=== PATIENT | male | born 1960 | race American Indian/Alaskan Native ===

== ENCOUNTER 2017-12-29 10:38 | Emergency (ER) | payer BC ==
[2017-12-29 11:19] VITALS: BP 131/89
--- NOTE | 2017-12-29 12:47 | Emergency Department Report ---
ED General Adult HPI - General Chief complaint: Pain General Stated complaint: FULL BODY SPASM Time Seen by Provider: 12/29/17 12:47 Source: patient Mode of arrival: Ambulatory Limitations: No Limitations - History of Present Illness Initial comments: This is a 57-year-old male here complaining of generalized spasm for 2 days. He reports that he has had this in the past and he has been followed by Dr. Mendoza who gave him vitamin D. He said that this is something that he gets periodically. Patient states that he drinks more than 2 L of water daily. He reports that when he has as before he had blood work done at Dr. Mendoza's office and reports that everything was normal. Patient states that he does a lot of heavy lifting at work and he thinks this was causing this. Spasms intermittent that feels tight and 7 out of 10. No medication taken prior to coming to the emergency room. MD Complaint: Generalized muscle spasm Onset/Timin -: days(s) Location: neck, back, upper extremity, lower extremity Radiation: non-radiation Severity scale (0 -10): 7 Quality: other (tight) Improves with: rest Worsens with: movement Associated Symptoms: denies: confusion, chest pain, cough, diaphoresis, fever/ chills, headaches, loss of appetite, malaise, nausea/vomiting, rash, seizure, shortness of breath, syncope, weakness Treatments Prior to Arrival: none - Related Data Home Medications Medication Instructions Recorded Confirmed Last Taken Lisinopril [Zestril TAB] 10 mg PO QDAY 07/17/15 07/17/15 07/17/15 Previous Rx's Medication Instructions Recorded Last Taken Type Azithromycin [Zithromax Z-MARIXA] 1 dose PO DAILY 5 Days tab 07/17/15 Unknown Rx Benzonatate [Tessalon Perles] 100 mg PO Q8HR #30 capsule 07/17/15 Unknown Rx Oxycodone HCl/Acetaminophen 1 each PO Q6HR PRN #20 tablet 07/17/15 Unknown Rx [Percocet 10/325 mg] Cyclobenzaprine [Flexeril] 10 mg PO TID PRN #12 tablet 12/29/17 Unknown Rx Allergies Allergy/AdvReac Type Severity Reaction Status Date / Time ibuprofen [From Motrin] Allergy Nausea Verified 07/17/15 08:49 ED Review of Systems ROS: Stated complaint: FULL BODY SPASM Other details as noted in HPI Constitutional: denies: chills, fever Eyes: denies: eye pain, eye discharge, vision change ENT: denies: ear pain, throat pain Respiratory: denies: cough, shortness of breath, SOB with exertion, SOB at rest , stridor, wheezing Cardiovascular: denies: chest pain, palpitations, edema, syncope Endocrine: denies: excessive sweating, increased hunger, increased thirst, unexplained weight gain Gastrointestinal: denies: abdominal pain, nausea, vomiting, diarrhea, constipation, hematemesis, melena, hematochezia Genitourinary: denies: urgency, dysuria, frequency, hematuria, discharge Musculoskeletal: denies: back pain, joint swelling, arthralgia Skin: denies: rash, lesions Neurological: denies: headache, weakness, numbness, paresthesias, confusion, abnormal gait, vertigo Psychiatric: denies: anxiety, depression ED Past Medical Hx - Past Medical History Previous Medical History?: Yes Hx Hypertension: Yes Hx Arthritis: Yes - Surgical History Past Surgical History?: No - Family History Family history: hypertension - Social History Smoking Status: Former Smoker Substance Use Type: Prescribed - Medications Home Medications: Home Medications Medication Instructions Recorded Confirmed Last Taken Type Azithromycin [Zithromax Z-MARIXA] 1 dose PO DAILY 5 Days tab 07/17/15 Unknown Rx Benzonatate [Tessalon Perles] 100 mg PO Q8HR #30 capsule 07/17/15 Unknown Rx Lisinopril [Zestril TAB] 10 mg PO QDAY 07/17/15 07/17/15 07/17/15 History Oxycodone HCl/Acetaminophen 1 each PO Q6HR PRN #20 tablet 07/17/15 Unknown Rx [Percocet 10/325 mg] Cyclobenzaprine [Flexeril] 10 mg PO TID PRN #12 tablet 12/29/17 Unknown Rx ED Physical Exam - General Limitations: No Limitations General appearance: alert, in no apparent distress - Head Head exam: Present: atraumatic, normocephalic, normal inspection - Eye Eye exam: Present: normal appearance, PERRL, EOMI Pupils: Present: normal accommodation - ENT ENT exam: Present: normal exam, normal orophraynx, mucous membranes moist, TM's normal bilaterally, normal external ear exam - Neck Neck exam: Present: normal inspection, full ROM, other (no C-spine tenderness). Absent: tenderness, lymphadenopathy - Respiratory Respiratory exam: Present: normal lung sounds bilaterally. Absent: respiratory distress, chest wall tenderness - Cardiovascular Cardiovascular Exam: Present: regular rate, normal rhythm, normal heart sounds. Absent: systolic murmur, diastolic murmur - GI/Abdominal GI/Abdominal exam: Present: soft, normal bowel sounds. Absent: distended, tenderness, guarding, rebound, rigid, organomegaly, mass, bruit, pulsatile mass , hernia - Extremities Exam Extremities exam: Present: normal inspection, full ROM, normal capillary refill , other (no clubbing, cyanosis or edema. +2 pulses. Extremities and no neurovascular compromise). Absent: tenderness, pedal edema, joint swelling, calf tenderness - Back Exam Back exam: Present: normal inspection, full ROM, other (ambulates without any difficulties). Absent: tenderness, CVA tenderness (R), CVA tenderness (L), muscle spasm, paraspinal tenderness, vertebral tenderness, rash noted - Neurological Exam Neurological exam: Present: alert, oriented X3, normal gait, reflexes normal, other (No focal neurological deficit). Absent: motor sensory deficit - Psychiatric Psychiatric exam: Present: normal affect, normal mood - Skin Skin exam: Present: warm, dry, intact, normal color. Absent: rash ED Course Vital Signs 12/29/17 11:14 Temperature 98 F Pulse Rate 87 Respiratory 20 Rate Blood Pressure 131/89 O2 Sat by Pulse 99 Oximetry - Reevaluation(s) Reevaluation #1: 12/29/17 14:23 Patient received normal saline 1 L emergency room and he is feeling better. ED Medical Decision Making - Lab Data Result diagrams: 12/29/17 12:55 Lab Results 12/29/17 Range/Units 12:55 Sodium 135 L (137-145) mmol/L Potassium 4.7 (3.6-5.0) mmol/L Chloride 93.8 L (98-107) mmol/L Carbon Dioxide 25 (22-30) mmol/L Anion Gap 21 mmol/L BUN 18 (9-20) mg/dL Creatinine 1.1 (0.8-1.5) mg/dL Estimated GFR > 60 ml/min BUN/Creatinine Ratio 16 % Glucose 111 H (75-100) mg/dL Calcium 10.2 (8.4-10.2) mg/dL Magnesium 1.80 (1.7-2.3) mg/dL - Medical Decision Making ED course: He reports that he is having generalized spasm 2 days. He reports that he lives heavy objects at work and thinks that this why he is having spasm. He's had similar incident in the past . Follow-up by Dr. Mendoza who is his primary care physician. Here to be evaluated Patient was seen and examined by myself . BMP stable except sodium is 135 which is mildly decrease, magnesium is normal. I discussed the patient's diagnosis and treatment plan he was understanding and he is feeling better after IV fluid. A/P 1: Spasm, Generalized-hydrated with normal saline 1 L and studies: Better. will discharge home on Flexeril Patient headache and the lab work, diagnosis, treatment plan and medication. He was understanding Patient discharged home in stable condition to follow up with his PCP in 2 days. VS stable and is afebrile. Patient studies: Better. I discussed with him to his condition worsens to return to the emergency room and he was understanding. Patient discharged home in stable condition with prescription for Flexeril and to increase his fluid intake. - Differential Diagnosis electrolyte imbalance, generalized muscle spasm Critical care attestation.: If time is entered above; I have spent that time in minutes in the direct care of this critically ill patient, excluding procedure time. ED Disposition Clinical Impression: Spasm of muscle Disposition: DC-01 TO HOME OR SELFCARE Is pt being admited?: No Does the pt Need Aspirin: No Condition: Stable Instructions: Muscle Spasm (ED) Additional Instructions: Please follow-up with your primary care physician in 2 days Take Flexeril as instructed as to not drive or operate heavy machinery while taking this medication as causes drowsiness return to emergency room if his symptoms worsen or returns. Prescriptions: Cyclobenzaprine [Flexeril] 10 mg PO TID PRN #12 tablet PRN Reason: Muscle Spasm Referrals: PRIMARY CARE, [Primary Care Provider] - 12/31/17 Forms: Work/School Release Form(ED)
[2017-12-29 13:29] LABS: BUN/Creatinine Ratio 16; Blood Urea Nitrogen 18 mg/dL (9-20); Calcium 10.2 mg/dL (8.4-10.2); Hemolysis Index 19
[2017-12-29] MEDS ORDERED: NACL 0.9% 1000 ML 1,000 ML IV ONE (14:16)
== END 2017-12-29 14:46 | disposition home or self-care (01) ==
LOC: ED 10:38
DX: M62.838 Other muscle spasm (principal); I10 Essential (primary) hypertension; Z87.891 Personal history of nicotine dependence
CPT/HCPCS: 36415; 80048; 83735; 99283

== ENCOUNTER 2020-05-07 16:08 | Emergency (ER) | payer SELFPAY ==
[2020-05-07] MEDS ORDERED: IPRATROPIUM 0.02% NEBU 2.5 ML IH ONE ×2 (16:15→16:41)
[2020-05-07] MEDS ORDERED: ALBUTEROL 2.5 MG/3 ML NEBU IH ONE ×4 (16:15→17:16)
[2020-05-07 16:55] VITALS: BP 169/109
[2020-05-07] MEDS ORDERED: ACETAMINOPEN W/CODEINE 120-12MG ORAL LIQD 5 ML PO STA (16:55)
[2020-05-07] MEDS ORDERED: predniSONE 50 MG TAB PO STA (16:55)
[2020-05-07] MEDS ORDERED: ONDANSETRON 4 MG ODT TAB PO STA (16:56)
--- NOTE | 2020-05-07 17:02 | Emergency Department Report ---
ED Shortness of Breath HPI - General Chief Complaint: Dyspnea/Respdistress Stated Complaint: LT ARM PAIN/BREATHING PROBLEM Time Seen by Provider: 05/07/20 16:44 Source: patient Mode of arrival: Ambulatory Limitations: No Limitations - History of Present Illness Initial Comments: 59-year-old [place] male presents emergency department complaining of 1 week history of progressive worsening shortness of breath and running out of his asthma medication at home reporting having a productive cough with wheezing. MD Complaint: shortness of breath -: week(s) (1) Severity: mild Improves With: nothing Worsens With: nothing Associated Symptoms: cough - Related Data Home Medications Medication Instructions Recorded Confirmed Last Taken lisinopriL [Zestril TAB] 10 mg PO QDAY 07/17/15 07/17/15 07/17/15 Previous Rx's Medication Instructions Recorded Last Taken Type Azithromycin [Zithromax Z-MARIXA] 1 dose PO DAILY 5 Days tab 07/17/15 Unknown Rx Benzonatate [Tessalon Perles] 100 mg PO Q8HR #30 capsule 07/17/15 Unknown Rx Oxycodone HCl/Acetaminophen 1 each PO Q6HR PRN #20 tablet 07/17/15 Unknown Rx [Percocet 10/325 mg] Cyclobenzaprine [Flexeril] 10 mg PO TID PRN #12 tablet 12/29/17 Unknown Rx Albuterol Mdi (or & Nicu Only) 1 puff IH Q4-6H PRN #1 inha 05/07/20 Unknown Rx [ProAir HFA Inhaler] Azithromycin [Zithromax] 500 mg PO QDAY #5 tablet 05/07/20 Unknown Rx Benzonatate [Tessalon Perles] 100 mg PO Q8HR #20 capsule 05/07/20 Unknown Rx predniSONE [Deltasone] 50 mg PO QDAY #5 tab 05/07/20 Unknown Rx Allergies Allergy/AdvReac Type Severity Reaction Status Date / Time ibuprofen [From Motrin] Allergy Nausea Verified 07/17/15 08:49 ED Review of Systems ROS: Stated complaint: LT ARM PAIN/BREATHING PROBLEM Other details as noted in HPI Comment: All other systems reviewed and negative ED Past Medical Hx - Past Medical History Hx Hypertension: Yes Hx Arthritis: Yes - Social History Smoking Status: Unknown if ever smoked Substance Use Type: None - Medications Home Medications: Home Medications Medication Instructions Recorded Confirmed Last Taken Type Azithromycin [Zithromax Z-MARIXA] 1 dose PO DAILY 5 Days tab 07/17/15 Unknown Rx Benzonatate [Tessalon Perles] 100 mg PO Q8HR #30 capsule 07/17/15 Unknown Rx Oxycodone HCl/Acetaminophen 1 each PO Q6HR PRN #20 tablet 07/17/15 Unknown Rx [Percocet 10/325 mg] lisinopriL [Zestril TAB] 10 mg PO QDAY 07/17/15 07/17/15 07/17/15 History Cyclobenzaprine [Flexeril] 10 mg PO TID PRN #12 tablet 12/29/17 Unknown Rx Albuterol Mdi (or & Nicu Only) 1 puff IH Q4-6H PRN #1 inha 05/07/20 Unknown Rx [ProAir HFA Inhaler] Azithromycin [Zithromax] 500 mg PO QDAY #5 tablet 05/07/20 Unknown Rx Benzonatate [Tessalon Perles] 100 mg PO Q8HR #20 capsule 05/07/20 Unknown Rx predniSONE [Deltasone] 50 mg PO QDAY #5 tab 05/07/20 Unknown Rx ED Physical Exam - General Limitations: No Limitations General appearance: alert, in no apparent distress - Head Head exam: Present: atraumatic, normocephalic - Eye Eye exam: Present: normal appearance - ENT ENT exam: Present: mucous membranes moist - Neck Neck exam: Present: normal inspection - Respiratory Respiratory exam: Present: normal lung sounds bilaterally, wheezes, rhonchi. Absent: respiratory distress, chest wall tenderness, decreased breath sounds - Cardiovascular Cardiovascular Exam: Present: regular rate, normal rhythm. Absent: systolic murmur, diastolic murmur, rubs, gallop - GI/Abdominal GI/Abdominal exam: Present: soft, normal bowel sounds - Rectal Rectal exam: Present: deferred - Extremities Exam Extremities exam: Present: normal inspection - Back Exam Back exam: Present: normal inspection - Neurological Exam Neurological exam: Present: alert, oriented X3, CN II-XII intact, normal gait - Psychiatric Psychiatric exam: Present: normal affect, normal mood. Absent: anxious, flat affect - Skin Skin exam: Present: warm, dry, intact, normal color. Absent: rash, cyanosis, diaphoretic, erythema, petechiae, pallor, abrasion ED Course Vital Signs 11/17/20 16:54 Temperature 98.0 F Pulse Rate 79 Respiratory 20 Rate Blood Pressure 169/109 [Left] O2 Sat by Pulse 97 Oximetry ED Medical Decision Making - Medical Decision Making This patient presents with acute cough, most consistent with anxiety/asthma. Differential diagnosis includes bronchitis, asthma, pneumonia, hyperreactive airways. Presentation not consistent with acute bacterial pneumonia, influenza, asthma, transient airway hyperresponsiveness. Presentation not consistent with chronic causes of cough (including GERD, asthma, postnasal discharge, medication side effect, CHF, lung cancer or mass). Plan: , supportive care, reassess Critical care attestation.: If time is entered above; I have spent that time in minutes in the direct care of this critically ill patient, excluding procedure time. ED Disposition Clinical Impression: Asthmatic bronchitis Is pt being admited?: No Does the pt Need Aspirin: No Condition: Stable Instructions: Chronic Bronchitis (ED), Asthma, Adult, Bronchospasm, Adult, Cough, Adult, [id number], How to Use a Metered Dose Inhaler, How to Use a Nebulizer, Adult Referrals: PRIMARY CAREMD [Primary Care Provider] - 3-5 Days FRANSISCO CUMMINGS MD [Staff Physician] - 3-5 Days
== END 2020-05-07 19:37 | disposition left against medical advice (07) ==
LOC: ED 16:08
DX: J45.909 Unspecified asthma, uncomplicated (principal); I10 Essential (primary) hypertension; M19.90 Unspecified osteoarthritis, unspecified site; Z79.899 Other long term (current) drug therapy; Z88.8 Allergy status to other drugs, medicaments and biological substances
CPT/HCPCS: 94640; 99282; J7512; Q0162

== ENCOUNTER 2020-05-28 17:04 | Inpatient (IN) | payer OTHER ==
[2020-05-28] MEDS ORDERED: predniSONE 50 MG TAB PO STA (18:46)
[2020-05-28] MEDS ORDERED: ALBUTEROL 2.5 MG/3 ML NEBU IH ONE (18:46)
--- NOTE | 2020-05-28 18:53 | Emergency Department Report ---
Blank Doc - Documentation Documentation: 59-year-old F [place] male past medical history of hypertension and asthma pr esents emerged department complaining of a few day history of waxing and waning but progressively worsening shortness of breath associated with chest pain and dyspnea. States has been experiencing some some wheezing which she thinks may be residual from her recent bronchitis that was diagnosed a couple of weeks ago but he was unable to complete his medication overall requirements due to a lack of insurance so thinks that those symptoms had worsened he also has began to develop some lower extremity swelling to his legs pop bilaterally but did have an episode of chest pain and numbness to the left arm as well. This initial assessment/diagnostic orders/clinical plan/treatment(s) is/are subject to change based on patients health status, clinical progression and re- assessment by fellow clinical providers in the ED. Further treatment and workup at subsequent clinical providers discretion. Patient/guardian urged not to elope from the ED as their condition may be serious if not clinically assessed and managed. Initial orders include: EKG, chest x-ray, labs
[2020-05-28 19:21] LABS: Basophils % (Auto) 0.8 % (0.0-1.8); Eosinophils # (Auto) 0.1 K/mm3 (0.0-0.4); Eosinophils % (Auto) 1.9 % (0.0-4.3); Lymphocytes % (Auto) 18.3 % (13.4-35.0); Mean Corpuscular HGB Conc 33 % (32-34); Mean Corpuscular Volume 88 fl (84-94); Monocytes # (Auto) 0.5 K/mm3 (0.0-0.8); Monocytes % (Auto) 8.9 % (0.0-7.3); Platelet Count 166 K/mm3 (140-440); Red Blood Count 4.86 M/mm3 (3.65-5.03); Red Cell Distribution Width 15.9 % (13.2-15.2)
[2020-05-28] MEDS ORDERED: KETOROLAC 30 MG/1 ML INJ IV ONE (19:34)
[2020-05-28] MEDS ORDERED: methylPREDNISolone Sod Succinate 125 MG/2 ML INJ IV ONE (19:34)
[2020-05-28] MEDS ORDERED: ONDANSETRON 4 MG/2 ML INJ IV ONE (19:34)
[2020-05-28] MEDS ORDERED: FUROSEMIDE 40 MG/4 ML INJ IV ONE (19:38)
--- NOTE | 2020-05-28 19:43 | XRay Report ---
XR chest routine 2V INDICATION / CLINICAL INFORMATION: DYSPNEA. COMPARISON: None available. FINDINGS: SUPPORT DEVICES: None. HEART /PULMONARY VASCULATURE: The cardiac silhouette is enlarged with mild prominence of the pulmonar y vasculature appear LUNGS / PLEURA: Trace bibasilar pleural effusions. No airspace consolidation is identified. No pneumo thorax. ADDITIONAL FINDINGS: No significant additional findings. IMPRESSION: Cardiomegaly with mild prominence of the pulmonary vasculature, may reflect early CHF. Trace bibasila r pleural effusions are nonspecific. No evidence of pneumonia. Signer Name: Jg Sargent MD Signed: 05/28/2020 7:39 PM Workstation Name: [id number]
[2020-05-28 19:44] LABS: Alanine Aminotransferase 49 units/L (7-56); Albumin 3.5 g/dL (3.9-5); BUN/Creatinine Ratio 10; Blood Urea Nitrogen 10 mg/dL (9-20); Calcium 9.5 mg/dL (8.4-10.2); Hemolysis Index 8
--- NOTE | 2020-05-28 21:09 | Emergency Department Report ---
ED Shortness of Breath HPI - General Chief Complaint: Adult Asthma Stated Complaint: SOB Source: patient Mode of arrival: Ambulatory Limitations: No Limitations - History of Present Illness Initial Comments: Patient is a 59-year-old -[place] male with a history of hypertension, chronic osteoarthritis, tobacco abuse and chronic bronchitis who presents to the ED with complaint of acute onset persistent shortness of breath, persistent dry cough with wheezing, bilateral lower extremity swelling and pain for the last 2 weeks, worse in the last 5 days. Patient states that any movement or exertion makes the shortness of breath worse as well as laying flat on the bed. Patient states that laying down flat in the bed makes breathing difficult so he has to be upright or prop himself with many pillows in the house in order to sleep. Patient denies dizziness, syncope, chest pain, fever, chills, nausea, vomiting, change in vision, palpitations, seizures, abdominal pain, diarrhea, sore throat, headache or hematuria or dysuria. MD Complaint: shortness of breath, cough -: Sudden, week(s) (2) Radiation: other Severity: severe Pain Scale: 7 (Bilateral lower extremity swelling and pain) Quality: other (Chest pressure) Consistency: constant Improves With: nothing Worsens With: lying flat, exertion, movement Known History Of: COPD, congestive heart failure Context: smoke/fume exposure Associated Symptoms: cough, lower extremity pain (And swelling), other (Orthopnea) Treatments Prior to Arrival: none - Related Data Home Oxygen Therapy: No Home Medications Medication Instructions Recorded Confirmed Last Taken lisinopriL [Zestril TAB] 10 mg PO QDAY 07/17/15 07/17/15 07/17/15 Previous Rx's Medication Instructions Recorded Last Taken Type Azithromycin [Zithromax Z-MARIXA] 1 dose PO DAILY 5 Days tab 07/17/15 Unknown Rx Benzonatate [Tessalon Perles] 100 mg PO Q8HR #30 capsule 07/17/15 Unknown Rx Oxycodone HCl/Acetaminophen 1 each PO Q6HR PRN #20 tablet 07/17/15 Unknown Rx [Percocet 10/325 mg] Cyclobenzaprine [Flexeril] 10 mg PO TID PRN #12 tablet 12/29/17 Unknown Rx Albuterol Mdi (or & Nicu Only) 1 puff IH Q4-6H PRN #1 inha 05/07/20 Unknown Rx [ProAir HFA Inhaler] Azithromycin [Zithromax] 500 mg PO QDAY #5 tablet 05/07/20 Unknown Rx Benzonatate [Tessalon Perles] 100 mg PO Q8HR #20 capsule 05/07/20 Unknown Rx predniSONE [Deltasone] 50 mg PO QDAY #5 tab 05/07/20 Unknown Rx Allergies Allergy/AdvReac Type Severity Reaction Status Date / Time ibuprofen [From Motrin] Allergy Nausea Verified 07/17/15 08:49 ED Review of Systems ROS: Stated complaint: SOB Other details as noted in HPI Constitutional: malaise. denies: chills, fever Eyes: denies: eye pain, eye discharge, vision change ENT: denies: ear pain, throat pain Respiratory: cough, orthopnea, shortness of breath, SOB with exertion, wheezing Cardiovascular: dyspnea on exertion, orthopnea, paroxysmal nocturnal dyspnea. denies: chest pain, palpitations Endocrine: no symptoms reported Gastrointestinal: denies: abdominal pain, nausea, vomiting, diarrhea Genitourinary: denies: urgency, dysuria Musculoskeletal: other (Bilateral lower extremity pain and swelling). denies: back pain, joint swelling, arthralgia Skin: denies: rash, lesions Neurological: denies: headache, weakness, paresthesias Psychiatric: denies: anxiety, depression Hematological/Lymphatic: denies: easy bleeding, easy bruising ED Past Medical Hx - Past Medical History Previous Medical History?: Yes Hx Hypertension: Yes Hx Arthritis: Yes - Social History Smoking Status: Never Smoker Substance Use Type: None - Medications Home Medications: Home Medications Medication Instructions Recorded Confirmed Last Taken Type Azithromycin [Zithromax Z-MARIXA] 1 dose PO DAILY 5 Days tab 07/17/15 Unknown Rx Benzonatate [Tessalon Perles] 100 mg PO Q8HR #30 capsule 07/17/15 Unknown Rx Oxycodone HCl/Acetaminophen 1 each PO Q6HR PRN #20 tablet 07/17/15 Unknown Rx [Percocet 10/325 mg] lisinopriL [Zestril TAB] 10 mg PO QDAY 07/17/15 07/17/15 07/17/15 History Cyclobenzaprine [Flexeril] 10 mg PO TID PRN #12 tablet 12/29/17 Unknown Rx Albuterol Mdi (or & Nicu Only) 1 puff IH Q4-6H PRN #1 inha 05/07/20 Unknown Rx [ProAir HFA Inhaler] Azithromycin [Zithromax] 500 mg PO QDAY #5 tablet 05/07/20 Unknown Rx Benzonatate [Tessalon Perles] 100 mg PO Q8HR #20 capsule 05/07/20 Unknown Rx predniSONE [Deltasone] 50 mg PO QDAY #5 tab 05/07/20 Unknown Rx ED Physical Exam - General Limitations: No Limitations General appearance: alert, in no apparent distress - Head Head exam: Present: atraumatic, normocephalic, normal inspection - Eye Eye exam: Present: normal appearance, PERRL, EOMI - ENT ENT exam: Present: normal exam, normal orophraynx, mucous membranes moist, TM's normal bilaterally, normal external ear exam - Neck Neck exam: Present: normal inspection, full ROM - Respiratory Respiratory exam: Present: wheezes (Moderately diffuse coarse wheezes throughout). Absent: respiratory distress, rales, rhonchi, stridor, chest wall tenderness, accessory muscle use, decreased breath sounds, prolonged expiratory - Cardiovascular Cardiovascular Exam: Present: normal rhythm, tachycardia, normal heart sounds. Absent: systolic murmur, diastolic murmur, rubs, gallop - GI/Abdominal GI/Abdominal exam: Present: soft, normal bowel sounds. Absent: tenderness, guarding, rebound, hyperactive bowel sounds, hypoactive bowel sounds, organomegaly - Extremities Exam Extremities exam: Present: full ROM, tenderness (Palpable moderate bilateral calf tenderness), normal capillary refill, pedal edema (2+ bilateral lower extremity edema), joint swelling, calf tenderness (Bilateral calf tenderness moderately) - Back Exam Back exam: Present: normal inspection, full ROM. Absent: tenderness, CVA tenderness (R), CVA tenderness (L), muscle spasm, paraspinal tenderness, vertebral tenderness - Neurological Exam Neurological exam: Present: alert, oriented X3, CN II-XII intact, normal gait, reflexes normal - Psychiatric Psychiatric exam: Present: normal affect, normal mood - Skin Skin exam: Present: warm, dry, intact, normal color. 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 COMPARISON: None available. FINDINGS: SUPPORT DEVICES: None. HEART /PULMONARY VASCULATURE: The cardiac silhouette is enlarged with mild prominence of the pulmonary vasculature appear LUNGS / PLEURA: Trace bibasilar pleural effusions. No airspace consolidation is identified. No pneumothorax. ADDITIONAL FINDINGS: No significant additional findings. IMPRESSION: Cardiomegaly with mild prominence of the pulmonary vasculature, may reflect early CHF. Trace bibasilar pleural effusions are nonspecific. No evidence of pneumonia. Signer Name: Netea Sargent MD Signed: 05/28/2020 7:39 PM Workstation Name: [id number] Transcribed By: EDWIN Dictated By: NEETA SARGENT MD Electronically Authenticated By: NEETA SARGENT MD Signed Date/Time: 05/28/201938 DD/ 36 TD/TT: --------- Findings [facility] [address] [place] [address] Vascular Lab Report Signed Patient: JULIEN DEL RIO MR#: [id number] : 1960 Acct:[id number] Age/Sex: 59 / M ADM Date: 05/28/20 Loc: ED Attending Dr: Ordering Physician: ANGELICA QUINN Date of Service: 05/28/20 Procedure(s): VL venous duplex LE BILAT Accession Number(s): [id number] cc: ANGELICA QUINN DUPLEX DOPPLER LOWER EXTREMITY VEINS, BILATERAL INDICATION / CLINICAL INFORMATION: Bilateral LE swelling and pain. TECHNIQUE: Duplex doppler imaging was performed through the veins of both lower extremities using venous compression and other maneuvers. COMPARISON: None available. FINDINGS: RIGHT COMMON FEMORAL VEIN: Negative. RIGHT FEMORAL VEIN: Negative. RIGHT POPLITEAL VEIN: Negative. RIGHT CALF VEINS: Negative. LEFT COMMON FEMORAL VEIN: Negative. LEFT FEMORAL VEIN: Negative. LEFT POPLITEAL VEIN: Negative. LEFT CALF VEINS: Negative. ADDITIONAL FINDINGS: Bilateral lower extremity edema. IMPRESSION: 1. No sonographic evidence for DVT in either lower extremity. Signer Name: Rossy Mcfadden MD Signed: 05/28/2020 9:09 PM Workstation Name: [id number] Transcribed By: RH Dictated By: ROSSY MCFADDEN III Electronically Authenticated By: ROSSY MCFADDEN III Signed Date/Time: 05/28/202108 DD/ 07 TD/TT: - Medical Decision Making This is a 59-year-old -Guyanese male with a history of hypertension, chronic osteoarthritis, tobacco abuse and chronic bronchitis who presents to the ED with complaint of acute onset persistent shortness of breath, persistent dry cough with wheezing, bilateral lower extremity swelling and pain for the last 2 weeks, worse in the last 5 days. Patient states that any movement or exertion makes the shortness of breath worse as well as laying flat on the bed. Patient states that laying down flat in the bed makes breathing difficult so he has to be upright or prop himself with many pillows in the house in order to sleep. In the ED, patient is alert and oriented x3 and is not in distress. Patient is however afebrile and tachycardic in triage. Chest x-ray showed cardiomegaly with mild prominence of the pulmonary vasculature, may reflect early CHF. Trace bibasilar pleural effusions are nonspecific. No evidence of pneumonia. Lab test results were reviewed and showed BNP of 2831, initial troponin of 0.021, mild hyerkalemia of 5.2 which may be due to hemolysis, and AST of 41. Patient was initially treated in the ED with aspirin, Solu-Medrol, DuoNeb and Lasix. The bilateral lower extremity Doppler ultrasound showed no sonographic evidence for DVT in either lower extremity. 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 Patient care was discussed with the hospitalist physician Dr. Rodriguez who evaluated the patient and admitted the patient to the hospital. - Differential Diagnosis CHF; pneumonia; bronchitis; ACS; asthma; DVT; PE Critical Care Time: Yes Critical care time in (mins) excluding proc time.: 40 Critical care attestation.: If time is entered above; I have spent that time in minutes in the direct care of this critically ill patient, excluding procedure time. ED Disposition Clinical Impression: SOB (shortness of breath) on exertion, Pedal edema Acute CHF (congestive heart failure) Qualifiers: Heart failure type: unspecified Qualified Code(s): I50.9 - Heart failure, unspecified Disposition: OP ADMIT IP TO THIS HOSP Is pt being admited?: Yes Does the pt Need Aspirin: No Condition: Stable Instructions: Shortness of Breath, Adult, [id number] Referrals: PRIMARY CARE, [Primary Care Provider] - 3-5 Days Time of Disposition: 21:16 Print Language: UZBEK
--- NOTE | 2020-05-28 21:13 | Vascular Lab Report ---
DUPLEX DOPPLER LOWER EXTREMITY VEINS, BILATERAL INDICATION / CLINICAL INFORMATION: Bilateral LE swelling and pain. TECHNIQUE: Duplex doppler imaging was performed through the veins of both lower extremities using venous tseven jenna and other maneuvers. COMPARISON: None available. FINDINGS: RIGHT COMMON FEMORAL VEIN: Negative. RIGHT FEMORAL VEIN: Negative. RIGHT POPLITEAL VEIN: Negative. RIGHT CALF VEINS: Negative. LEFT COMMON FEMORAL VEIN: Negative. LEFT FEMORAL VEIN: Negative. LEFT POPLITEAL VEIN: Negative. LEFT CALF VEINS: Negative. ADDITIONAL FINDINGS: Bilateral lower extremity edema. IMPRESSION: 1. No sonographic evidence for DVT in either lower extremity. Signer Name: Gabriel Mcfadden MD Signed: 05/28/2020 9:09 PM Workstation Name: [id number]
[2020-05-28] MEDS ORDERED: ASPIRIN 81 MG TAB CHEW PO ONE (21:19)
[2020-05-28] MEDS ORDERED: LORazepam 2 MG/ML VIAL IV ONE (21:37)
[2020-05-28] MEDS ORDERED: ACETAMINOPHEN 325 MG TAB PO PRN (22:39)
[2020-05-28] MEDS ORDERED: MAGNESIUM HYDROXIDE (MOM) ORAL LIQD UDC PO PRN (22:39)
--- NOTE | 2020-05-28 22:47 | History and Physical Report ---
History of Present Illness Date of examination: 05/28/20 Date of admission: 05/28/20 21:40 Chief complaint: Shortness of Breath Cough History of present illness: 59-year-old -[place] male with known history of hypertension presenting to the emergency room today complaining of shortness of breath, cough and lower extremity swelling which has been ongoing for about 2 weeks. Symptoms were said to have gotten worse over the past few days and decided to report to the emergency room. Cough has been nonproductive. He denies any chest pain, no fever or chills, no headache or dizziness, no nausea vomiting, no abdominal pain, no hematuria or dysuria. He denies any sick contacts and no recent travel, denies any contact with anyone with COVID-19. Patient has been having orthopnea and has had to prop himself up on pillows at home in order to feel comfortable. He has been wheezing occasionally. Work-up in the emergency room today reveals elevated BNP, chest x-ray showed cardiomegaly with pulmonary vascular congestion, EKG shows sinus tachycardia. Patient has been admitted for CHF which appears to be new onset. Past History Past Medical History: arthritis, hypertension Past Surgical History: No surgical history Social history: smoking (1 Pack per day) Family history: no significant family history Medications and Allergies Allergies Allergy/AdvReac Type Severity Reaction Status Date / Time ibuprofen [From Motrin] Allergy Nausea Verified 07/17/15 08:49 Home Medications Medication Instructions Recorded Confirmed Last Taken Type Azithromycin [Zithromax Z-MARIXA] 1 dose PO DAILY 5 Days tab 07/17/15 Unknown Rx Benzonatate [Tessalon Perles] 100 mg PO Q8HR #30 capsule 07/17/15 Unknown Rx Oxycodone HCl/Acetaminophen 1 each PO Q6HR PRN #20 tablet 07/17/15 Unknown Rx [Percocet 10/325 mg] lisinopriL [Zestril TAB] 10 mg PO QDAY 07/17/15 07/17/15 07/17/15 History Cyclobenzaprine [Flexeril] 10 mg PO TID PRN #12 tablet 12/29/17 Unknown Rx Albuterol Mdi (or & Nicu Only) 1 puff IH Q4-6H PRN #1 inha 05/07/20 Unknown Rx [ProAir HFA Inhaler] Azithromycin [Zithromax] 500 mg PO QDAY #5 tablet 05/07/20 Unknown Rx Benzonatate [Tessalon Perles] 100 mg PO Q8HR #20 capsule 05/07/20 Unknown Rx predniSONE [Deltasone] 50 mg PO QDAY #5 tab 05/07/20 Unknown Rx Review of Systems Constitutional: no fever, no chills Ears, nose, mouth and throat: no nasal congestion, no sore throat Cardiovascular: orthopnea, no chest pain, no palpitations Respiratory: cough, shortness of breath Genitourinary Male: no dysuria, no hematuria, no nocturia Musculoskeletal: no neck pain, no low back pain Integumentary: no rash, no pruritis Neurological: no headaches, no convulsions, no confusion Psychiatric: no anxiety, no depression Exam - Constitutional Vitals: Temp Pulse Resp BP Pulse Ox 98.1 F 110 H 20 132/97 100 05/28/20 17:49 05/28/20 17:49 05/28/20 17:49 05/28/20 17:49 05/28/20 17:49 General appearance: Present: no acute distress, well-nourished - EENT Eyes: Present: PERRL, EOM intact. Absent: scleral icterus ENT: hearing intact, clear oral mucosa, dentition normal - Neck Neck: Present: supple, normal ROM - Respiratory Respiratory effort: normal Respiratory: bilateral: rales - Cardiovascular Rhythm: regular Heart Sounds: Present: S1 & S2. Absent: gallop, systolic murmur, diastolic murmur, rub - Extremities Extremities: no ischemia, pulses intact, pulses symmetrical, Full ROM Extremity abnormal: edema (2+ bilateral lower extremity edema) Peripheral Pulses: within normal limits - Abdominal General gastrointestinal: Present: soft, non-tender, non-distended, normal bowel sounds. Absent: mass - Integumentary Integumentary: Present: clear, warm, dry - Musculoskeletal Musculoskeletal: strength equal bilaterally - Psychiatric Psychiatric: appropriate mood/affect, intact judgment & insight, memory intact, cooperative - Neurologic Neurologic: CNII-XII intact, no focal deficits, moves all extremities HEART Score - HEART Score Troponin: Troponin T 0.027 ng/mL (0.00-0.029) 05/28/20 21:03 Results - Labs CBC & Chem 7: 05/28/20 19:03 05/28/20 19:03 Labs: Abnormal lab results 05/28/20 05/28/20 Range/Units 19:03 19:03 RDW 15.9 H (13.2-15.2) % [place] % (Auto) 8.9 H (0.0-7.3) % Lymph # (Auto) 1.0 L (1.2-5.4) K/mm3 Seg Neutrophils % 70.1 H (40.0-70.0) % Potassium 5.2 H (3.6-5.0) mmol/L AST 41 H (5-40) units/L NT-Pro-B Natriuret Pep 2831 H (0-900) pg/mL Total Protein 5.9 L (6.3-8.2) g/dL Albumin 3.5 L (3.9-5) g/dL Assessment and Plan - Patient Problems (1) Acute CHF (congestive heart failure) Current Visit: Yes Status: Acute Qualifiers: Heart failure type: unspecified Qualified Code(s): I50.9 - Heart failure, unspecified Plan to address problem: Patient placed on diuretics will monitor input and output and also monitor daily weights. We will schedule patient for echocardiogram. We will request cardiology evaluation and recommendation. (2) Hypertension Current Visit: Yes Status: Acute Plan to address problem: Monitor vital signs closely. We will continue routine home medications once reconciled. (3) DVT prophylaxis Current Visit: Yes Status: Acute Plan to address problem: Patient placed on subcutaneous heparin. (4) Full code status Current Visit: Yes Status: Acute
[2020-05-29] MEDS: diphenhydrAMINE 25 MG CAP PO PRN (01:55)
[2020-05-29] MEDS: HEPARIN 5,000 UNIT/1 ML VIAL SUB-Q SCH ×3 (05:55→21:39)
[2020-05-29] MEDS: FUROSEMIDE 40 MG/4 ML INJ IV SCH ×2 (05:55→17:21)
[2020-05-29] MEDS ORDERED: HEPARIN 5,000 UNIT/1 ML VIAL SUB-Q SCH (06:00)
[2020-05-29 08:05] LABS: INR 0.99 (0.87-1.13)
[2020-05-29 08:06] LABS: Hematocrit 39.7 % (35.5-45.6); Hemoglobin 13.1 gm/dl (11.8-15.2); Mean Corpuscular HGB Conc 33 % (32-34); Mean Corpuscular Volume 87 fl (84-94); Platelet Count 169 K/mm3 (140-440); Red Blood Count 4.54 M/mm3 (3.65-5.03); Red Cell Distribution Width 15.4 % (13.2-15.2)
[2020-05-29 08:17] LABS: BUN/Creatinine Ratio 14; Blood Urea Nitrogen 13 mg/dL (9-20); Calcium 9.1 mg/dL (8.4-10.2); Hemolysis Index 10
[2020-05-29 09:26] LABS: Basophils % (Manual) 0 % (0.0-1.8); Eosinophils % (Manual) 0 % (0.0-4.3); Monocytes % (Manual) 0 % (0.0-7.3); RBC Morphology Normal; Total Cells Counted 100
[2020-05-29 09:27] LABS: Platelet Estimate Consistent w Auto
--- NOTE | 2020-05-29 10:13 | Consultation ---
History of Present Illness Consult date: 05/29/20 Requesting physician: PARDEEP TREVINO Consult reason: congestive heart failure History of present illness: The pt is a 59 YO male with a past medical history of HTN and arthritis. He is previously unknown to our practice. His PCP is Dr. Mendoza. He presented with c/o progressively worsening SOB, GOMEZ, PND and BLE edema for 1 month. He states that he has been somewhat noncompliant with his home BP medication, only takes it intermittently. He recently lost 40lbs via diet and exercise and states that approx 1 month ago, he began experiencing SOB and GOMEZ while trying to walk and run. He denies any chest pain, palpitations, n/v, diaphoresis, dizziness or syncope. He denies any known prior cardiac issues or cardiac w/u. Labwork is significant for pro-BNP 2831, CXR with cardiomegaly and very mild pulmonary vascular congestion. Past History Past Medical History: arthritis, hypertension Past Surgical History: No surgical history Social history: smoking (1 Pack per day) Family history: no significant family history Medications and Allergies Allergies Allergy/AdvReac Type Severity Reaction Status Date / Time ibuprofen [From Motrin] Allergy Nausea Verified 07/17/15 08:49 Home Medications Medication Instructions Recorded Confirmed Last Taken Type Azithromycin [Zithromax Z-MARIXA] 1 dose PO DAILY 5 Days tab 07/17/15 Unknown Rx Benzonatate [Tessalon Perles] 100 mg PO Q8HR #30 capsule 07/17/15 Unknown Rx Oxycodone HCl/Acetaminophen 1 each PO Q6HR PRN #20 tablet 07/17/15 Unknown Rx [Percocet 10/325 mg] lisinopriL [Zestril TAB] 10 mg PO QDAY 07/17/15 07/17/15 07/17/15 History Cyclobenzaprine [Flexeril] 10 mg PO TID PRN #12 tablet 12/29/17 Unknown Rx Albuterol Mdi (or & Nicu Only) 1 puff IH Q4-6H PRN #1 inha 05/07/20 Unknown Rx [ProAir HFA Inhaler] Azithromycin [Zithromax] 500 mg PO QDAY #5 tablet 05/07/20 Unknown Rx Benzonatate [Tessalon Perles] 100 mg PO Q8HR #20 capsule 05/07/20 Unknown Rx predniSONE [Deltasone] 50 mg PO QDAY #5 tab 05/07/20 Unknown Rx Active Meds: Active Medications Acetaminophen (Tylenol) 650 mg PO Q4H PRN PRN Reason: Pain MILD(1-3)/Fever >100.5/ZHANG Diphenhydramine HCl (Benadryl) 25 mg PO QHS PRN PRN Reason: Sleep Last Admin: 05/29/20 01:55 Dose: 25 mg Documented by: Furosemide (Lasix) 40 mg IV BID@0600,1800 [facility] Last Admin: 05/29/20 05:55 Dose: 40 mg Documented by: Heparin Sodium (Porcine) (Heparin) 5,000 unit SUB-Q Q8HR [facility] Last Admin: 05/29/20 05:55 Dose: 5,000 unit Documented by: Magnesium Hydroxide (Milk Of Magnesia) 30 ml PO Q4H PRN PRN Reason: Constipation Ondansetron HCl (Zofran) 4 mg IV Q8H PRN PRN Reason: Nausea And Vomiting Sodium Chloride (Sodium Chloride Flush Syringe 10 Ml) 10 ml IV BID [facility] Sodium Chloride (Sodium Chloride Flush Syringe 10 Ml) 10 ml IV PRN PRN PRN Reason: LINE FLUSH Review of Systems Constitutional: no fever, no chills, no sweats Ears, nose, mouth and throat: no ear pain, no nose pain, no sinus pressure, no sinus pain Cardiovascular: orthopnea, edema, shortness of breath, dyspnea on exertion, paroxysmal nocturnal dyspnea, high blood pressure, leg edema, decreased exercise tolerance, no chest pain, no palpitations, no rapid/irregular heart beat, no syncope, no lightheadedness Respiratory: shortness of breath, dyspnea on exertion, no cough, no congestion, no wheezing, no pain on inspiration Gastrointestinal: no abdominal pain, no nausea, no vomiting, no diarrhea, no constipation, no change in bowel habits Genitourinary Male: no dysuria, no hematuria, no flank pain, no discharge, no urinary frequency, no urinary hesitancy Musculoskeletal: no neck stiffness, no neck pain, no shooting arm pain, no arm numbness/tingling, no low back pain, no shooting leg pain Integumentary: no rash, no pruritis, no redness, no sores, no wounds Neurological: no head injury, no paralysis, no weakness, no parathesias, no numbness, no tingling, no seizures, no syncope Psychiatric: no anxiety Endocrine: no cold intolerance, no heat intolerance Hematologic/Lymphatic: no easy bruising Allergic/Immunologic: no urticaria Physical Examination Vital Signs Temp Pulse Resp BP Pulse Ox 98.1 F 110 H 20 132/97 100 05/28/20 17:49 05/28/20 17:49 05/28/20 17:49 05/28/20 17:49 05/28/20 17:49 General appearance: no acute distress HEENT: Positive: PERRL, Normocephaly, Mucus Membranes Moist Neck: Positive: neck supple, trachea midline Cardiac: Positive: Reg Rate and Rhythm, S1/S2 Lungs: Positive: Decreased Breath Sounds Neuro: Positive: Grossly Intact Abdomen: Negative: Tender Skin: Negative: Rash Musculoskeletal: No Pain Extremities: Present: +2 Edema (BLE) Results 05/29/20 07:17 05/29/20 07:17 Cardiac Enzymes 05/28/20 Range/Units 19:03 AST 41 H (5-40) units/L Coagulation 05/29/20 Range/Units 07:17 PT 13.0 (12.2-14.9) Sec. INR 0.99 (0.87-1.13) CBC 05/28/20 05/29/20 Range/Units 19:03 07:17 WBC 5.7 5.0 (4.5-11.0) K/mm3 RBC 4.86 4.54 (3.65-5.03) M/mm3 Hgb 14.0 13.1 (11.8-15.2) gm/dl Hct 43.0 39.7 (35.5-45.6) % Plt Count 166 169 (140-440) K/mm3 Lymph # (Auto) 1.0 L (1.2-5.4) K/mm3 [place] # (Auto) 0.5 (0.0-0.8) K/mm3 Eos # (Auto) 0.1 (0.0-0.4) K/mm3 Baso # (Auto) 0.0 (0.0-0.1) K/mm3 Comprehensive Metabolic Panel 05/28/20 05/29/20 Range/Units 19:03 07:17 Sodium 142 139 (137-145) mmol/L Potassium 5.2 H 4.9 (3.6-5.0) mmol/L Chloride 105.8 102.6 (98-107) mmol/L Carbon Dioxide 28 25 (22-30) mmol/L BUN 10 13 (9-20) mg/dL Creatinine 1.0 0.9 (0.8-1.3) mg/dL Glucose 100 243 H (75-100) mg/dL Calcium 9.5 9.1 (8.4-10.2) mg/dL AST 41 H (5-40) units/L ALT 49 (7-56) units/L Alkaline Phosphatase 93 (35-129) units/L Total Protein 5.9 L (6.3-8.2) g/dL Albumin 3.5 L (3.9-5) g/dL - Imaging and Cardiology Echo: pending EKG: report reviewed, image reviewed EKG interpretations - Telemetry EKG Rhythm: Sinus Rhythm - EKG Sinus rhythms and dysrhythmias: sinus rhythm Assessment and Plan Initiate GDMT and cont IV lasix BID. F/u BMP in AM. Obtain echo. Further recs to follow per hospital course. The patient has been seen in conjunction with Dr. Larsen who agrees with the assessment and plan of care. - Patient Problems (1) Acute heart failure Current Visit: Yes Status: Acute (2) Uncontrolled hypertension Current Visit: Yes Status: Acute
[2020-05-29] MEDS ORDERED: CYCLOBENZAPRINE 10 MG TAB PO PRN (11:42)
[2020-05-29] MEDS ORDERED: NON-FORMULARY EACH (Oxycodone Hcl/Acetaminophen [Percocet 10/325 Mg] 1 EACH) PO PRN (11:42)
[2020-05-29] MEDS: METOPROLOL SUCCINATE XL 50 MG TAB PO SCH (11:43)
--- NOTE | 2020-05-29 11:46 | Progress Note ---
Assessment and Plan Assessment and plan: 59-year-old -[place] male with known history of hypertension presenting to the emergency room today complaining of shortness of breath, cough and lower extremity swelling which has been ongoing for about 2 weeks. Symptoms were said to have gotten worse over the past few days and decided to report to the emergency room. Cough has been nonproductive. He denies any chest pain, no fever or chills, no headache or dizziness, no nausea vomiting, no abdominal pain, no hematuria or dysuria. He denies any sick contacts and no recent travel, denies any contact with anyone with COVID-19. Patient has been having orthopnea and has had to prop himself up on pillows at home in order to feel comfortable. He has been wheezing occasionally. Per patient he recently lost 40 pounds. Diet and exercise but states that he feels this more due to his medical condition. On admission his chest x-ray showed cardiomegaly with mild pulmonary vascular congestion and a proBNP of 2831 Work-up in the emergency room today reveals elevated BNP, chest x-ray showed cardiomegaly with pulmonary vascular congestion, EKG shows sinus tachycardia. Acute congestive heart failure presumed systolic Hypertension Elevated blood sugar Nausea and vomiting Medical noncompliance Chronic pain syndrome Weight loss of 40 pounds Plan Continue goal-directed medical therapy Continue Lasix Await echo Cardiology input noted Outpatient GI evaluation for age-appropriate colonoscopy Continue home medication Check A1c to ensure no underlying diabetes mellitus DVT and GI prophylaxis History Interval history: Patient seen and examined reports some improvement but not yet at his baseline still with some shortness of breath and leg swelling also complains of chronic pain. Reports some nausea and some tongue discoloration. Informs me that he was recommended to have colonoscopy but unfortunately did not get to do due to his own negligence. Hospitalist Physical - Physical exam Narrative exam: VITAL SIGNS: Reviewed. Exam limited due to the global pandemic and effort to preserve PPE GENERAL: The patient appears normally developed, Vital signs as documented. HEAD: No signs of head trauma. EYES: Pupils are equal. Extraocular motions intact. EARS: Hearing grossly intact. MOUTH: Oropharynx is normal except for missing dentition. NECK: No adenopathy, no JVD. CHEST: Chest with diminished breath sounds bilaterally. No wheezes, rales, or rhonchi. CARDIAC: Regular rate and rhythm. S1 and S2, without murmurs, gallops, or rubs. VASCULAR: +2 edema. Peripheral pulses normal and equal in all extremities. ABDOMEN: Soft, non tender and non distended. No rebound or guarding, and no masses palpated. Bowel Sounds normal. MUSCULOSKELETAL: Good range of motion of all major joints. Extremities without clubbing, cyanosis. +2 pitting edema bilateral lower extremity. NEUROLOGIC EXAM: Alert and oriented x 3 No focal sensory or strength deficits. Speech normal. Follows commands. PSYCHIATRIC: Mood normal. SKIN: detail exam as documented in skin assessment - Constitutional Vitals: Temp Pulse Resp BP Pulse Ox 98.0 F 100 H 20 145/93 98 05/29/20 05:47 05/29/20 05:47 05/29/20 05:47 05/29/20 05:47 05/29/20 05:47 General appearance: Present: no acute distress HEART Score - HEART Score Troponin: Troponin T 0.027 ng/mL (0.00-0.029) 05/28/20 21:03 Results - Labs CBC & Chem 7: 05/29/20 07:17 05/29/20 07:17 Labs: Laboratory Last Values WBC 5.0 K/mm3 (4.5-11.0) 05/29/20 07:17 RBC 4.54 M/mm3 (3.65-5.03) 05/29/20 07:17 Hgb 13.1 gm/dl (11.8-15.2) 05/29/20 07:17 Hct 39.7 % (35.5-45.6) 05/29/20 07:17 MCV 87 fl (84-94) 05/29/20 07:17 MCH 29 pg (28-32) 05/29/20 07:17 MCHC 33 % (32-34) 05/29/20 07:17 RDW 15.4 % (13.2-15.2) H 05/29/20 07:17 Plt Count 169 K/mm3 (140-440) 05/29/20 07:17 Lymph % (Auto) 18.3 % (13.4-35.0) 05/28/20 19:03 [place] % (Auto) 8.9 % (0.0-7.3) H 05/28/20 19:03 Eos % (Auto) 1.9 % (0.0-4.3) 05/28/20 19:03 Baso % (Auto) 0.8 % (0.0-1.8) 05/28/20 19:03 Lymph # (Auto) 1.0 K/mm3 (1.2-5.4) L 05/28/20 19:03 [place] # (Auto) 0.5 K/mm3 (0.0-0.8) 05/28/20 19:03 Eos # (Auto) 0.1 K/mm3 (0.0-0.4) 05/28/20 19:03 Baso # (Auto) 0.0 K/mm3 (0.0-0.1) 05/28/20 19:03 Add Manual Diff Complete 05/29/20 07:17 Total Counted 100 05/29/20 07:17 Seg Neutrophils % Informatics Manager 05/29/20 07:17 Seg Neuts % (Manual) 91.0 % (40.0-70.0) H 05/29/20 07:17 Band Neutrophils % 0 % 05/29/20 07:17 Lymphocytes % (Manual) 9.0 % (13.4-35.0) L 05/29/20 07:17 Reactive Lymphs % (Man) 0 % 05/29/20 07:17 Monocytes % (Manual) 0 % (0.0-7.3) 05/29/20 07:17 Eosinophils % (Manual) 0 % (0.0-4.3) 05/29/20 07:17 Basophils % (Manual) 0 % (0.0-1.8) 05/29/20 07:17 Metamyelocytes % 0 % 05/29/20 07:17 Myelocytes % 0 % 05/29/20 07:17 Promyelocytes % 0 % 05/29/20 07:17 Blast Cells % 0 % 05/29/20 07:17 Nucleated RBC % Not Reportable 05/29/20 07:17 Seg Neutrophils # 4.0 K/mm3 (1.8-7.7) 05/28/20 19:03 Seg Neutrophils # Man 4.6 K/mm3 (1.8-7.7) 05/29/20 07:17 Band Neutrophils # 0.0 K/mm3 05/29/20 07:17 Lymphocytes # (Manual) 0.5 K/mm3 (1.2-5.4) L 05/29/20 07:17 Abs React Lymphs (Man) 0.0 K/mm3 05/29/20 07:17 Monocytes # (Manual) 0.0 K/mm3 (0.0-0.8) 05/29/20 07:17 Eosinophils # (Manual) 0.0 K/mm3 (0.0-0.4) 05/29/20 07:17 Basophils # (Manual) 0.0 K/mm3 (0.0-0.1) 05/29/20 07:17 Metamyelocytes # 0.0 K/mm3 05/29/20 07:17 Myelocytes # 0.0 K/mm3 05/29/20 07:17 Promyelocytes # 0.0 K/mm3 05/29/20 07:17 Blast Cells # 0.0 K/mm3 05/29/20 07:17 WBC Morphology Not Reportable 05/29/20 07:17 Hypersegmented Neuts Not Reportable 05/29/20 07:17 Hyposegmented Neuts Not Reportable 05/29/20 07:17 Hypogranular Neuts Not Reportable 05/29/20 07:17 Smudge Cells Not Reportable 05/29/20 07:17 Toxic Granulation Not Reportable 05/29/20 07:17 Toxic Vacuolation Not Reportable 05/29/20 07:17 Dohle Bodies Not Reportable 05/29/20 07:17 Pelger-Huet Anomaly Not Reportable 05/29/20 07:17 Conner Rods Not Reportable 05/29/20 07:17 Platelet Estimate Consistent w auto 05/29/20 07:17 Clumped Platelets Not Reportable 05/29/20 07:17 Plt Clumps, EDTA Not Reportable 05/29/20 07:17 Large Platelets Not Reportable 05/29/20 07:17 Giant Platelets Not Reportable 05/29/20 07:17 Platelet Satelliting Not Reportable 05/29/20 07:17 Plt Morphology Comment Not Reportable 05/29/20 07:17 RBC Morphology Normal 05/29/20 07:17 Dimorphic RBCs Not Reportable 05/29/20 07:17 Polychromasia Not Reportable 05/29/20 07:17 Hypochromasia Not Reportable 05/29/20 07:17 Poikilocytosis Not Reportable 05/29/20 07:17 Anisocytosis Not Reportable 05/29/20 07:17 Microcytosis Not Reportable 05/29/20 07:17 Macrocytosis Not Reportable 05/29/20 07:17 Spherocytes Not Reportable 05/29/20 07:17 Pappenheimer Bodies Not Reportable 05/29/20 07:17 Sickle Cells Not Reportable 05/29/20 07:17 Target Cells Not Reportable 05/29/20 07:17 Tear Drop Cells Not Reportable 05/29/20 07:17 Ovalocytes Not Reportable 05/29/20 07:17 Helmet Cells Not Reportable 05/29/20 07:17 [place]-Rew Bodies Not Reportable 05/29/20 07:17 [place] Rings Not Reportable 05/29/20 07:17 Reyes Cells Not Reportable 05/29/20 07:17 Bite Cells Not Reportable 05/29/20 07:17 Crenated Cell Not Reportable 05/29/20 07:17 Elliptocytes Not Reportable 05/29/20 07:17 Acanthocytes (Spur) Not Reportable 05/29/20 07:17 Rouleaux Not Reportable 05/29/20 07:17 Hemoglobin C Crystals Not Reportable 05/29/20 07:17 Schistocytes Not Reportable 05/29/20 07:17 Malaria parasites Not Reportable 05/29/20 07:17 Darell Bodies Not Reportable 05/29/20 07:17 Hem Pathologist Commnt No 05/29/20 07:17 PT 13.0 Sec. (12.2-14.9) 05/29/20 07:17 INR 0.99 (0.87-1.13) 05/29/20 07:17 Sodium 139 mmol/L (137-145) 05/29/20 07:17 Potassium 4.9 mmol/L (3.6-5.0) 05/29/20 07:17 Chloride 102.6 mmol/L (98-107) 05/29/20 07:17 Carbon Dioxide 25 mmol/L (22-30) 05/29/20 07:17 Anion Gap 16 mmol/L 05/29/20 07:17 BUN 13 mg/dL (9-20) 05/29/20 07:17 Creatinine 0.9 mg/dL (0.8-1.3) 05/29/20 07:17 Estimated GFR > 60 ml/min 05/29/20 07:17 BUN/Creatinine Ratio 14 % 05/29/20 07:17 Glucose 243 mg/dL (75-100) H 05/29/20 07:17 Calcium 9.1 mg/dL (8.4-10.2) 05/29/20 07:17 Total Bilirubin 0.30 mg/dL (0.1-1.2) 05/28/20 19:03 AST 41 units/L (5-40) H 05/28/20 19:03 ALT 49 units/L (7-56) 05/28/20 19:03 Alkaline Phosphatase 93 units/L (35-129) 05/28/20 19:03 Troponin T 0.027 ng/mL (0.00-0.029) 05/28/20 21:03 NT-Pro-B Natriuret Pep 2831 pg/mL (0-900) H 05/28/20 19:03 Total Protein 5.9 g/dL (6.3-8.2) L 05/28/20 19:03 Albumin 3.5 g/dL (3.9-5) L 05/28/20 19:03 Albumin/Globulin Ratio 1.5 % 05/28/20 19:03 [place]/IV: Voiding Method Urinal IV Catheter Type [Left INT / Saline Lock Antecubital] Active Medications - Current Medications Current Medications: Generic Name Dose Route Start Last Admin Trade Name Freq PRN Reason Stop Dose Admin Acetaminophen 650 mg 05/28/20 22:39 Tylenol PO Q4H PRN Pain MILD(1-3)/Fever >100.5/ZHANG Aspirin 81 mg 05/30/20 10:00 Baby Aspirin PO QDAY DIANA Benzonatate 100 mg 05/29/20 14:00 Tessalon Perles PO Q8HR DIANA Cyclobenzaprine HCl 10 mg 05/29/20 11:42 Flexeril PO TID PRN Muscle Spasm Diphenhydramine HCl 25 mg 05/29/20 01:27 05/29/20 01:55 Benadryl PO 25 mg QHS PRN Administration Sleep Furosemide 40 mg 05/29/20 06:00 05/29/20 05:55 Lasix IV 40 mg BID@0600,1800 DIANA Administration Heparin Sodium (Porcine) 5,000 unit 05/29/20 06:00 05/29/20 05:55 Heparin SUB-Q 5,000 unit Q8HR DIANA Administration Losartan Potassium 25 mg 05/30/20 10:00 Cozaar PO QDAY [facility] Magnesium Hydroxide 30 ml 05/28/20 22:39 Milk Of Magnesia PO Q4H PRN Constipation Metoprolol Succinate 50 mg 05/29/20 11:00 Metoprolol Xl PO QDAY [facility] Miscellaneous Medication 1 each 05/29/20 11:42 Oxycodone Hcl/Acetaminophen [Percocet 10/325 Mg] PO Q6HR PRN PAIN Ondansetron HCl 4 mg 05/28/20 22:39 Zofran IV Q8H PRN Nausea And Vomiting Sodium Chloride 10 ml 05/29/20 10:00 Sodium Chloride Flush Syringe 10 Ml IV BID [facility] Sodium Chloride 10 ml 05/28/20 22:39 Sodium Chloride Flush Syringe 10 Ml IV PRN PRN LINE FLUSH
[2020-05-29] MEDS ORDERED: oxyCODONE 5 MG TAB PO PRN (11:49)
[2020-05-29] MEDS ORDERED: FLU VACC QUAD 2020-2021 (6 months +)/PF 60 0.5 ML SYRINGE IM ONE (12:00)
[2020-05-29] MEDS: BENZONATATE 100 MG CAP PO SCH ×2 (13:06→21:39)
[2020-05-29] MEDS: oxyCODONE /ACETAMINOPHEN 5-325MG TAB PO PRN ×2 (17:28→23:57)
[2020-05-29] MEDS: oxyCODONE 5 MG TAB PO PRN ×2 (17:28→23:57)
[2020-05-30 07:05] LABS: BUN/Creatinine Ratio 20; Blood Urea Nitrogen 22 mg/dL (9-20); Chol/HDL Ratio 3.12 %; HDL Cholesterol 57 mg/dL (40-59); Hemolysis Index 3; LDL Cholesterol,Direct 121 mg/dL (50-130)
--- NOTE | 2020-05-30 08:04 | Progress Note ---
Assessment and Plan Assessment and plan: 59-year-old -[place] male with known history of hypertension presenting to the emergency room today complaining of shortness of breath, cough and lower extremity swelling which has been ongoing for about 2 weeks. Symptoms were said to have gotten worse over the past few days and decided to report to the emergency room. Cough has been nonproductive. He denies any chest pain, no fever or chills, no headache or dizziness, no nausea vomiting, no abdominal pain, no hematuria or dysuria. He denies any sick contacts and no recent travel, denies any contact with anyone with COVID-19. Patient has been having orthopnea and has had to prop himself up on pillows at home in order to feel comfortable. He has been wheezing occasionally. Per patient he recently lost 40 pounds. Diet and exercise but states that he feels this more due to his medical condition. On admission his chest x-ray showed cardiomegaly with mild pulmonary vascular congestion and a proBNP of 2831 Work-up in the emergency room today reveals elevated BNP, chest x-ray showed cardiomegaly with pulmonary vascular congestion, EKG shows sinus tachycardia. 05/30: Patient seen and examined, no acute event overnight. TTE reviewed - EF 25-30%, mod LVH, LA mod dilated, RV systolic function mildly reduced, RV mod dilated, RA mod dilated, mod MR, RVSP 48mmHg, trivial pericardial effusion, mod pleural effusion. Cardilology input noted with adjustments made to meds. Acute congestive heart failure presumed systolic Hypertension Elevated blood sugar Nausea and vomiting Medical noncompliance Chronic pain syndrome Weight loss of 40 pounds Plan Continue goal-directed medical therapy Cardiology input noted Outpatient GI evaluation for age-appropriate colonoscopy Continue home medication Check A1c to ensure no underlying diabetes mellitus DVT and GI prophylaxis History Interval history: Patient seen and examined, Still with some shortness of breath and leg swelling and chest congestion feeling Hospitalist Physical - Physical exam Narrative exam: VITAL SIGNS: Reviewed. Exam limited due to the global pandemic and effort to preserve PPE GENERAL: The patient appears normally developed, Vital signs as documented. HEAD: No signs of head trauma. EYES: Pupils are equal. Extraocular motions intact. EARS: Hearing grossly intact. MOUTH: Oropharynx is normal except for missing dentition. NECK: No adenopathy, no JVD. CHEST: Chest with diminished breath sounds bilaterally. No wheezes, rales, or rhonchi. CARDIAC: Regular rate and rhythm. S1 and S2, without murmurs, gallops, or rubs. VASCULAR: +2 edema. Peripheral pulses normal and equal in all extremities. ABDOMEN: Soft, non tender and non distended. No rebound or guarding, and no masses palpated. Bowel Sounds normal. MUSCULOSKELETAL: Good range of motion of all major joints. Extremities without clubbing, cyanosis. +2 pitting edema bilateral lower extremity. NEUROLOGIC EXAM: Alert and oriented x 3 No focal sensory or strength deficits. Speech normal. Follows commands. PSYCHIATRIC: Mood normal. SKIN: detail exam as documented in skin assessment - Constitutional Vitals: Temp Pulse Resp BP Pulse Ox 97.3 F L 90 18 121/86 100 05/30/20 05:10 05/30/20 05:10 05/30/20 05:10 05/30/20 05:10 05/30/20 05:10 General appearance: Present: no acute distress HEART Score - HEART Score Troponin: Troponin T 0.027 ng/mL (0.00-0.029) 05/28/20 21:03 Results - Labs CBC & Chem 7: 05/29/20 07:17 05/30/20 05:16 Labs: Laboratory Last Values WBC 5.0 K/mm3 (4.5-11.0) 05/29/20 07:17 RBC 4.54 M/mm3 (3.65-5.03) 05/29/20 07:17 Hgb 13.1 gm/dl (11.8-15.2) 05/29/20 07:17 Hct 39.7 % (35.5-45.6) 05/29/20 07:17 MCV 87 fl (84-94) 05/29/20 07:17 MCH 29 pg (28-32) 05/29/20 07:17 MCHC 33 % (32-34) 05/29/20 07:17 RDW 15.4 % (13.2-15.2) H 05/29/20 07:17 Plt Count 169 K/mm3 (140-440) 05/29/20 07:17 Lymph % (Auto) 18.3 % (13.4-35.0) 05/28/20 19:03 Swisher % (Auto) 8.9 % (0.0-7.3) H 05/28/20 19:03 Eos % (Auto) 1.9 % (0.0-4.3) 05/28/20 19:03 Baso % (Auto) 0.8 % (0.0-1.8) 05/28/20 19:03 Lymph # (Auto) 1.0 K/mm3 (1.2-5.4) L 05/28/20 19:03 Swisher # (Auto) 0.5 K/mm3 (0.0-0.8) 05/28/20 19:03 Eos # (Auto) 0.1 K/mm3 (0.0-0.4) 05/28/20 19:03 Baso # (Auto) 0.0 K/mm3 (0.0-0.1) 05/28/20 19:03 Add Manual Diff Complete 05/29/20 07:17 Total Counted 100 05/29/20 07:17 Seg Neutrophils % Licensed Reactor Operator 05/29/20 07:17 Seg Neuts % (Manual) 91.0 % (40.0-70.0) H 05/29/20 07:17 Band Neutrophils % 0 % 05/29/20 07:17 Lymphocytes % (Manual) 9.0 % (13.4-35.0) L 05/29/20 07:17 Reactive Lymphs % (Man) 0 % 05/29/20 07:17 Monocytes % (Manual) 0 % (0.0-7.3) 05/29/20 07:17 Eosinophils % (Manual) 0 % (0.0-4.3) 05/29/20 07:17 Basophils % (Manual) 0 % (0.0-1.8) 05/29/20 07:17 Metamyelocytes % 0 % 05/29/20 07:17 Myelocytes % 0 % 05/29/20 07:17 Promyelocytes % 0 % 05/29/20 07:17 Blast Cells % 0 % 05/29/20 07:17 Nucleated RBC % Not Reportable 05/29/20 07:17 Seg Neutrophils # 4.0 K/mm3 (1.8-7.7) 05/28/20 19:03 Seg Neutrophils # Man 4.6 K/mm3 (1.8-7.7) 05/29/20 07:17 Band Neutrophils # 0.0 K/mm3 05/29/20 07:17 Lymphocytes # (Manual) 0.5 K/mm3 (1.2-5.4) L 05/29/20 07:17 Abs React Lymphs (Man) 0.0 K/mm3 05/29/20 07:17 Monocytes # (Manual) 0.0 K/mm3 (0.0-0.8) 05/29/20 07:17 Eosinophils # (Manual) 0.0 K/mm3 (0.0-0.4) 05/29/20 07:17 Basophils # (Manual) 0.0 K/mm3 (0.0-0.1) 05/29/20 07:17 Metamyelocytes # 0.0 K/mm3 05/29/20 07:17 Myelocytes # 0.0 K/mm3 05/29/20 07:17 Promyelocytes # 0.0 K/mm3 05/29/20 07:17 Blast Cells # 0.0 K/mm3 05/29/20 07:17 WBC Morphology Not Reportable 05/29/20 07:17 Hypersegmented Neuts Not Reportable 05/29/20 07:17 Hyposegmented Neuts Not Reportable 05/29/20 07:17 Hypogranular Neuts Not Reportable 05/29/20 07:17 Smudge Cells Not Reportable 05/29/20 07:17 Toxic Granulation Not Reportable 05/29/20 07:17 Toxic Vacuolation Not Reportable 05/29/20 07:17 Dohle Bodies Not Reportable 05/29/20 07:17 Pelger-Huet Anomaly Not Reportable 05/29/20 07:17 Conner Rods Not Reportable 05/29/20 07:17 Platelet Estimate Consistent w auto 05/29/20 07:17 Clumped Platelets Not Reportable 05/29/20 07:17 Plt Clumps, EDTA Not Reportable 05/29/20 07:17 Large Platelets Not Reportable 05/29/20 07:17 Giant Platelets Not Reportable 05/29/20 07:17 Platelet Satelliting Not Reportable 05/29/20 07:17 Plt Morphology Comment Not Reportable 05/29/20 07:17 RBC Morphology Normal 05/29/20 07:17 Dimorphic RBCs Not Reportable 05/29/20 07:17 Polychromasia Not Reportable 05/29/20 07:17 Hypochromasia Not Reportable 05/29/20 07:17 Poikilocytosis Not Reportable 05/29/20 07:17 Anisocytosis Not Reportable 05/29/20 07:17 Microcytosis Not Reportable 05/29/20 07:17 Macrocytosis Not Reportable 05/29/20 07:17 Spherocytes Not Reportable 05/29/20 07:17 Pappenheimer Bodies Not Reportable 05/29/20 07:17 Sickle Cells Not Reportable 05/29/20 07:17 Target Cells Not Reportable 05/29/20 07:17 Tear Drop Cells Not Reportable 05/29/20 07:17 Ovalocytes Not Reportable 05/29/20 07:17 Helmet Cells Not Reportable 05/29/20 07:17 Anderson-Foot Of Ten Bodies Not Reportable 05/29/20 07:17 Spring Arbor Rings Not Reportable 05/29/20 07:17 Henderson Cells Not Reportable 05/29/20 07:17 Bite Cells Not Reportable 05/29/20 07:17 Crenated Cell Not Reportable 05/29/20 07:17 Elliptocytes Not Reportable 05/29/20 07:17 Acanthocytes (Spur) Not Reportable 05/29/20 07:17 Rouleaux Not Reportable 05/29/20 07:17 Hemoglobin C Crystals Not Reportable 05/29/20 07:17 Schistocytes Not Reportable 05/29/20 07:17 Malaria parasites Not Reportable 05/29/20 07:17 Darell Bodies Not Reportable 05/29/20 07:17 Hem Pathologist Commnt No 05/29/20 07:17 PT 13.0 Sec. (12.2-14.9) 05/29/20 07:17 INR 0.99 (0.87-1.13) 05/29/20 07:17 Sodium 139 mmol/L (137-145) 05/30/20 05:16 Potassium 4.6 mmol/L (3.6-5.0) 05/30/20 05:16 Chloride 102.1 mmol/L (98-107) 05/30/20 05:16 Carbon Dioxide 31 mmol/L (22-30) H 05/30/20 05:16 Anion Gap 11 mmol/L 05/30/20 05:16 BUN 22 mg/dL (9-20) H 05/30/20 05:16 Creatinine 1.1 mg/dL (0.8-1.3) 05/30/20 05:16 Estimated GFR > 60 ml/min 05/30/20 05:16 BUN/Creatinine Ratio 20 % 05/30/20 05:16 Glucose 114 mg/dL (75-100) H 05/30/20 05:16 Hemoglobin A1c 6.2 % (4-6) H 05/29/20 17:11 Calcium 9.0 mg/dL (8.4-10.2) 05/30/20 05:16 Total Bilirubin 0.30 mg/dL (0.1-1.2) 05/28/20 19:03 AST 41 units/L (5-40) H 05/28/20 19:03 ALT 49 units/L (7-56) 05/28/20 19:03 Alkaline Phosphatase 93 units/L (35-129) 05/28/20 19:03 Troponin T 0.027 ng/mL (0.00-0.029) 05/28/20 21:03 NT-Pro-B Natriuret Pep 2831 pg/mL (0-900) H 05/28/20 19:03 Total Protein 5.9 g/dL (6.3-8.2) L 05/28/20 19:03 Albumin 3.5 g/dL (3.9-5) L 05/28/20 19:03 Albumin/Globulin Ratio 1.5 % 05/28/20 19:03 Triglycerides 135 mg/dL (2-149) 05/30/20 05:16 Cholesterol 178 mg/dL (50-199) 05/30/20 05:16 LDL Cholesterol Direct 121 mg/dL (50-130) 05/30/20 05:16 HDL Cholesterol 57 mg/dL (40-59) 05/30/20 05:16 Cholesterol/HDL Ratio 3.12 % 05/30/20 05:16 - Diagnostic Impressions Diagnostic Impressions: Echocardiogram 05/28/20 22:40 Transthoracic Echocardiogram Indication: SOB BP: 145/93 HR: 107 Conclusions *The left ventricular chamber size is normal. *Moderate concentric left ventricular hypertrophy is observed. *Severe global hypokinesis of the left ventricle is observed. *The estimated ejection fraction is 25-30%. *The left ventricular diastolic filling pattern is consistent with elevated left ventricular end-diastolic pressure. *The left atrium is moderately dilated. *The right ventricular global systolic function is mildly reduced. *The right ventricle is moderately dilated. *The right atrium is moderately dilated. *There is moderate mitral regurgitation. *The right ventricular systolic pressure is calculated at 48 mmHg. *A trivial pericardial effusion is visualized. *There is a moderate pleural effusion. *There is less than 50% respiratory change in the inferior vena cava dimension. Findings Left Ventricle: The left ventricular chamber size is normal. Moderate concentric left ventricular hypertrophy is observed. Severe global hypokinesis of the left ventricle is observed. Global left ventricular systolic function is severely decreased. The estimated ejection fraction is 25-30%. The left ventricular diastolic filling pattern is consistent with elevated left ventricular end-diastolic pressure. Left Atrium: The left atrium is moderately dilated. Right Ventricle: The right ventricle is moderately dilated. The right ventricular global systolic function is mildly reduced. Right Atrium: The right atrium is moderately dilated. Aortic Valve: The aortic valve leaflets are mildly thickened. There is no evidence of aortic regurgitation. Mitral Valve: The mitral valve leaflets are mildly thickened. There is moderate mitral regurgitation. Tricuspid Valve: The tricuspid valve leaflets are normal. There is moderate to severe tricuspid regurgitation. The right ventricular systolic pressure is calculated at 48 mmHg. Pulmonic Valve: The pulmonic valve appears normal. There is trace pulmonic regurgitation. Pericardium: A trivial pericardial effusion is visualized. There is a moderate pleural effusion. Venous: The inferior vena cava is dilated. There is less than 50% respiratory change in the inferior vena cava dimension. Measurements Chambers 2D Name Value Normal Range IVSd (2D) 1.41 cm (0.6 - 1.1) LVPWd (2D) 1.4 cm (0.6 - 1.1) LVIDd (2D) 5.35 cm (3.7 - 5.6) LVIDs (2D) 4.85 cm (2 - 3.8) LV FS (2D) 9.19 % - EF Teichholz (2D) 20.05 % - Ao root diameter (2D) 3.01 cm (2 - 3.7) Volumes/Mass Name Value Normal Range LA ESV SP 4CH (A/L) 95.41 ml - LA ESV SP 2CH (A/L) 98.82 ml - LA ESV BP (A/L) 102.49 ml - LA ESV BP (A/L) index 48.81 ml/m2 - LA ESV SP 4CH (MOD) 86.52 ml - LA ESV SP 2CH (MOD) 92.96 ml - LA ESV BP (MOD) 94.59 ml - LA ESV BP (MOD) index 45.04 ml/m2 - Diastolic/Systolic Function Name Value Normal Range MV E-wave Vmax 0.82 m/sec - MV deceleration time 177.9 msec - Aortic Valve Name Value Normal Range AV Vmax 1.02 m/sec - AV VTI 15.89 cm - AV peak gradient 4.18 mmHg - AV mean gradient 2.45 mmHg - LVOT diameter 2.09 cm - LVOT Vmax 0.78 m/sec - LVOT VTI 13.02 cm - LVOT peak gradient 2.41 mmHg - LVOT mean gradient 1.44 mmHg - SV LVOT 44.71 ml - MERLIN (continuity Vmax) 2.61 cm2 - MERLIN (continuity VTI) 2.81 cm2 - Mitral Valve Name Value Normal Range MR volume (PISA) 22.29 ml - MR flow (PISA) 83.41 ml/sec - MR ERO 0.15 cm2 - MR PISA radius 0.74 cm - MR alias Vmax 24.57 cm/sec - Tricuspid Valve Name Value Normal Range TR Vmax 2.91 m/sec - TR peak gradient 33 mmHg - RAP 15 mmHg - RVSP 48 mmHg - IVC diameter 2.45 cm (1.2 - 2.3) Pulmonic Valve/Qp:Qs Name Value Normal Range PV Vmax 0.53 m/sec - PV peak gradient 1.14 mmHg - NH end-diastolic Vmax 1.17 m/sec - PV acceleration time 68.51 msec - Hancock/IV: Voiding Method Toilet IV Catheter Type [Left INT / Saline Lock Antecubital] Active Medications - Current Medications Current Medications: Generic Name Dose Route Start Last Admin Trade Name Freq PRN Reason Stop Dose Admin Acetaminophen 650 mg 05/28/20 22:39 Tylenol PO Q4H PRN Pain MILD(1-3)/Fever >100.5/ZHANG Aspirin 81 mg 05/30/20 10:00 Baby Aspirin PO QDAY DIANA Benzonatate 100 mg 05/29/20 14:00 05/29/20 21:39 Tessalon Perles PO 100 mg Q8HR DIANA Administration Cyclobenzaprine HCl 10 mg 05/29/20 11:42 Flexeril PO TID PRN Muscle Spasm Diphenhydramine HCl 25 mg 05/29/20 01:27 05/29/20 01:55 Benadryl PO 25 mg QHS PRN Administration Sleep Furosemide 40 mg 05/29/20 06:00 05/29/20 17:21 Lasix IV 40 mg BID@0600,1800 DIANA Administration Heparin Sodium (Porcine) 5,000 unit 05/29/20 06:00 05/29/20 21:39 Heparin SUB-Q 5,000 unit Q8HR DIANA Administration Losartan Potassium 25 mg 05/30/20 10:00 Cozaar PO QDAY DIANA Magnesium Hydroxide 30 ml 05/28/20 22:39 Milk Of Magnesia PO Q4H PRN Constipation Metoprolol Succinate 50 mg 05/29/20 11:00 05/29/20 11:43 Metoprolol Xl PO 50 mg QDAY DIANA Administration Ondansetron HCl 4 mg 05/28/20 22:39 Zofran IV Q8H PRN Nausea And Vomiting Oxycodone HCl 10 mg 05/29/20 12:37 05/29/20 23:57 Roxicodone PO 10 mg Q6H PRN Administration Pain, Moderate (4-6) Oxycodone/Acetaminophen 1 tab 05/29/20 11:49 05/29/20 23:57 Percocet 5/325 PO 1 tab Q6H PRN Administration Pain, Moderate (4-6) Sodium Chloride 10 ml 05/29/20 10:00 05/29/20 21:39 Sodium Chloride Flush Syringe 10 Ml IV 10 ml BID DIANA Administration Sodium Chloride 10 ml 05/28/20 22:39 Sodium Chloride Flush Syringe 10 Ml IV PRN PRN LINE FLUSH Nutrition/Malnutrition Assess - Dietary Evaluation Nutrition/Malnutrition Findings: Nutrition Notes Start: 05/29/20 12:58 Freq: Status: Active Protocol: Document 05/29/20 12:59 AT (Rec: 05/29/20 13:13 AT [id number]) Co-Sign 05/29/20 12:59 MK Nutrition Notes 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 Spoke with pt over the phone. He is eating 100% of meals. Pt reports intentional weight loss of 9 kg 4 months ago and unintentional weight loss of 3 % in two months (non- significant). Pt followed a low-sodium diet prior to hospital admission. Food preferences were recorded. Current % PO Good (75-100%) Nutrition Intervention Revisit per MD consult or patient Sign Off request:
[2020-05-30] MEDS: ASPIRIN 81 MG TAB CHEW PO SCH (10:02)
[2020-05-30] MEDS: LOSARTAN 25 MG TAB PO SCH (10:02)
[2020-05-30] MEDS: METOPROLOL SUCCINATE XL 50 MG TAB PO SCH (10:03)
[2020-05-30] MEDS: ONDANSETRON 4 MG/2 ML INJ IV PRN ×2 (10:03→21:42)
--- NOTE | 2020-05-30 10:48 | Progress Note ---
Assessment and Plan tte reviewed - EF 25-30%, mod LVH, LA mod dilated, RV systolic function mildly reduced, RV mod dilated, RA mod dilated, mod MR, RVSP 48mmHg, trivial pericardial effusion, mod pleural effusion. Pt appears to be clinically improving, however, states UOP was diminished overnight. Covert IV lasix to IV bumex. Cont toprol XL and losartan. Plan for lexiscan MPI stress test in AM to evaluate for ICMP. NPO after MN. The patient has been seen in conjunction with Dr. Larsen who agrees with the assessment and plan of care. - Patient Problems (1) Acute HFrEF (heart failure with reduced ejection fraction) Current Visit: Yes Status: Acute (2) Cardiomyopathy Current Visit: Yes Status: Chronic (3) Uncontrolled hypertension Current Visit: Yes Status: Acute Subjective Date of service: 05/30/20 Principal diagnosis: HF Interval history: pt sitting up at bedside, BLE edema gradually improving, SOB improving. tele reviewed - in SR HR 90s. Objective Last Vital Signs Temp 97.3 F L 05/30/20 05:10 Pulse 90 05/30/20 05:10 Resp 18 05/30/20 05:10 BP 121/86 05/30/20 10:03 Pulse Ox 100 05/30/20 05:10 - Physical Examination General: No Apparent Distress HEENT: Positive: PERRL, Normocephaly, Mucus Membranes Moist Neck: Positive: neck supple, trachea midline Cardiac: Positive: Reg Rate and Rhythm, S1/S2 Lungs: Positive: Decreased Breath Sounds Neuro: Positive: Grossly Intact Abdomen: Negative: Tender Skin: Negative: Rash Musculoskeletal: No Pain Extremities: Present: +2 Edema (BLE) - Labs and Meds Lipids 05/30/20 Range/Units 05:16 Triglycerides 135 (2-149) mg/dL Cholesterol 178 (50-199) mg/dL HDL Cholesterol 57 (40-59) mg/dL Cholesterol/HDL Ratio 3.12 % Comprehensive Metabolic Panel 05/30/20 Range/Units 05:16 Sodium 139 (137-145) mmol/L Potassium 4.6 (3.6-5.0) mmol/L Chloride 102.1 (98-107) mmol/L Carbon Dioxide 31 H (22-30) mmol/L BUN 22 H (9-20) mg/dL Creatinine 1.1 (0.8-1.3) mg/dL Glucose 114 H (75-100) mg/dL Calcium 9.0 (8.4-10.2) mg/dL - Imaging and Cardiology EKG: report reviewed, image reviewed Echo: pending - EKG Sinus rhythms and dysrhythmias: sinus rhythm
[2020-05-30] MEDS: BENZONATATE 100 MG CAP PO SCH ×3 (13:17→21:42)
[2020-05-30] MEDS: HEPARIN 5,000 UNIT/1 ML VIAL SUB-Q SCH ×3 (13:17→21:42)
[2020-05-30] MEDS: FUROSEMIDE 40 MG/4 ML INJ IV SCH (13:19)
[2020-05-30] MEDS: BUMETANIDE 1 MG/4 ML INJ IV SCH ×2 (13:46→17:02)
[2020-05-30] MEDS: oxyCODONE /ACETAMINOPHEN 5-325MG TAB PO PRN (20:15)
[2020-05-30] MEDS: oxyCODONE 5 MG TAB PO PRN (20:16)
[2020-05-31 06:09] LABS: BUN/Creatinine Ratio 18; Blood Urea Nitrogen 23 mg/dL (9-20); Calcium 8.7 mg/dL (8.4-10.2); Hemolysis Index 14
[2020-05-31] MEDS: BUMETANIDE 1 MG/4 ML INJ IV SCH ×2 (06:22→17:54)
[2020-05-31] MEDS: HEPARIN 5,000 UNIT/1 ML VIAL SUB-Q SCH ×3 (06:23→21:02)
[2020-05-31] MEDS: BENZONATATE 100 MG CAP PO SCH ×3 (06:23→21:02)
[2020-05-31] MEDS ORDERED: REGADENOSON 0.4 MG/5 ML INJ IV ONE ×2 (07:13→10:04)
--- NOTE | 2020-05-31 10:22 | Progress Note ---
Assessment and Plan S/p lexiscan MPI stress test today which was negative for ischemia. Cont toprol XL, losartan, IV bumex. Anticipate d/c within next 24-48Hr. The patient has been seen in conjunction with Dr. Larsen who agrees with the assessment and plan of care. - Patient Problems (1) Acute HFrEF (heart failure with reduced ejection fraction) Current Visit: Yes Status: Acute (2) Cardiomyopathy Current Visit: Yes Status: Chronic (3) Uncontrolled hypertension Current Visit: Yes Status: Acute Subjective Date of service: 05/31/20 Principal diagnosis: HF Interval history: pt for stress test today, BLE edema improving. SOB improving. tele reviewed - in SR HR 80s - 90s. Objective Last Vital Signs Temp 98.1 F 05/31/20 03:42 Pulse 88 05/31/20 03:42 Resp 16 05/31/20 03:42 BP 126/92 05/30/20 21:03 Pulse Ox 100 05/31/20 03:42 - Physical Examination General: No Apparent Distress HEENT: Positive: PERRL, Normocephaly, Mucus Membranes Moist Neck: Positive: neck supple, trachea midline Cardiac: Positive: Reg Rate and Rhythm, S1/S2 Lungs: Positive: Decreased Breath Sounds Neuro: Positive: Grossly Intact Abdomen: Negative: Tender Skin: Negative: Rash Musculoskeletal: No Pain Extremities: Present: +2 Edema (BLE) - Labs and Meds Comprehensive Metabolic Panel 05/31/20 Range/Units 04:34 Sodium 139 (137-145) mmol/L Potassium 4.7 (3.6-5.0) mmol/L Chloride 101.4 (98-107) mmol/L Carbon Dioxide 33 H (22-30) mmol/L BUN 23 H (9-20) mg/dL Creatinine 1.3 (0.8-1.3) mg/dL Glucose 84 (75-100) mg/dL Calcium 8.7 (8.4-10.2) mg/dL - Imaging and Cardiology EKG: report reviewed, image reviewed Echo: report reviewed (EF 25-30%, mod LVH, LA mod dilated, RV systolic function mildly reduced, RV mod dilated, RA mod dilated, mod MR, RVSP 48mmHg, trivial pericardial effusion, mod pleural effusion.) - Telemetry EKG Rhythm: Sinus Rhythm - EKG Sinus rhythms and dysrhythmias: sinus rhythm
--- NOTE | 2020-05-31 10:50 | Progress Note ---
Assessment and Plan Assessment and plan: 59-year-old -Citizen Of [place] male with known history of hypertension presenting to the emergency room today complaining of shortness of breath, cough and lower extremity swelling which has been ongoing for about 2 weeks. Symptoms were said to have gotten worse over the past few days and decided to report to the emergency room. Cough has been nonproductive. He denies any chest pain, no fever or chills, no headache or dizziness, no nausea vomiting, no abdominal pain, no hematuria or dysuria. He denies any sick contacts and no recent travel, denies any contact with anyone with COVID-19. Patient has been having orthopnea and has had to prop himself up on pillows at home in order to feel comfortable. He has been wheezing occasionally. Per patient he recently lost 40 pounds. Diet and exercise but states that he feels this more due to his medical condition. On admission his chest x-ray showed cardiomegaly with mild pulmonary vascular congestion and a proBNP of 2831 Work-up in the emergency room today reveals elevated BNP, chest x-ray showed cardiomegaly with pulmonary vascular congestion, EKG shows sinus tachycardia. 05/30: Patient seen and examined, no acute event overnight. TTE reviewed - EF 25-30%, mod LVH, LA mod dilated, RV systolic function mildly reduced, RV mod dilated, RA mod dilated, mod MR, RVSP 48mmHg, trivial pericardial effusion, mod pleural effusion. Cardilology input noted with adjustments made to meds. 05/31: Patient for stress test today, clinically is improving. Discussed with cardiology 1-2 more days of diuretic to better optimize patient prior to dischar ge. Stress test was negative. Start on Megace for appetite stimulant. Acute congestive heart failure presumed systolic Hypertension Elevated blood sugar Nausea and vomiting Medical noncompliance Chronic pain syndrome Weight loss of 40 pounds Plan Continue goal-directed medical therapy Cardiology input noted Outpatient GI evaluation for age-appropriate colonoscopy Continue home medication Check A1c to ensure no underlying diabetes mellitus DVT and GI prophylaxis History Interval history: Patient seen and examined, standing walking around reports significant improvement heart stress test today. Still complains of low appetite. Reinforced with the patient the need to follow-up with GI outpatient Hospitalist Physical - Physical exam Narrative exam: VITAL SIGNS: Reviewed. Exam limited due to the global pandemic and effort to preserve PPE GENERAL: The patient appears normally developed, Vital signs as documented. HEAD: No signs of head trauma. EYES: Pupils are equal. Extraocular motions intact. EARS: Hearing grossly intact. MOUTH: Oropharynx is normal except for missing dentition. NECK: No adenopathy, no JVD. CHEST: Chest with diminished breath sounds bilaterally. No wheezes, rales, or rhonchi. CARDIAC: Regular rate and rhythm. S1 and S2, without murmurs, gallops, or rubs. VASCULAR: +1 edema. Peripheral pulses normal and equal in all extremities. ABDOMEN: Soft, non tender and non distended. No rebound or guarding, and no masses palpated. Bowel Sounds normal. MUSCULOSKELETAL: Good range of motion of all major joints. Extremities without clubbing, cyanosis. +1 pitting edema bilateral lower extremity. NEUROLOGIC EXAM: Alert and oriented x 3 No focal sensory or strength deficits. Speech normal. Follows commands. PSYCHIATRIC: Mood normal. SKIN: detail exam as documented in skin assessment - Constitutional Vitals: Temp Pulse Resp BP Pulse Ox 98.1 F 88 16 126/92 100 05/31/20 03:42 05/31/20 03:42 05/31/20 03:42 05/30/20 21:03 05/31/20 03:42 General appearance: Present: no acute distress HEART Score - HEART Score Troponin: Troponin T 0.027 ng/mL (0.00-0.029) 05/28/20 21:03 Results - Labs CBC & Chem 7: 05/29/20 07:17 05/31/20 04:34 Labs: Laboratory Last Values WBC 5.0 K/mm3 (4.5-11.0) 05/29/20 07:17 RBC 4.54 M/mm3 (3.65-5.03) 05/29/20 07:17 Hgb 13.1 gm/dl (11.8-15.2) 05/29/20 07:17 Hct 39.7 % (35.5-45.6) 05/29/20 07:17 MCV 87 fl (84-94) 05/29/20 07:17 MCH 29 pg (28-32) 05/29/20 07:17 MCHC 33 % (32-34) 05/29/20 07:17 RDW 15.4 % (13.2-15.2) H 05/29/20 07:17 Plt Count 169 K/mm3 (140-440) 05/29/20 07:17 Lymph % (Auto) 18.3 % (13.4-35.0) 05/28/20 19:03 [place] % (Auto) 8.9 % (0.0-7.3) H 05/28/20 19:03 Eos % (Auto) 1.9 % (0.0-4.3) 05/28/20 19:03 Baso % (Auto) 0.8 % (0.0-1.8) 05/28/20 19:03 Lymph # (Auto) 1.0 K/mm3 (1.2-5.4) L 05/28/20 19:03 [place] # (Auto) 0.5 K/mm3 (0.0-0.8) 05/28/20 19:03 Eos # (Auto) 0.1 K/mm3 (0.0-0.4) 05/28/20 19:03 Baso # (Auto) 0.0 K/mm3 (0.0-0.1) 05/28/20 19:03 Add Manual Diff Complete 05/29/20 07:17 Total Counted 100 05/29/20 07:17 Seg Neutrophils % Vp [employer] 05/29/20 07:17 Seg Neuts % (Manual) 91.0 % (40.0-70.0) H 05/29/20 07:17 Band Neutrophils % 0 % 05/29/20 07:17 Lymphocytes % (Manual) 9.0 % (13.4-35.0) L 05/29/20 07:17 Reactive Lymphs % (Man) 0 % 05/29/20 07:17 Monocytes % (Manual) 0 % (0.0-7.3) 05/29/20 07:17 Eosinophils % (Manual) 0 % (0.0-4.3) 05/29/20 07:17 Basophils % (Manual) 0 % (0.0-1.8) 05/29/20 07:17 Metamyelocytes % 0 % 05/29/20 07:17 Myelocytes % 0 % 05/29/20 07:17 Promyelocytes % 0 % 05/29/20 07:17 Blast Cells % 0 % 05/29/20 07:17 Nucleated RBC % Not Reportable 05/29/20 07:17 Seg Neutrophils # 4.0 K/mm3 (1.8-7.7) 05/28/20 19:03 Seg Neutrophils # Man 4.6 K/mm3 (1.8-7.7) 05/29/20 07:17 Band Neutrophils # 0.0 K/mm3 05/29/20 07:17 Lymphocytes # (Manual) 0.5 K/mm3 (1.2-5.4) L 05/29/20 07:17 Abs React Lymphs (Man) 0.0 K/mm3 05/29/20 07:17 Monocytes # (Manual) 0.0 K/mm3 (0.0-0.8) 05/29/20 07:17 Eosinophils # (Manual) 0.0 K/mm3 (0.0-0.4) 05/29/20 07:17 Basophils # (Manual) 0.0 K/mm3 (0.0-0.1) 05/29/20 07:17 Metamyelocytes # 0.0 K/mm3 05/29/20 07:17 Myelocytes # 0.0 K/mm3 05/29/20 07:17 Promyelocytes # 0.0 K/mm3 05/29/20 07:17 Blast Cells # 0.0 K/mm3 05/29/20 07:17 WBC Morphology Not Reportable 05/29/20 07:17 Hypersegmented Neuts Not Reportable 05/29/20 07:17 Hyposegmented Neuts Not Reportable 05/29/20 07:17 Hypogranular Neuts Not Reportable 05/29/20 07:17 Smudge Cells Not Reportable 05/29/20 07:17 Toxic Granulation Not Reportable 05/29/20 07:17 Toxic Vacuolation Not Reportable 05/29/20 07:17 Dohle Bodies Not Reportable 05/29/20 07:17 Pelger-Huet Anomaly Not Reportable 05/29/20 07:17 Conner Rods Not Reportable 05/29/20 07:17 Platelet Estimate Consistent w auto 05/29/20 07:17 Clumped Platelets Not Reportable 05/29/20 07:17 Plt Clumps, EDTA Not Reportable 05/29/20 07:17 Large Platelets Not Reportable 05/29/20 07:17 Giant Platelets Not Reportable 05/29/20 07:17 Platelet Satelliting Not Reportable 05/29/20 07:17 Plt Morphology Comment Not Reportable 05/29/20 07:17 RBC Morphology Normal 05/29/20 07:17 Dimorphic RBCs Not Reportable 05/29/20 07:17 Polychromasia Not Reportable 05/29/20 07:17 Hypochromasia Not Reportable 05/29/20 07:17 Poikilocytosis Not Reportable 05/29/20 07:17 Anisocytosis Not Reportable 05/29/20 07:17 Microcytosis Not Reportable 05/29/20 07:17 Macrocytosis Not Reportable 05/29/20 07:17 Spherocytes Not Reportable 05/29/20 07:17 Pappenheimer Bodies Not Reportable 05/29/20 07:17 Sickle Cells Not Reportable 05/29/20 07:17 Target Cells Not Reportable 05/29/20 07:17 Tear Drop Cells Not Reportable 05/29/20 07:17 Ovalocytes Not Reportable 05/29/20 07:17 Helmet Cells Not Reportable 05/29/20 07:17 [place]-Clarks Bodies Not Reportable 05/29/20 07:17 [place] Rings Not Reportable 05/29/20 07:17 [place] Cells Not Reportable 05/29/20 07:17 Bite Cells Not Reportable 05/29/20 07:17 Crenated Cell Not Reportable 05/29/20 07:17 Elliptocytes Not Reportable 05/29/20 07:17 Acanthocytes (Spur) Not Reportable 05/29/20 07:17 Rouleaux Not Reportable 05/29/20 07:17 Hemoglobin C Crystals Not Reportable 05/29/20 07:17 Schistocytes Not Reportable 05/29/20 07:17 Malaria parasites Not Reportable 05/29/20 07:17 Darell Bodies Not Reportable 05/29/20 07:17 Hem Pathologist Commnt No 05/29/20 07:17 PT 13.0 Sec. (12.2-14.9) 05/29/20 07:17 INR 0.99 (0.87-1.13) 05/29/20 07:17 Sodium 139 mmol/L (137-145) 05/31/20 04:34 Potassium 4.7 mmol/L (3.6-5.0) 05/31/20 04:34 Chloride 101.4 mmol/L (98-107) 05/31/20 04:34 Carbon Dioxide 33 mmol/L (22-30) H 05/31/20 04:34 Anion Gap 9 mmol/L 05/31/20 04:34 BUN 23 mg/dL (9-20) H 05/31/20 04:34 Creatinine 1.3 mg/dL (0.8-1.3) 05/31/20 04:34 Estimated GFR > 60 ml/min 05/31/20 04:34 BUN/Creatinine Ratio 18 % 05/31/20 04:34 Glucose 84 mg/dL (75-100) 05/31/20 04:34 Hemoglobin A1c 6.2 % (4-6) H 05/29/20 17:11 Calcium 8.7 mg/dL (8.4-10.2) 05/31/20 04:34 Total Bilirubin 0.30 mg/dL (0.1-1.2) 05/28/20 19:03 AST 41 units/L (5-40) H 05/28/20 19:03 ALT 49 units/L (7-56) 05/28/20 19:03 Alkaline Phosphatase 93 units/L (35-129) 05/28/20 19:03 Troponin T 0.027 ng/mL (0.00-0.029) 05/28/20 21:03 NT-Pro-B Natriuret Pep 2831 pg/mL (0-900) H 05/28/20 19:03 Total Protein 5.9 g/dL (6.3-8.2) L 05/28/20 19:03 Albumin 3.5 g/dL (3.9-5) L 05/28/20 19:03 Albumin/Globulin Ratio 1.5 % 05/28/20 19:03 Triglycerides 135 mg/dL (2-149) 05/30/20 05:16 Cholesterol 178 mg/dL (50-199) 05/30/20 05:16 LDL Cholesterol Direct 121 mg/dL (50-130) 05/30/20 05:16 HDL Cholesterol 57 mg/dL (40-59) 05/30/20 05:16 Cholesterol/HDL Ratio 3.12 % 05/30/20 05:16 - Diagnostic Impressions Diagnostic Impressions: Echocardiogram 12/08/20 22:40 Transthoracic Echocardiogram Indication: SOB BP: 145/93 HR: 107 Conclusions *The left ventricular chamber size is normal. *Moderate concentric left ventricular hypertrophy is observed. *Severe global hypokinesis of the left ventricle is observed. *The estimated ejection fraction is 25-30%. *The left ventricular diastolic filling pattern is consistent with elevated left ventricular end-diastolic pressure. *The left atrium is moderately dilated. *The right ventricular global systolic function is mildly reduced. *The right ventricle is moderately dilated. *The right atrium is moderately dilated. *There is moderate mitral regurgitation. *The right ventricular systolic pressure is calculated at 48 mmHg. *A trivial pericardial effusion is visualized. *There is a moderate pleural effusion. *There is less than 50% respiratory change in the inferior vena cava dimension. Findings Left Ventricle: The left ventricular chamber size is normal. Moderate concentric left ventricular hypertrophy is observed. Severe global hypokinesis of the left ventricle is observed. Global left ventricular systolic function is severely decreased. The estimated ejection fraction is 25-30%. The left ventricular diastolic filling pattern is consistent with elevated left ventricular end-diastolic pressure. Left Atrium: The left atrium is moderately dilated. Right Ventricle: The right ventricle is moderately dilated. The right ventricular global systolic function is mildly reduced. Right Atrium: The right atrium is moderately dilated. Aortic Valve: The aortic valve leaflets are mildly thickened. There is no evidence of aortic regurgitation. Mitral Valve: The mitral valve leaflets are mildly thickened. There is moderate mitral regurgitation. Tricuspid Valve: The tricuspid valve leaflets are normal. There is moderate to severe tricuspid regurgitation. The right ventricular systolic pressure is calculated at 48 mmHg. Pulmonic Valve: The pulmonic valve appears normal. There is trace pulmonic regurgitation. Pericardium: A trivial pericardial effusion is visualized. There is a moderate pleural effusion. Venous: The inferior vena cava is dilated. There is less than 50% respiratory change in the inferior vena cava dimension. Measurements Chambers 2D Name Value Normal Range IVSd (2D) 1.41 cm (0.6 - 1.1) LVPWd (2D) 1.4 cm (0.6 - 1.1) LVIDd (2D) 5.35 cm (3.7 - 5.6) LVIDs (2D) 4.85 cm (2 - 3.8) LV FS (2D) 9.19 % - EF Teichholz (2D) 20.05 % - Ao root diameter (2D) 3.01 cm (2 - 3.7) Volumes/Mass Name Value Normal Range LA ESV SP 4CH (A/L) 95.41 ml - LA ESV SP 2CH (A/L) 98.82 ml - LA ESV BP (A/L) 102.49 ml - LA ESV BP (A/L) index 48.81 ml/m2 - LA ESV SP 4CH (MOD) 86.52 ml - LA ESV SP 2CH (MOD) 92.96 ml - LA ESV BP (MOD) 94.59 ml - LA ESV BP (MOD) index 45.04 ml/m2 - Diastolic/Systolic Function Name Value Normal Range MV E-wave Vmax 0.82 m/sec - MV deceleration time 177.9 msec - Aortic Valve Name Value Normal Range AV Vmax 1.02 m/sec - AV VTI 15.89 cm - AV peak gradient 4.18 mmHg - AV mean gradient 2.45 mmHg - LVOT diameter 2.09 cm - LVOT Vmax 0.78 m/sec - LVOT VTI 13.02 cm - LVOT peak gradient 2.41 mmHg - LVOT mean gradient 1.44 mmHg - SV LVOT 44.71 ml - MERLIN (continuity Vmax) 2.61 cm2 - MERLIN (continuity VTI) 2.81 cm2 - Mitral Valve Name Value Normal Range MR volume (PISA) 22.29 ml - MR flow (PISA) 83.41 ml/sec - MR ERO 0.15 cm2 - MR PISA radius 0.74 cm - MR alias Vmax 24.57 cm/sec - Tricuspid Valve Name Value Normal Range TR Vmax 2.91 m/sec - TR peak gradient 33 mmHg - RAP 15 mmHg - RVSP 48 mmHg - IVC diameter 2.45 cm (1.2 - 2.3) Pulmonic Valve/Qp:Qs Name Value Normal Range PV Vmax 0.53 m/sec - PV peak gradient 1.14 mmHg - MN end-diastolic Vmax 1.17 m/sec - PV acceleration time 68.51 msec - [place]/IV: Voiding Method Toilet IV Catheter Type [Left INT / Saline Lock Antecubital] Active Medications - Current Medications Current Medications: Generic Name Dose Route Start Last Admin Trade Name Freq PRN Reason Stop Dose Admin Acetaminophen 650 mg 05/28/20 22:39 Tylenol PO Q4H PRN Pain MILD(1-3)/Fever >100.5/ZHANG Aspirin 81 mg 05/30/20 10:00 05/30/20 10:02 Baby Aspirin PO 81 mg QDAY DIANA Administration Benzonatate 100 mg 05/29/20 14:00 05/31/20 06:23 Tessalon Perles PO 100 mg Q8HR DIANA Administration Bumetanide 1 mg 05/30/20 11:30 05/31/20 06:22 Bumetanide 1 Mg/4 Ml Inj IV 1 mg BID@0600,1800 DIANA Administration Cyclobenzaprine HCl 10 mg 05/29/20 11:42 Flexeril PO TID PRN Muscle Spasm Diphenhydramine HCl 25 mg 05/29/20 01:27 05/29/20 01:55 Benadryl PO 25 mg QHS PRN Administration Sleep Heparin Sodium (Porcine) 5,000 unit 05/29/20 06:00 05/31/20 06:23 Heparin SUB-Q 5,000 unit Q8HR DIANA Administration Losartan Potassium 25 mg 05/30/20 10:00 05/30/20 10:02 Cozaar PO 25 mg QDAY [facility] Administration Magnesium Hydroxide 30 ml 05/28/20 22:39 Milk Of Magnesia PO Q4H PRN Constipation Metoprolol Succinate 50 mg 05/29/20 11:00 05/30/20 10:03 Metoprolol Xl PO 50 mg QDAY DIANA Administration Ondansetron HCl 4 mg 05/28/20 22:39 05/30/20 21:42 Zofran IV 4 mg Q8H PRN Administration Nausea And Vomiting Oxycodone HCl 10 mg 05/29/20 12:37 05/30/20 20:16 Roxicodone PO 10 mg Q6H PRN Administration Pain, Moderate (4-6) Oxycodone/Acetaminophen 1 tab 05/29/20 11:49 05/30/20 20:15 Percocet 5/325 PO 1 tab Q6H PRN Administration Pain, Moderate (4-6) Sodium Chloride 10 ml 05/29/20 10:00 05/30/20 21:43 Sodium Chloride Flush Syringe 10 Ml IV 10 ml BID DIANA Administration Sodium Chloride 10 ml 05/28/20 22:39 Sodium Chloride Flush Syringe 10 Ml IV PRN PRN LINE FLUSH Nutrition/Malnutrition Assess - Dietary Evaluation Nutrition/Malnutrition Findings: Nutrition Notes Start: 05/29/20 12:58 Freq: Status: Active Protocol: Document 05/30/20 14:23 CW (Rec: 05/30/20 14:45 CW [email or web address]) Co-Sign 05/30/20 14:23 MK Nutrition Notes Need for Assessment generated from: MD Order,Education Initial or Follow up Assessment Current Diagnosis Hypertension,Heart Failure Other Pertinent Diagnosis Edema, fluid restriction Current Diet Cardiac Labs/Tests BG 114 Pertinent Medications 05/30 Zofran Height 5 ft 11 in Weight 86.9 kg Usual Body Weight 97.5 kg [place] Body Weight (kg) 78.18 BMI 26.7 Intake Prior to Admission Fair Weight change and time frame 11% wt loss in 3-4 months Weight Status Overweight Subjective/Other Information MD consult for diet education. Pt states prior poor intake of only soups, juices, ONS. Pt reports UBW of 215lb and unintentional wt loss over the past 3-4 months. Pt reports difficulty swallowing solids. Pt request Ensure and preferences recorded. Pt was educated on fluid restriction, low sodium, heart health diet . DI talked to RN about [employer] consult. Burn Absent Trauma Absent GI Symptoms None Difficulty In Swallowing Current % PO Fair (50-74%) Minimum of two criteria No physical signs of malnutrition Interpretation of Weight Loss (severe) >7.5% in 3 months #1 Nutrition Diagnosis Inadequate oral intake Etiology swallowing difficulties As Evidenced by Signs and Symptoms pt reports eating 0% of lunch and <25% of breakfast Is patient on ventilator? No Is Patient Ambulatory and/or Out of Bed Yes REE-([facility]-ambulatory/OOB) [ 2204.969 [id number]] Kcal/Kg value to use for calculation 24 Approximate Energy Requirements Using 6 kcal/Kg Calculation Used for Recommendations Kcal/kg Additional Notes Protein needs: 0.8-1g/kg (68- 86g/day) Fluid: 1500ml/day or per MD Nutrition Intervention Change Diet Order: cardiac mechanical soft Add Supplement/Snack (indicate name/kcal Ensure Enlive BID /protein ) Provides kCal: 700 Provides Protein (gm) 40 Teaching Recipient Patient Learning Readiness Good Teaching Methods Discussion,Handout Response to Teaching Verbalize understanding Education Handouts Provided AND Low Sodium AND Heart Healthy AND Label Reading Barriers to Learning Financial,Social RD phone number provided Yes Patient aware of follow up options Yes Actions To Overcome Barriers Other Goal #1 Meet at least 75% pt protein and energy needs via PO/ONS Anticipated Discharge Needs: Unable to determine Follow-Up By: 06/03/20 Additional Comments FU PO/ONS intakes, [employer] consult
[2020-05-31] MEDS: ASPIRIN 81 MG TAB CHEW PO SCH (11:42)
[2020-05-31] MEDS: LOSARTAN 25 MG TAB PO SCH (11:42)
[2020-05-31] MEDS: METOPROLOL SUCCINATE XL 50 MG TAB PO SCH (11:43)
[2020-05-31] MEDS: MEGESTROL 400 MG/10 ML ORAL LIQD PO SCH (14:06)
[2020-05-31] MEDS: oxyCODONE /ACETAMINOPHEN 5-325MG TAB PO PRN (17:56)
[2020-05-31] MEDS: diphenhydrAMINE 25 MG CAP PO PRN (21:00)
[2020-05-31] MEDS: oxyCODONE 5 MG TAB PO PRN (21:00)
[2020-05-31] MEDS: ONDANSETRON 4 MG/2 ML INJ IV PRN (21:09)
--- NOTE | 2020-06-01 00:05 | Treadmill Report ---
PHARMACOLOGICAL MYOCARDIAL PERFUSION IMAGING REPORT The patient is a 59-year-old -[place] gentleman presented with new onset congestive heart failure and noted to have cardiomyopathy on the echocardiogram. Also, he has underlying uncontrolled hypertension. A pharmacological stress test being performed to rule out any significant underlying ischemia. The patient's baseline EKG showed sinus rhythm with nonspecific diffuse T-wave changes in all leads. The patient had resting perfusion images performed with technetium 99m Myoview agent. This is followed by vasodilation with IV regadenoson injection 0.4 mg. The patient tolerated IV regadenoson well without any significant side effects. No chest pain. EKG did not show any changes from baseline rhythm and no significant ST-T changes were noted from the baseline. The patient had post-vasodilation perfusion images along with gating. Perfusion images during post-vasodilation and at rest showed no defects. Normal perfusion was noted. Transient ischemic dilation ratio was found to be 1.02. However, gated studies showed markedly dilated left ventricle with dyskinetic septum and the ejection fraction was calculated to be 11%. FINAL IMPRESSION: 1. The patient tolerated IV regadenoson well. 2. No significant ischemic changes post vasodilation. 3. Perfusion imaging was found to be normal. However, ejection fraction was found to be grossly abnormal in the range of 11%, severely reduced. This may be artifactual. Would correlate with other modality like echocardiogram. Considering the ejection fraction, this is prognostically high risk study, otherwise no significant ischemia noted. JOB# [id number] JAYMIE/MELANY
[2020-06-01] MEDS: oxyCODONE 5 MG TAB PO PRN ×2 (05:35→21:10)
[2020-06-01] MEDS: oxyCODONE /ACETAMINOPHEN 5-325MG TAB PO PRN ×2 (05:36→21:11)
[2020-06-01] MEDS: BENZONATATE 100 MG CAP PO SCH ×3 (05:36→21:11)
[2020-06-01] MEDS: BUMETANIDE 1 MG/4 ML INJ IV SCH ×2 (05:37→17:10)
[2020-06-01] MEDS: HEPARIN 5,000 UNIT/1 ML VIAL SUB-Q SCH ×3 (05:37→21:12)
[2020-06-01] MEDS: ASPIRIN 81 MG TAB CHEW PO SCH (09:29)
[2020-06-01] MEDS: LOSARTAN 25 MG TAB PO SCH (09:29)
[2020-06-01] MEDS: METOPROLOL SUCCINATE XL 50 MG TAB PO SCH (09:29)
[2020-06-01] MEDS: MEGESTROL 400 MG/10 ML ORAL LIQD PO SCH (09:29)
--- NOTE | 2020-06-01 10:31 | Progress Note ---
Assessment and Plan clinically improved and nearing euvolemia cont iv bumex cont arb/bb likely am dc long d/w regarding importance of medication compliance and lifestyle changes - Patient Problems (1) Acute HFrEF (heart failure with reduced ejection fraction) Current Visit: Yes Status: Acute (2) Hypertension Current Visit: Yes Status: Acute (3) SOB (shortness of breath) on exertion Current Visit: Yes Status: Acute (4) Cardiomyopathy Current Visit: Yes Status: Chronic Subjective Date of service: 06/01/20 Principal diagnosis: HF Interval history: still mild sob Objective Vital Signs Temp Pulse Pulse Resp Resp BP Pulse Ox 06/01/20 06:36 18 06/01/20 06:35 18 06/01/20 05:36 18 06/01/20 05:35 18 06/01/20 04:17 97.8 F 86 20 138/89 97 05/31/20 23:00 92 H 20 100 05/31/20 22:13 97.9 F 92 H 20 151/95 100 05/31/20 22:00 20 05/31/20 21:00 20 05/31/20 16:56 98.7 F 95 H 18 126/89 97 05/31/20 12:10 98.7 F 94 H 17 138/93 93 - Physical Examination General: No Apparent Distress HEENT: Positive: PERRL, Normocephaly, Mucus Membranes Moist Neck: Positive: neck supple, trachea midline Neuro: Positive: Grossly Intact Abdomen: Negative: Tender Skin: Negative: Rash Musculoskeletal: No Pain Extremities: Present: +2 Edema (BLE) - Imaging and Cardiology EKG: report reviewed, image reviewed Echo: report reviewed (EF 25-30%, mod LVH, LA mod dilated, RV systolic function mildly reduced, RV mod dilated, RA mod dilated, mod MR, RVSP 48mmHg, trivial pericardial effusion, mod pleural effusion.) - EKG Sinus rhythms and dysrhythmias: sinus rhythm
--- NOTE | 2020-06-01 10:53 | Progress Note ---
Assessment and Plan Assessment and plan: 59-year-old -[place] male with known history of hypertension presenting to the emergency room today complaining of shortness of breath, cough and lower extremity swelling which has been ongoing for about 2 weeks. Symptoms were said to have gotten worse over the past few days and decided to report to the emergency room. Cough has been nonproductive. He denies any chest pain, no fever or chills, no headache or dizziness, no nausea vomiting, no abdominal pain, no hematuria or dysuria. He denies any sick contacts and no recent travel, denies any contact with anyone with COVID-19. Patient has been having orthopnea and has had to prop himself up on pillows at home in order to feel comfortable. He has been wheezing occasionally. Per patient he recently lost 40 pounds. Diet and exercise but states that he feels this more due to his medical condition. On admission his chest x-ray showed cardiomegaly with mild pulmonary vascular congestion and a proBNP of 2831 Work-up in the emergency room today reveals elevated BNP, chest x-ray showed cardiomegaly with pulmonary vascular congestion, EKG shows sinus tachycardia. 05/30: Patient seen and examined, no acute event overnight. TTE reviewed - EF 25-30%, mod LVH, LA mod dilated, RV systolic function mildly reduced, RV mod dilated, RA mod dilated, mod MR, RVSP 48mmHg, trivial pericardial effusion, mod pleural effusion. Cardilology input noted with adjustments made to meds. 05/31: Patient for stress test today, clinically is improving. Discussed with cardiology 1-2 more days of diuretic to better optimize patient prior to dischar ge. Stress test was negative. Start on Megace for appetite stimulant. 06/01: Continue Diuresis, patient now states that he is homeless, case management consulted. He also reports depression but no SI/HI, he states his PCP is aware and he will discuss more with him. I recommended Psych consult but he declined. Acute congestive heart failure presumed systolic Hypertension Elevated blood sugar Nausea and vomiting Medical noncompliance Chronic pain syndrome Weight loss of 40 pounds Plan Continue goal-directed medical therapy Cardiology input noted Outpatient GI evaluation for age-appropriate colonoscopy Continue home medication Check A1c to ensure no underlying diabetes mellitus DVT and GI prophylaxis History Interval history: Patient seen and examined, Stress test was negative, patient continues diuresis. Hospitalist Physical - Physical exam Narrative exam: VITAL SIGNS: Reviewed. Exam limited due to the global pandemic and effort to preserve PPE GENERAL: The patient appears normally developed, Vital signs as documented. HEAD: No signs of head trauma. EYES: Pupils are equal. Extraocular motions intact. EARS: Hearing grossly intact. MOUTH: Oropharynx is normal except for missing dentition. NECK: No adenopathy, no JVD. CHEST: Chest with diminished breath sounds bilaterally. No wheezes, rales, or rhonchi. CARDIAC: Regular rate and rhythm. S1 and S2, without murmurs, gallops, or rubs. VASCULAR: +1 edema. Peripheral pulses normal and equal in all extremities. ABDOMEN: Soft, non tender and non distended. No rebound or guarding, and no masses palpated. Bowel Sounds normal. MUSCULOSKELETAL: Good range of motion of all major joints. Extremities without clubbing, cyanosis. +1 pitting edema bilateral lower extremity. NEUROLOGIC EXAM: Alert and oriented x 3 No focal sensory or strength deficits. Speech normal. Follows commands. PSYCHIATRIC: Mood normal. SKIN: detail exam as documented in skin assessment - Constitutional Vitals: Temp Pulse Resp BP Pulse Ox 97.8 F 86 18 138/89 97 06/01/20 04:17 06/01/20 04:17 06/01/20 06:36 06/01/20 04:17 06/01/20 04:17 General appearance: Present: no acute distress HEART Score - HEART Score Troponin: Troponin T 0.027 ng/mL (0.00-0.029) 05/28/20 21:03 Results - Labs CBC & Chem 7: 05/29/20 07:17 05/31/20 04:34 Labs: Laboratory Last Values WBC 5.0 K/mm3 (4.5-11.0) 05/29/20 07:17 RBC 4.54 M/mm3 (3.65-5.03) 05/29/20 07:17 Hgb 13.1 gm/dl (11.8-15.2) 05/29/20 07:17 Hct 39.7 % (35.5-45.6) 05/29/20 07:17 MCV 87 fl (84-94) 05/29/20 07:17 MCH 29 pg (28-32) 05/29/20 07:17 MCHC 33 % (32-34) 05/29/20 07:17 RDW 15.4 % (13.2-15.2) H 05/29/20 07:17 Plt Count 169 K/mm3 (140-440) 05/29/20 07:17 Lymph % (Auto) 18.3 % (13.4-35.0) 05/28/20 19:03 Terry % (Auto) 8.9 % (0.0-7.3) H 05/28/20 19:03 Eos % (Auto) 1.9 % (0.0-4.3) 05/28/20 19:03 Baso % (Auto) 0.8 % (0.0-1.8) 05/28/20 19:03 Lymph # (Auto) 1.0 K/mm3 (1.2-5.4) L 05/28/20 19:03 Terry # (Auto) 0.5 K/mm3 (0.0-0.8) 05/28/20 19:03 Eos # (Auto) 0.1 K/mm3 (0.0-0.4) 05/28/20 19:03 Baso # (Auto) 0.0 K/mm3 (0.0-0.1) 05/28/20 19:03 Add Manual Diff Complete 05/29/20 07:17 Total Counted 100 05/29/20 07:17 Seg Neutrophils % Director Public Service 05/29/20 07:17 Seg Neuts % (Manual) 91.0 % (40.0-70.0) H 05/29/20 07:17 Band Neutrophils % 0 % 05/29/20 07:17 Lymphocytes % (Manual) 9.0 % (13.4-35.0) L 05/29/20 07:17 Reactive Lymphs % (Man) 0 % 05/29/20 07:17 Monocytes % (Manual) 0 % (0.0-7.3) 05/29/20 07:17 Eosinophils % (Manual) 0 % (0.0-4.3) 05/29/20 07:17 Basophils % (Manual) 0 % (0.0-1.8) 05/29/20 07:17 Metamyelocytes % 0 % 05/29/20 07:17 Myelocytes % 0 % 05/29/20 07:17 Promyelocytes % 0 % 05/29/20 07:17 Blast Cells % 0 % 05/29/20 07:17 Nucleated RBC % Not Reportable 05/29/20 07:17 Seg Neutrophils # 4.0 K/mm3 (1.8-7.7) 05/28/20 19:03 Seg Neutrophils # Man 4.6 K/mm3 (1.8-7.7) 05/29/20 07:17 Band Neutrophils # 0.0 K/mm3 05/29/20 07:17 Lymphocytes # (Manual) 0.5 K/mm3 (1.2-5.4) L 05/29/20 07:17 Abs React Lymphs (Man) 0.0 K/mm3 05/29/20 07:17 Monocytes # (Manual) 0.0 K/mm3 (0.0-0.8) 05/29/20 07:17 Eosinophils # (Manual) 0.0 K/mm3 (0.0-0.4) 05/29/20 07:17 Basophils # (Manual) 0.0 K/mm3 (0.0-0.1) 05/29/20 07:17 Metamyelocytes # 0.0 K/mm3 05/29/20 07:17 Myelocytes # 0.0 K/mm3 05/29/20 07:17 Promyelocytes # 0.0 K/mm3 05/29/20 07:17 Blast Cells # 0.0 K/mm3 05/29/20 07:17 WBC Morphology Not Reportable 05/29/20 07:17 Hypersegmented Neuts Not Reportable 05/29/20 07:17 Hyposegmented Neuts Not Reportable 05/29/20 07:17 Hypogranular Neuts Not Reportable 05/29/20 07:17 Smudge Cells Not Reportable 05/29/20 07:17 Toxic Granulation Not Reportable 05/29/20 07:17 Toxic Vacuolation Not Reportable 05/29/20 07:17 Dohle Bodies Not Reportable 05/29/20 07:17 Pelger-Huet Anomaly Not Reportable 05/29/20 07:17 Conner Rods Not Reportable 05/29/20 07:17 Platelet Estimate Consistent w auto 05/29/20 07:17 Clumped Platelets Not Reportable 05/29/20 07:17 Plt Clumps, EDTA Not Reportable 05/29/20 07:17 Large Platelets Not Reportable 05/29/20 07:17 Giant Platelets Not Reportable 05/29/20 07:17 Platelet Satelliting Not Reportable 05/29/20 07:17 Plt Morphology Comment Not Reportable 05/29/20 07:17 RBC Morphology Normal 05/29/20 07:17 Dimorphic RBCs Not Reportable 05/29/20 07:17 Polychromasia Not Reportable 05/29/20 07:17 Hypochromasia Not Reportable 05/29/20 07:17 Poikilocytosis Not Reportable 05/29/20 07:17 Anisocytosis Not Reportable 05/29/20 07:17 Microcytosis Not Reportable 05/29/20 07:17 Macrocytosis Not Reportable 05/29/20 07:17 Spherocytes Not Reportable 05/29/20 07:17 Pappenheimer Bodies Not Reportable 05/29/20 07:17 Sickle Cells Not Reportable 05/29/20 07:17 Target Cells Not Reportable 05/29/20 07:17 Tear Drop Cells Not Reportable 05/29/20 07:17 Ovalocytes Not Reportable 05/29/20 07:17 Helmet Cells Not Reportable 05/29/20 07:17 [place] Bodies Not Reportable 05/29/20 07:17 [place] Rings Not Reportable 05/29/20 07:17 Reyes Cells Not Reportable 05/29/20 07:17 Bite Cells Not Reportable 05/29/20 07:17 Crenated Cell Not Reportable 05/29/20 07:17 Elliptocytes Not Reportable 05/29/20 07:17 Acanthocytes (Spur) Not Reportable 05/29/20 07:17 Rouleaux Not Reportable 05/29/20 07:17 Hemoglobin C Crystals Not Reportable 05/29/20 07:17 Schistocytes Not Reportable 05/29/20 07:17 Malaria parasites Not Reportable 05/29/20 07:17 Darell Bodies Not Reportable 05/29/20 07:17 Hem Pathologist Commnt No 05/29/20 07:17 PT 13.0 Sec. (12.2-14.9) 05/29/20 07:17 INR 0.99 (0.87-1.13) 05/29/20 07:17 Sodium 139 mmol/L (137-145) 05/31/20 04:34 Potassium 4.7 mmol/L (3.6-5.0) 05/31/20 04:34 Chloride 101.4 mmol/L (98-107) 05/31/20 04:34 Carbon Dioxide 33 mmol/L (22-30) H 05/31/20 04:34 Anion Gap 9 mmol/L 05/31/20 04:34 BUN 23 mg/dL (9-20) H 05/31/20 04:34 Creatinine 1.3 mg/dL (0.8-1.3) 05/31/20 04:34 Estimated GFR > 60 ml/min 05/31/20 04:34 BUN/Creatinine Ratio 18 % 05/31/20 04:34 Glucose 84 mg/dL (75-100) 05/31/20 04:34 Hemoglobin A1c 6.2 % (4-6) H 05/29/20 17:11 Calcium 8.7 mg/dL (8.4-10.2) 05/31/20 04:34 Total Bilirubin 0.30 mg/dL (0.1-1.2) 05/28/20 19:03 AST 41 units/L (5-40) H 05/28/20 19:03 ALT 49 units/L (7-56) 05/28/20 19:03 Alkaline Phosphatase 93 units/L (35-129) 05/28/20 19:03 Troponin T 0.027 ng/mL (0.00-0.029) 05/28/20 21:03 NT-Pro-B Natriuret Pep 2831 pg/mL (0-900) H 05/28/20 19:03 Total Protein 5.9 g/dL (6.3-8.2) L 05/28/20 19:03 Albumin 3.5 g/dL (3.9-5) L 05/28/20 19:03 Albumin/Globulin Ratio 1.5 % 05/28/20 19:03 Triglycerides 135 mg/dL (2-149) 05/30/20 05:16 Cholesterol 178 mg/dL (50-199) 05/30/20 05:16 LDL Cholesterol Direct 121 mg/dL (50-130) 05/30/20 05:16 HDL Cholesterol 57 mg/dL (40-59) 05/30/20 05:16 Cholesterol/HDL Ratio 3.12 % 05/30/20 05:16 - Diagnostic Impressions Diagnostic Impressions: Echocardiogram 05/28/20 22:40 Transthoracic Echocardiogram Indication: SOB BP: 145/93 HR: 107 Conclusions *The left ventricular chamber size is normal. *Moderate concentric left ventricular hypertrophy is observed. *Severe global hypokinesis of the left ventricle is observed. *The estimated ejection fraction is 25-30%. *The left ventricular diastolic filling pattern is consistent with elevated left ventricular end-diastolic pressure. *The left atrium is moderately dilated. *The right ventricular global systolic function is mildly reduced. *The right ventricle is moderately dilated. *The right atrium is moderately dilated. *There is moderate mitral regurgitation. *The right ventricular systolic pressure is calculated at 48 mmHg. *A trivial pericardial effusion is visualized. *There is a moderate pleural effusion. *There is less than 50% respiratory change in the inferior vena cava dimension. Findings Left Ventricle: The left ventricular chamber size is normal. Moderate concentric left ventricular hypertrophy is observed. Severe global hypokinesis of the left ventricle is observed. Global left ventricular systolic function is severely decreased. The estimated ejection fraction is 25-30%. The left ventricular diastolic filling pattern is consistent with elevated left ventricular end-diastolic pressure. Left Atrium: The left atrium is moderately dilated. Right Ventricle: The right ventricle is moderately dilated. The right ventricular global systolic function is mildly reduced. Right Atrium: The right atrium is moderately dilated. Aortic Valve: The aortic valve leaflets are mildly thickened. There is no evidence of aortic regurgitation. Mitral Valve: The mitral valve leaflets are mildly thickened. There is moderate mitral regurgitation. Tricuspid Valve: The tricuspid valve leaflets are normal. There is moderate to severe tricuspid regurgitation. The right ventricular systolic pressure is calculated at 48 mmHg. Pulmonic Valve: The pulmonic valve appears normal. There is trace pulmonic regurgitation. Pericardium: A trivial pericardial effusion is visualized. There is a moderate pleural effusion. Venous: The inferior vena cava is dilated. There is less than 50% respiratory change in the inferior vena cava dimension. Measurements Chambers 2D Name Value Normal Range IVSd (2D) 1.41 cm (0.6 - 1.1) LVPWd (2D) 1.4 cm (0.6 - 1.1) LVIDd (2D) 5.35 cm (3.7 - 5.6) LVIDs (2D) 4.85 cm (2 - 3.8) LV FS (2D) 9.19 % - EF Teichholz (2D) 20.05 % - Ao root diameter (2D) 3.01 cm (2 - 3.7) Volumes/Mass Name Value Normal Range LA ESV SP 4CH (A/L) 95.41 ml - LA ESV SP 2CH (A/L) 98.82 ml - LA ESV BP (A/L) 102.49 ml - LA ESV BP (A/L) index 48.81 ml/m2 - LA ESV SP 4CH (MOD) 86.52 ml - LA ESV SP 2CH (MOD) 92.96 ml - LA ESV BP (MOD) 94.59 ml - LA ESV BP (MOD) index 45.04 ml/m2 - Diastolic/Systolic Function Name Value Normal Range MV E-wave Vmax 0.82 m/sec - MV deceleration time 177.9 msec - Aortic Valve Name Value Normal Range AV Vmax 1.02 m/sec - AV VTI 15.89 cm - AV peak gradient 4.18 mmHg - AV mean gradient 2.45 mmHg - LVOT diameter 2.09 cm - LVOT Vmax 0.78 m/sec - LVOT VTI 13.02 cm - LVOT peak gradient 2.41 mmHg - LVOT mean gradient 1.44 mmHg - SV LVOT 44.71 ml - MERLIN (continuity Vmax) 2.61 cm2 - MERLIN (continuity VTI) 2.81 cm2 - Mitral Valve Name Value Normal Range MR volume (PISA) 22.29 ml - MR flow (PISA) 83.41 ml/sec - MR ERO 0.15 cm2 - MR PISA radius 0.74 cm - MR alias Vmax 24.57 cm/sec - Tricuspid Valve Name Value Normal Range TR Vmax 2.91 m/sec - TR peak gradient 33 mmHg - RAP 15 mmHg - RVSP 48 mmHg - IVC diameter 2.45 cm (1.2 - 2.3) Pulmonic Valve/Qp:Qs Name Value Normal Range PV Vmax 0.53 m/sec - PV peak gradient 1.14 mmHg - IA end-diastolic Vmax 1.17 m/sec - PV acceleration time 68.51 msec - [place]/IV: Voiding Method Toilet IV Catheter Type [Left INT / Saline Lock Antecubital] Active Medications - Current Medications Current Medications: Generic Name Dose Route Start Last Admin Trade Name Freq PRN Reason Stop Dose Admin Acetaminophen 650 mg 05/28/20 22:39 Tylenol PO Q4H PRN Pain MILD(1-3)/Fever >100.5/ZHANG Aspirin 81 mg 05/30/20 10:00 06/01/20 09:29 Baby Aspirin PO 81 mg QDAY DIANA Administration Benzonatate 100 mg 05/29/20 14:00 06/01/20 05:36 Tessalon Perles PO 100 mg Q8HR DIANA Administration Bumetanide 1 mg 05/30/20 11:30 06/01/20 05:37 Bumetanide 1 Mg/4 Ml Inj IV 1 mg BID@0600,1800 DIANA Administration Cyclobenzaprine HCl 10 mg 05/29/20 11:42 Flexeril PO TID PRN Muscle Spasm Diphenhydramine HCl 25 mg 05/29/20 01:27 05/31/20 21:00 Benadryl PO 25 mg QHS PRN Administration Sleep Heparin Sodium (Porcine) 5,000 unit 05/29/20 06:00 06/01/20 05:37 Heparin SUB-Q 5,000 unit Q8HR DIANA Administration Losartan Potassium 25 mg 05/30/20 10:00 06/01/20 09:29 Cozaar PO 25 mg QDAY DIANA Administration Magnesium Hydroxide 30 ml 05/28/20 22:39 Milk Of Magnesia PO Q4H PRN Constipation Megestrol Acetate 400 mg 05/31/20 13:00 06/01/20 09:29 Megestrol 400 Mg/10 Ml Oral Liqd PO 400 mg QDAY DIANA Administration Metoprolol Succinate 50 mg 05/29/20 11:00 06/01/20 09:29 Metoprolol Xl PO 50 mg QDAY DIANA Administration Ondansetron HCl 4 mg 05/28/20 22:39 05/31/20 21:09 Zofran IV 4 mg Q8H PRN Administration Nausea And Vomiting Oxycodone HCl 10 mg 05/29/20 12:37 06/01/20 05:35 Roxicodone PO 10 mg Q6H PRN Administration Pain, Moderate (4-6) Oxycodone/Acetaminophen 1 tab 05/29/20 11:49 12/12/20 05:36 Percocet 5/325 PO 1 tab Q6H PRN Administration Pain, Moderate (4-6) Sodium Chloride 10 ml 05/29/20 10:00 06/01/20 09:30 Sodium Chloride Flush Syringe 10 Ml IV 10 ml BID DIANA Administration Sodium Chloride 10 ml 05/28/20 22:39 06/01/20 05:38 Sodium Chloride Flush Syringe 10 Ml IV 10 ml PRN PRN Administration LINE FLUSH Nutrition/Malnutrition Assess - Dietary Evaluation Nutrition/Malnutrition Findings: Nutrition Notes Start: 05/29/20 12:58 Freq: Status: Active Protocol: Document 05/30/20 14:23 CW (Rec: 05/30/20 14:45 CW [email or web address]) Co-Sign 05/30/20 14:23 MK Nutrition Notes Need for Assessment generated from: MD Order,Education Initial or Follow up Assessment Current Diagnosis Hypertension,Heart Failure Other Pertinent Diagnosis Edema, fluid restriction Current Diet Cardiac Labs/Tests BG 114 Pertinent Medications 05/30 Zofran Height 5 ft 11 in Weight 86.9 kg Usual Body Weight 97.5 kg [place] Body Weight (kg) 78.18 BMI 26.7 Intake Prior to Admission Fair Weight change and time frame 11% wt loss in 3-4 months Weight Status Overweight Subjective/Other Information MD consult for diet education. Pt states prior poor intake of only soups, juices, ONS. Pt reports UBW of 215lb and unintentional wt loss over the past 3-4 months. Pt reports difficulty swallowing solids. Pt request Ensure and preferences recorded. Pt was educated on fluid restriction, low sodium, heart health diet . DI talked to RN about PSYCHIC READER consult. Burn Absent Trauma Absent GI Symptoms None Difficulty In Swallowing Current % PO Fair (50-74%) Minimum of two criteria No physical signs of malnutrition Interpretation of Weight Loss (severe) >7.5% in 3 months #1 Nutrition Diagnosis Inadequate oral intake Etiology swallowing difficulties As Evidenced by Signs and Symptoms pt reports eating 0% of lunch and <25% of breakfast Is patient on ventilator? No Is Patient Ambulatory and/or Out of Bed Yes REE-([place] Jeor-ambulatory/OOB) [ 7954.969 [id number]] Kcal/Kg value to use for calculation 24 Approximate Energy Requirements Using 6 kcal/Kg Calculation Used for Recommendations Kcal/kg Additional Notes Protein needs: 0.8-1g/kg (68- 86g/day) Fluid: 1500ml/day or per MD Nutrition Intervention Change Diet Order: cardiac mechanical soft Add Supplement/Snack (indicate name/kcal Ensure Enlive BID /protein ) Provides kCal: 700 Provides Protein (gm) 40 Teaching Recipient Patient Learning Readiness Good Teaching Methods Discussion,Handout Response to Teaching Verbalize understanding Education Handouts Provided AND Low Sodium AND Heart Healthy AND Label Reading Barriers to Learning Financial,Social RD phone number provided Yes Patient aware of follow up options Yes Actions To Overcome Barriers Other Goal #1 Meet at least 75% pt protein and energy needs via PO/ONS Anticipated Discharge Needs: Unable to determine Follow-Up By: 06/03/20 Additional Comments FU PO/ONS intakes, PSYCHIC READER consult
[2020-06-01] MEDS: ONDANSETRON 4 MG/2 ML INJ IV PRN (13:27)
[2020-06-01] MEDS: diphenhydrAMINE 25 MG CAP PO PRN (21:11)
[2020-06-02] MEDS: HEPARIN 5,000 UNIT/1 ML VIAL SUB-Q SCH ×2 (05:43→13:18)
[2020-06-02] MEDS: BENZONATATE 100 MG CAP PO SCH ×2 (05:43→13:18)
[2020-06-02] MEDS: BUMETANIDE 1 MG/4 ML INJ IV SCH (05:43)
[2020-06-02] MEDS: LOSARTAN 25 MG TAB PO SCH (09:40)
[2020-06-02] MEDS: MEGESTROL 400 MG/10 ML ORAL LIQD PO SCH (09:40)
[2020-06-02] MEDS: ASPIRIN 81 MG TAB CHEW PO SCH (09:40)
[2020-06-02] MEDS: METOPROLOL SUCCINATE XL 50 MG TAB PO SCH (09:40)
--- NOTE | 2020-06-02 10:41 | Progress Note ---
Assessment and Plan clinically improved and now euvolemic tele unremarkable cont current meds long d/w regarding importance of medication compliance and lifestyle changes f/u w us in office - Patient Problems (1) Acute HFrEF (heart failure with reduced ejection fraction) Current Visit: Yes Status: Acute (2) Hypertension Current Visit: Yes Status: Acute (3) SOB (shortness of breath) on exertion Current Visit: Yes Status: Acute (4) Cardiomyopathy Current Visit: Yes Status: Chronic Subjective Principal diagnosis: HF Interval history: doing much better no sxs Objective Vital Signs Temp Pulse Resp BP Pulse Ox 06/02/20 04:40 97.6 F 79 20 131/92 96 06/01/20 22:25 98.0 F 94 H 20 137/104 99 06/01/20 20:00 18 98 06/01/20 16:11 98.1 F 88 22 117/76 99 06/01/20 11:35 97.5 F L 86 22 125/87 97 - Physical Examination General: No Apparent Distress HEENT: Positive: PERRL, Normocephaly, Mucus Membranes Moist Neck: Positive: neck supple, trachea midline Neuro: Positive: Grossly Intact Abdomen: Negative: Tender Skin: Negative: Rash Musculoskeletal: No Pain Extremities: Present: +2 Edema (BLE) - Imaging and Cardiology EKG: report reviewed, image reviewed Echo: report reviewed (EF 25-30%, mod LVH, LA mod dilated, RV systolic function mildly reduced, RV mod dilated, RA mod dilated, mod MR, RVSP 48mmHg, trivial pericardial effusion, mod pleural effusion.) - EKG Sinus rhythms and dysrhythmias: sinus rhythm
--- NOTE | 2020-06-02 12:07 | Discharge Summary ---
Providers - Providers Date of Admission: 05/29/20 11:41 Attending physician: RINA DIAMOND MD 05/28/20 22:39 Consult to Physician [CONS] Routine Comment: Consulting Provider: JESSICA NANCE Physician Instructions: Reason For Exam: CHF- New Onset 05/30/20 12:10 Consult to Dietitian/Nutrition [CONS] Routine Physician Instructions: HF diet, fluid restriction Reason For Exam: Reason for Consult: Diet education 06/01/20 11:19 Consult to Case Management [CONS] Routine Services Needed at Discharge: [employer]ator Notified:: no Additional Physician Instructions: homeless Primary care physician: CHEF CONCIERGE Hospitalization Reason for admission: CHF Condition: Stable Hospital course: 59-year-old -[place] male with known history of hypertension presenting to the emergency room today complaining of shortness of breath, cough and lower extremity swelling which has been ongoing for about 2 weeks. Symptoms were said to have gotten worse over the past few days and decided to report to the emergency room. Cough has been nonproductive. He denies any chest pain, no fever or chills, no headache or dizziness, no nausea vomiting, no abdominal pain, no hematuria or dysuria. He denies any sick contacts and no recent travel, denies any contact with anyone with COVID-19. Patient has been having orthopnea and has had to prop himself up on pillows at home in order to feel comfortable. He has been wheezing occasionally. Per patient he recently lost 40 pounds. Diet and exercise but states that he feels this more due to his medical condition. On admission his chest x-ray showed cardiomegaly with mild pulmonary vascular congestion and a proBNP of 2831 Work-up in the emergency room today reveals elevated BNP, chest x-ray showed cardiomegaly with pulmonary vascular congestion, EKG shows sinus tachycardia. 05/30: Patient seen and examined, no acute event overnight. TTE reviewed - EF 25-30%, mod LVH, LA mod dilated, RV systolic function mildly reduced, RV mod dilated, RA mod dilated, mod MR, RVSP 48mmHg, trivial pericardial effusion, mod pleural effusion. Cardilology input noted with adjustments made to meds. 05/31: Patient for stress test today, clinically is improving. Discussed with cardiology 1-2 more days of diuretic to better optimize patient prior to discharge. Stress test was negative. Start on Megace for appetite stimulant. 06/01: Continue Diuresis, patient now states that he is homeless, case management consulted. He also reports depression but no SI/HI, he states his PCP is aware and he will discuss more with him. I recommended Psych consult but he declined. 06/02: Patient clinically improved ambulating without worsening shortness of breath sleeping supine. Will follow with his primary care physician for all other management plans. Acute congestive heart failure presumed systolic Hypertension Elevated blood sugar Nausea and vomiting Medical noncompliance Chronic pain syndrome Weight loss of 40 pounds Disposition: DC-01 TO HOME OR SELFCARE Time spent for discharge: 35 MINS Core Measure Documentation - Palliative Care Palliative Care/ Comfort Measures: Not Applicable - Core Measures Any of the following diagnoses?: heart failure - Heart Failure Discharge Requirements HAVEN/ARB for LVSD if EF <40%: Yes Beta josue at discharge: Yes Exam - Physical Exam Narrative exam: VITAL SIGNS: Reviewed. Exam limited due to the global pandemic and effort to preserve PPE GENERAL: The patient appears normally developed, Vital signs as documented. HEAD: No signs of head trauma. EYES: Pupils are equal. Extraocular motions intact. EARS: Hearing grossly intact. MOUTH: Oropharynx is normal except for missing dentition. NECK: No adenopathy, no JVD. CHEST: Chest with diminished breath sounds bilaterally. No wheezes, rales, or rhonchi. CARDIAC: Regular rate and rhythm. S1 and S2, without murmurs, gallops, or rubs. VASCULAR: +1 edema. Peripheral pulses normal and equal in all extremities. ABDOMEN: Soft, non tender and non distended. No rebound or guarding, and no masses palpated. Bowel Sounds normal. MUSCULOSKELETAL: Good range of motion of all major joints. Extremities without clubbing, cyanosis. +1 pitting edema bilateral lower extremity. NEUROLOGIC EXAM: Alert and oriented x 3 No focal sensory or strength deficits. Speech normal. Follows commands. PSYCHIATRIC: Mood normal. SKIN: detail exam as documented in skin assessment - Constitutional Vitals: Temp Pulse Resp BP Pulse Ox 97.6 F 79 20 131/92 96 06/02/20 04:40 06/02/20 04:40 06/02/20 04:40 06/02/20 04:40 06/02/20 04:40 Plan Activity: advance as tolerated, fall precautions Diet: low salt Special Instructions: restrict fluid intake to (1000CC/DAY), record daily weights, record daily BP diary Follow up with: PRIMARY CARE, [Primary Care Provider] - 3-5 Days JUANITA GUZMAN MD [Staff Physician] - 7 Days JESSICA NANCE MD [Staff Physician] - 7 Days Prescriptions: Aspirin [Aspirin BABY CHEW TAB] 81 mg PO QDAY #30 tab.chew Losartan [Cozaar] 25 mg PO QDAY #30 tablet Furosemide [Lasix TAB] 40 mg PO BID #60 tablet Metoprolol Xl [Metoprolol SUCCINATE ER TAB] 50 mg PO QDAY #30 tablet
[2020-06-02 13:05] VITALS: BP 131/80
== END 2020-06-02 16:00 | disposition home or self-care (01) | DRG 291 ==
LOC: ED 17:04 → 3A 21:40 → OBSVTOIN 05-29 11:41
PROVIDERS: ADMIT Internal Medicine Geriatric Medicine; ATTEND Internal Medicine
DX: I11.0 Hypertensive heart disease with heart failure (principal); I50.21 Acute systolic (congestive) heart failure; J91.8 Pleural effusion in other conditions classified elsewhere; J45.909 Unspecified asthma, uncomplicated; M19.90 Unspecified osteoarthritis, unspecified site; F17.210 Nicotine dependence, cigarettes, uncomplicated; Z91.14 Patient's other noncompliance with medication regimen; G89.4 Chronic pain syndrome; Z88.6 Allergy status to analgesic agent; I42.9 Cardiomyopathy, unspecified; R73.9 Hyperglycemia, unspecified
CPT/HCPCS: 36415; 71046; 78452; 80048; 80053; 80061; 83036; 83880; 84484; 85007; 85025; 85610; 90686; 93005; 93017; 93306; 93970; 96374; 96375; 99406; G0378; A9502; J1644; J1885; J1940; J2060; J2405; J2785; J2930; J7512

== ENCOUNTER 2021-10-30 09:45 | Emergency (ER) | payer SELFPAY ==
[2021-10-30] MEDS ORDERED: ASPIRIN 81 MG TAB CHEW PO ONE (23:14)
[2021-10-30] MEDS ORDERED: NITROGLYCERIN 0.4 MG TAB SUBL SL ONE (23:28)
--- NOTE | 2021-10-30 23:31 | Emergency Department Report ---
ED General Adult HPI - General Chief complaint: Chest Pain Stated complaint: HEART FAILURE/CP Time Seen by Provider: 10/30/21 23:14 Source: patient Mode of arrival: Ambulatory Limitations: No Limitations - History of Present Illness Initial comments: Patient is 60 years old male with history of congestive heart failure and hypertension. Patient is noncompliant with his medication. Patient presented to the ER complaining of chest pain, tightness associated with shortness of breath especially when he walk. Patient describes orthopnea also. Patient denies any fever or chills. No cough. Patient also reporting bilateral lower extremity swelling. Severity scale (0 -10): 7 - Related Data Previous Rx's Medication Instructions Recorded Last Taken Type Oxycodone HCl/Acetaminophen 1 each PO Q6HR PRN #20 tablet 07/17/15 05/29/20 Rx [Percocet 10/325 mg] Albuterol Mdi (or & Nicu Only) 1 puff IH Q4-6H PRN #1 inha 05/07/20 Unknown Rx [ProAir HFA Inhaler] Aspirin [Aspirin BABY CHEW TAB] 81 mg PO QDAY #30 tab.chew 06/02/20 Unknown Rx Furosemide [Lasix TAB] 40 mg PO BID #60 tablet 06/02/20 Unknown Rx Losartan [Cozaar] 25 mg PO QDAY #30 tablet 06/02/20 Unknown Rx Metoprolol Xl [Metoprolol 50 mg PO QDAY #30 tablet 06/02/20 Unknown Rx SUCCINATE ER TAB] Allergies Allergy/AdvReac Type Severity Reaction Status Date / Time ibuprofen [From Motrin] Allergy Nausea Verified 07/17/15 08:49 ED Review of Systems ROS: Stated complaint: HEART FAILURE/CP Other details as noted in HPI Comment: All other systems reviewed and negative Constitutional: denies: chills, fever Respiratory: orthopnea, shortness of breath, SOB with exertion, SOB at rest Cardiovascular: chest pain, palpitations Gastrointestinal: denies: abdominal pain, nausea, diarrhea, constipation, hematemesis, hematochezia Musculoskeletal: denies: back pain Neurological: denies: headache, weakness, numbness, paresthesias, confusion, abnormal gait ED Past Medical Hx - Past Medical History Hx Hypertension: Yes Hx Congestive Heart Failure: Yes Hx Arthritis: Yes - Social History Smoking Status: Former Smoker Substance Use Type: None - Medications Home Medications: Home Medications Medication Instructions Recorded Confirmed Last Taken Type Oxycodone HCl/Acetaminophen 1 each PO Q6HR PRN #20 tablet 07/17/15 05/31/20 05/29/20 Rx [Percocet 10/325 mg] Albuterol Mdi (or & Nicu Only) 1 puff IH Q4-6H PRN #1 inha 05/07/20 05/31/20 Unknown Rx [ProAir HFA Inhaler] Aspirin [Aspirin BABY CHEW TAB] 81 mg PO QDAY #30 tab.chew 06/02/20 Unknown Rx Furosemide [Lasix TAB] 40 mg PO BID #60 tablet 06/02/20 Unknown Rx Losartan [Cozaar] 25 mg PO QDAY #30 tablet 06/02/20 Unknown Rx Metoprolol Xl [Metoprolol 50 mg PO QDAY #30 tablet 06/02/20 Unknown Rx SUCCINATE ER TAB] ED Physical Exam - General Limitations: No Limitations General appearance: alert, in no apparent distress - Head Head exam: Present: atraumatic, normocephalic, normal inspection - Eye Eye exam: Present: normal appearance - ENT ENT exam: Present: normal exam, normal orophraynx, mucous membranes moist - Neck Neck exam: Present: normal inspection, full ROM. Absent: tenderness, meningismus - Respiratory Respiratory exam: Present: decreased breath sounds. Absent: respiratory distress, wheezes, rales, rhonchi - Cardiovascular Cardiovascular Exam: Present: tachycardia - GI/Abdominal GI/Abdominal exam: Present: soft, normal bowel sounds. Absent: distended, tenderness, guarding, rebound, rigid, organomegaly, mass, bruit, pulsatile mass, hernia - Extremities Exam Extremities exam: Present: pedal edema - Back Exam Back exam: Present: normal inspection, full ROM. Absent: CVA tenderness (R), CVA tenderness (L) - Neurological Exam Neurological exam: Present: alert, oriented X3, CN II-XII intact, normal gait, reflexes normal. Absent: motor sensory deficit - Psychiatric Psychiatric exam: Present: normal mood - Skin Skin exam: Present: warm, intact, normal color ED Course Vital Signs 10/30/21 10/30/21 10/30/21 10:57 23:30 23:35 Temperature 98.0 F 98.3 F Pulse Rate 103 H 113 H 106 H Respiratory 20 14 Rate Blood Pressure 177/116 180/102 Blood Pressure 177/116 180/102 [Left] O2 Sat by Pulse 100 100 Oximetry 10/31/21 10/31/21 02:05 02:07 Temperature 98.2 F Pulse Rate 82 Respiratory 16 Rate Blood Pressure Blood Pressure 157/102 [Left] O2 Sat by Pulse 98 99 Oximetry ED Medical Decision Making - Lab Data Result diagrams: 10/30/21 23:20 10/30/21 23:20 - EKG Data -: EKG Interpreted by Mn EKG shows normal: sinus rhythm Rate: normal - EKG Data Interpretation: no acute changes - Radiology Data Radiology results: report reviewed - Medical Decision Making Patient is 60 years old male with history of congestive heart failure and hypertension. Patient is noncompliant with his medication. Patient presented to the ER complaining of chest pain, tightness associated with shortness of breath especially when he walk. Patient describes orthopnea also. Patient denies any fever or chills. No cough. Patient also reporting bilateral lower extremity swelling. EKG showed no ST elevation. Labs reviewed and showed elevated BNP of 1300. Troponin is negative x2. Patient is chest pain-free. Chest x-ray showed pulmonary edema and small pleural effusion. Patient received Lasix 60 mg IV and nitro. Patient stated that he is feeling much better. Patient had urine out put so far more than 1000 mL. 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 Critical care attestation.: If time is entered above; I have spent that time in minutes in the direct care of this critically ill patient, excluding procedure time. ED Disposition Clinical Impression: Acute exacerbation of CHF (congestive heart failure), Malignant hypertension Disposition: 01 HOME / SELF CARE / HOMELESS Is pt being admited?: No Condition: Stable Instructions: Hypertension (ED), Heart Failure Exacerbation, Hypertension, Adult Referrals: [facility] [Provider Group] - 3-5 Days
[2021-10-30 23:42] LABS: Basophils % (Auto) 0.8 % (0.0-1.8); Eosinophils # (Auto) 0.1 K/mm3 (0.0-0.4); Eosinophils % (Auto) 2.4 % (0.0-4.3); Hematocrit 43.4 % (35.5-45.6); Hemoglobin 13.9 gm/dl (11.8-15.2); Lymphocytes # (Auto) 1.3 K/mm3 (1.2-5.4); Lymphocytes % (Auto) 24.7 % (13.4-35.0); Mean Corpuscular HGB Conc 32 % (32-34); Mean Corpuscular Volume 90 fl (84-94); Monocytes # (Auto) 0.6 K/mm3 (0.0-0.8); Monocytes % (Auto) 10.9 % (0.0-7.3); Platelet Count 180 K/mm3 (140-440); Red Blood Count 4.85 M/mm3 (3.65-5.03); Red Cell Distribution Width 13.3 % (13.2-15.2)
[2021-10-30 23:56] LABS: BUN/Creatinine Ratio 11; Blood Urea Nitrogen 12 mg/dL (9-20); Calcium 10.1 mg/dL (8.4-10.2); Hemolysis Index 9
--- NOTE | 2021-10-30 23:56 | XRay Report ---
CHEST 1 VIEW 10/30/2021 11:24 PM INDICATION / CLINICAL INFORMATION: Chest Pain. COMPARISON: 05/28/2020 FINDINGS: SUPPORT DEVICES: None. HEART / MEDIASTINUM: No significant abnormality. LUNGS / PLEURA: Possible trace left pleural effusion. No focal consolidation. No pneumothorax. ADDITIONAL FINDINGS: No significant additional findings. IMPRESSION: 1. Possible trace left pleural effusion. No focal consolidation. Signer Name: Poncho Sands DO Signed: 10/30/2021 11:51 PM Workstation Name: [id number]
[2021-10-30 23:58] LABS: Alanine Aminotransferase 26 units/L (7-56); Albumin 4.1 g/dL (3.9-5)
[2021-10-31] LABS: Bilirubin,Direct < 0.2 mg/dL (0-0.2)
[2021-10-31 00:05] LABS: INR 0.83 (0.87-1.13)
[2021-10-31 00:06] LABS: Partial Thromboplastin Time 25.7 Sec. (24.2-36.6)
[2021-10-31] MEDS ORDERED: FUROSEMIDE 40 MG/4 ML INJ IV ONE (00:13)
[2021-10-31 02:07] VITALS: BP 157/102
== END 2021-10-31 03:40 | disposition home or self-care (01) ==
LOC: ED 09:45
DX: I50.21 Acute systolic (congestive) heart failure (principal); I10 Essential (primary) hypertension; Z87.891 Personal history of nicotine dependence; Z88.6 Allergy status to analgesic agent
CPT/HCPCS: 36415; 71045; 80048; 80076; 83690; 83880; 84484; 85025; 85610; 85730; 93005; 96374; 99284; J1940

== ENCOUNTER 2021-11-14 08:18 | Emergency (ER) | payer SELFPAY ==
[2021-11-14 15:00] LABS: Hematocrit 39.8 % (35.5-45.6); Hemoglobin 12.6 gm/dl (11.8-15.2); Mean Corpuscular HGB Conc 32 % (32-34); Mean Corpuscular Volume 90 fl (84-94); Platelet Count 150 K/mm3 (140-440); Red Blood Count 4.42 M/mm3 (3.65-5.03); Red Cell Distribution Width 13.7 % (13.2-15.2)
--- NOTE | 2021-11-14 15:19 | XRay Report ---
CHEST 2 VIEWS INDICATION / CLINICAL INFORMATION: chest pain. COMPARISON: Chest x-ray 10/30/2021 FINDINGS: SUPPORT DEVICES: None. HEART / MEDIASTINUM: No significant abnormality. LUNGS / PLEURA: No significant pulmonary or pleural abnormality. No pneumothorax. BONES: No significant osseous abnormality. ADDITIONAL FINDINGS: No significant additional findings. IMPRESSION: 1. No active cardiopulmonary disease. Signer Name: Bruce Carvalho II, MD Signed: 11/14/2021 3:14 PM Workstation Name: [email or web address]
[2021-11-14 15:23] LABS: Alanine Aminotransferase 101 units/L (7-56); Albumin 3.6 g/dL (3.9-5); BUN/Creatinine Ratio 13; Blood Urea Nitrogen 17 mg/dL (9-20); Hemolysis Index 8
--- NOTE | 2021-11-14 17:34 | Emergency Department Report ---
HPI - General Chief Complaint: Chest Pain Time Seen by Provider: 11/14/21 16:50 - HPI HPI: For the last week the patient has been experiencing dyspnea on exertion as well as orthopnea and increasing edema of his left lower extremity. He has had increased edema of his left lower extremity for years and usually gets better on diuretics. He is currently homeless and has not had access to any of his medicines for a while now. He reports also with this a generalized sensation of chest pressure that been constant there for the last week. He denies nausea vomiting diaphoresis fever chills focal weakness headache or any other associated symptoms. Exercise makes it worse and nothing makes it better. Has not taken any medications for this. ED Past Medical Hx - Past Medical History Previous Medical History?: Yes Hx Hypertension: Yes Hx Congestive Heart Failure: Yes Hx Arthritis: Yes - Surgical History Past Surgical History?: Yes - Social History Smoking Status: Former Smoker Substance Use Type: None - Medications Home Medications: Home Medications Medication Instructions Recorded Confirmed Last Taken Type Oxycodone HCl/Acetaminophen 1 each PO Q6HR PRN #20 tablet 07/17/15 05/31/20 05/29/20 Rx [Percocet 10/325 mg] Albuterol Mdi (or & Nicu Only) 1 puff IH Q4-6H PRN #1 inha 05/07/20 05/31/20 Unknown Rx [ProAir HFA Inhaler] Aspirin [Aspirin BABY CHEW TAB] 81 mg PO QDAY #30 tab.chew 06/02/20 Unknown Rx Furosemide [Lasix TAB] 40 mg PO BID #60 tablet 06/02/20 Unknown Rx Losartan [Cozaar] 25 mg PO QDAY #30 tablet 06/02/20 Unknown Rx Metoprolol Xl [Metoprolol 50 mg PO QDAY #30 tablet 06/02/20 Unknown Rx SUCCINATE ER TAB] Furosemide [Lasix TAB] 40 mg PO BID #60 tablet 10/31/21 Unknown Rx Losartan [Cozaar] 25 mg PO QDAY #30 tablet 10/31/21 Unknown Rx Metoprolol [Lopressor TAB] 25 mg PO BID #60 tablet 10/31/21 Unknown Rx Furosemide [Lasix TAB] 20 mg PO QDAY PRN 7 Days #7 tablet 11/14/21 Unknown Rx Losartan [Cozaar] 25 mg PO QDAY 30 Days #30 tablet 11/14/21 Unknown Rx ED Review of Systems ROS: Stated complaint: PUNEET/LEG SWOLLEN Other details as noted in HPI Other: All other systems reviewed and negative. Physical Exam - Physical Exam Vital Signs: Vital Signs 11/14/21 09:30 Temperature 98 F Pulse Rate 84 Respiratory 16 Rate Blood Pressure 166/99 [Left] O2 Sat by Pulse 96 Oximetry Physical Exam: Physical Exam: Constitutional: AAOX3. No acute distress. No diaphoresis. HENT: Normocephalic. Pupils equal and reactive. No throat edema or erythema. Neck: No neck rigidity or tenderness. Cardiovascular: Heart sounds: No murmur. Normal rate and regular rhythm. Pulses: Intact distal pulses. Lungs: No wheezing or rales. Chest wall: No tenderness. Abdominal: No distension. No mass/pulsatile mass. No abdominal tenderness, guarding nor rebound. Musculoskeletal: Normal range of motion. There is edema of the left lower extremity which is pitting and +1. There is no calf tenderness palpation. Skin: Warm and dry. Neurological: Alert and oriented to person, place, and time. Psychiatric: Mood and affect normal. Normal cognition and memory. Normal judgement. ED Course Vital Signs 11/14/21 09:30 Temperature 98 F Pulse Rate 84 Respiratory 16 Rate Blood Pressure 166/99 [Left] O2 Sat by Pulse 96 Oximetry - Reevaluation(s) Reevaluation #1: 11/14/21 17:55 EKG done interpreted at 1005 shows a rate of 90, normal. The rhythm is sinus rhythm, normal. There is probable left atrial enlargement with lateral leads abnormal T waves which are inverted. Reevaluation #2: 11/14/21 18:57 The patient's chest x-ray was within normal limits. His left lower extremity ultrasound also did not show any evidence of DVT. His chemistries cardiac enzymes also were negative and a repeat troponin was also negative. I will put him on oral Lasix for his left lower extremity to improve. He will return if any other issues arise otherwise follow-up with his PCP ED Medical Decision Making - Lab Data Result diagrams: 11/14/21 14:40 11/14/21 14:40 Critical care attestation.: If time is entered above; I have spent that time in minutes in the direct care of this critically ill patient, excluding procedure time. ED Disposition Clinical Impression: Dependent edema, Dyspnea, Pedal edema Disposition: 01 HOME / SELF CARE / HOMELESS Is pt being admited?: No Does the pt Need Aspirin: No Condition: Stable Instructions: Shortness of Breath, Adult, [id number], Edema, [id number] Prescriptions: Furosemide [Lasix TAB] 20 mg PO QDAY PRN 7 Days #7 tablet PRN Reason: swelling Referrals: PRIMARY CARE, [Primary Care Provider] - 3-5 Days Time of Disposition: 19:00 Print Language: KHMER
--- NOTE | 2021-11-14 18:31 | Vascular Lab Report ---
DUPLEX DOPPLER LOWER EXTREMITY VEINS, LEFT INDICATION: EDEMA. TECHNIQUE: Duplex doppler imaging was performed through the veins of the left lower extremity using venous compr ession and other maneuvers. COMPARISON: No relevant prior imaging study available. FINDINGS: Left Common femoral vein: Negative. Left Superficial femoral vein: Negative. Left Popliteal vein: Negative. Left Calf veins: Negative. Additional findings: None.. IMPRESSION: 1. No sonographic evidence for DVT in the left lower extremity. Signer Name: Carter Lorenzo MD Signed: 11/14/2021 6:26 PM Workstation Name: [id number]
[2021-11-14] MEDS ORDERED: FUROSEMIDE 20 MG TAB PO ONE (18:56)
[2021-11-14 19:28] VITALS: BP 169/99
== END 2021-11-14 19:27 | disposition home or self-care (01) ==
LOC: ED 08:18
DX: R60.9 Edema, unspecified (principal); R06.00 Dyspnea, unspecified; I10 Essential (primary) hypertension; Z87.891 Personal history of nicotine dependence
CPT/HCPCS: 36415; 71046; 80053; 83880; 84484; 85027; 93005; 99284

== ENCOUNTER 2021-11-18 05:40 | Emergency (ER) | payer SELFPAY ==
[2021-11-18 07:20] LABS: Basophils % (Auto) 0.7 % (0.0-1.8); Eosinophils # (Auto) 0.1 K/mm3 (0.0-0.4); Eosinophils % (Auto) 1.3 % (0.0-4.3); Hematocrit 38.9 % (35.5-45.6); Lymphocytes # (Auto) 0.9 K/mm3 (1.2-5.4); Lymphocytes % (Auto) 15.2 % (13.4-35.0); Mean Corpuscular HGB Conc 33 % (32-34); Mean Corpuscular Volume 88 fl (84-94); Monocytes # (Auto) 0.6 K/mm3 (0.0-0.8); Monocytes % (Auto) 9.9 % (0.0-7.3); Platelet Count 161 K/mm3 (140-440); Red Blood Count 4.41 M/mm3 (3.65-5.03); Red Cell Distribution Width 13.6 % (13.2-15.2)
[2021-11-18 07:47] LABS: Alanine Aminotransferase 49 units/L (7-56); BUN/Creatinine Ratio 11; Blood Urea Nitrogen 16 mg/dL (9-20); Calcium 9.3 mg/dL (8.4-10.2); Hemolysis Index 4
--- NOTE | 2021-11-18 07:57 | XRay Report ---
CHEST 2 VIEWS INDICATION / CLINICAL INFORMATION: CHEST PAIN. COMPARISON: Chest x-ray 11/14/2021 FINDINGS: SUPPORT DEVICES: None. HEART / MEDIASTINUM: No significant abnormality. LUNGS / PLEURA: No significant pulmonary or pleural abnormality. No pneumothorax. BONES: No significant osseous abnormality. ADDITIONAL FINDINGS: No significant additional findings. IMPRESSION: 1. No active cardiopulmonary disease. Signer Name: Bruce Carvalho II, MD Signed: 11/18/2021 7:52 AM Workstation Name: [id number]
--- NOTE | 2021-11-18 10:45 | Electrocardiograph Report ---
[facility] Test Date: 2021-11-18 Test Time: 05:56:34 Pat Name: JULIEN DEL RIO Department: Room: Gender: M Information Director: MIKE : 1960 Requested By: ED DOC Order Number: [id number] Reading MD: Chaparro Macedo Measurements Intervals Banks Rate: 91 P: 71 CT: 139 QRS: 31 QRSD: 85 T: 55 QT: 394 QTc: 485 Interpretive Statements Sinus rhythm Probable left atrial enlargement Nonspecific T abnormalities, lateral leads Compared to ECG 11/14/2021 10:05:58 Possible ischemia no longer present T-wave abnormality still present Electronically Signed On 11-18-2021 10:45:23 EDT by Chaparro Macedo
--- NOTE | 2021-11-19 07:47 | Emergency Department Report ---
<BERTO CAO - Last Filed: 11/20/21 20:38> ED General Adult HPI - General Chief complaint: Chest Pain Stated complaint: CHEST PAIN Time Seen by Provider: 11/19/21 07:32 - Related Data Previous Rx's Medication Instructions Recorded Last Taken Type Albuterol Mdi (or & Nicu Only) 1 puff IH Q4-6H PRN #1 inha 05/07/20 Unknown Rx [ProAir HFA Inhaler] Aspirin [Aspirin BABY CHEW TAB] 81 mg PO QDAY #30 tab.chew 06/02/20 Unknown Rx Furosemide [Lasix TAB] 40 mg PO BID #60 tablet 06/02/20 Unknown Rx Losartan [Cozaar] 25 mg PO QDAY #30 tablet 06/02/20 Unknown Rx Losartan [Cozaar] 25 mg PO QDAY #30 tablet 10/31/21 Unknown Rx Metoprolol [Lopressor TAB] 25 mg PO BID #60 tablet 10/31/21 Unknown Rx Furosemide [Lasix TAB] 20 mg PO QDAY PRN 7 Days #7 tablet 11/14/21 Unknown Rx Rivaroxaban [Xarelto] 15 mg PO BID 21 Days #42 tablet 11/20/21 Unknown Rx Rivaroxaban [Xarelto] 20 mg PO QDAY 30 Days #30 tab 11/20/21 Unknown Rx Sertraline [Zoloft] 25 mg PO QDAY 30 Days #30 tab 11/20/21 Unknown Rx traZODone [Desyrel] 50 mg PO QHS 30 Days #30 tab 11/20/21 Unknown Rx Furosemide [Lasix TAB] 40 mg PO BID #60 tablet 11/21/21 Unknown Rx Losartan [Cozaar] 25 mg PO QDAY 30 Days #30 tablet 11/21/21 Unknown Rx Metoprolol Xl [Metoprolol 50 mg PO QDAY #30 tablet 11/21/21 Unknown Rx SUCCINATE ER TAB] Allergies Allergy/AdvReac Type Severity Reaction Status Date / Time ibuprofen [From Motrin] Allergy Nausea Verified 07/17/15 08:49 ED Past Medical Hx - Medications Home Medications: Home Medications Medication Instructions Recorded Confirmed Last Taken Type Albuterol Mdi (or & Nicu Only) 1 puff IH Q4-6H PRN #1 inha 05/07/20 05/31/20 Unknown Rx [ProAir HFA Inhaler] Aspirin [Aspirin BABY CHEW TAB] 81 mg PO QDAY #30 tab.chew 06/02/20 Unknown Rx Furosemide [Lasix TAB] 40 mg PO BID #60 tablet 06/02/20 Unknown Rx Losartan [Cozaar] 25 mg PO QDAY #30 tablet 06/02/20 Unknown Rx Losartan [Cozaar] 25 mg PO QDAY #30 tablet 10/31/21 Unknown Rx Metoprolol [Lopressor TAB] 25 mg PO BID #60 tablet 10/31/21 Unknown Rx Furosemide [Lasix TAB] 20 mg PO QDAY PRN 7 Days #7 tablet 11/14/21 Unknown Rx Rivaroxaban [Xarelto] 15 mg PO BID 21 Days #42 tablet 11/20/21 Unknown Rx Rivaroxaban [Xarelto] 20 mg PO QDAY 30 Days #30 tab 11/20/21 Unknown Rx Sertraline [Zoloft] 25 mg PO QDAY 30 Days #30 tab 11/20/21 Unknown Rx traZODone [Desyrel] 50 mg PO QHS 30 Days #30 tab 11/20/21 Unknown Rx Furosemide [Lasix TAB] 40 mg PO BID #60 tablet 11/21/21 Unknown Rx Losartan [Cozaar] 25 mg PO QDAY 30 Days #30 tablet 11/21/21 Unknown Rx Metoprolol Xl [Metoprolol 50 mg PO QDAY #30 tablet 11/21/21 Unknown Rx SUCCINATE ER TAB] ED Course - Reevaluation(s) Reevaluation #4: 11/20/21 15:47 Patient was reevaluated. Patient has been psych cleared as well. Patient does have DVT and will be sent home with Xarelto prescription. He should follow-up with primary care. ED Medical Decision Making - Lab Data Result diagrams: 11/19/21 13:28 11/19/21 13:28 ED Disposition Clinical Impression: Left leg swelling, Auditory hallucinations, Suicidal ideation Chest pain Qualifiers: Chest pain type: unspecified Qualified Code(s): R07.9 - Chest pain, unspecified Deep vein thrombosis (DVT) of popliteal vein of left lower extremity Qualifiers: Chronicity: acute Qualified Code(s): I82.432 - Acute embolism and thrombosis of left popliteal vein Disposition: 01 HOME / SELF CARE / HOMELESS Is pt being admited?: No Does the pt Need Aspirin: No Condition: Stable Instructions: Rivaroxaban oral tablets, Nonspecific Chest Pain, Adult Additional Instructions: Professional and Agency Contacts To help [facility] (11/01) [place] Crisis Line: Suicide Prevention Line: Crisis Text Line: Text START to [phone] Emergency: 911 Outpatient COMMUNITY Behavioral Health Resources: [place]: [facility] [address] [place], [place] [address] [place]: [facility] [address] [place] [address] Wednesday thru Wednesday - 8am - 5pm Call to schedule an assessment for mental health and substance abuse programs [facility] Address: [address] [place] [address] Wednesday thru Wednesday- 7am-2pm [facility] Address: [address] [place] [address] Wednesday thru Wednesday: 8:30AM-5PM Prescriptions: traZODone [Desyrel] 50 mg PO QHS 30 Days #30 tab Rivaroxaban [Xarelto] 15 mg PO BID 21 Days #42 tablet Rivaroxaban [Xarelto] 20 mg PO QDAY 30 Days #30 tab Sertraline [Zoloft] 25 mg PO QDAY 30 Days #30 tab Referrals: PRIMARY CARE, [Primary Care Provider] - 3-5 Days <SUJATA ROBERTS - Last Filed: 11/21/21 13:20> ED General Adult HPI - General Source: patient Mode of arrival: Ambulatory Limitations: No Limitations - History of Present Illness Initial comments: 60 yo M with history of CHF and hypertension who now present with chest pressure associated with left lower leg swelling and pain. He reports that he is on d isability since his 2018. He says he has been hearing voices intermittently to hurt himself. The latest was yesterday when the voice asked him to hit his head on the pole and he did. He also mentioned that the voice have asked him to jump in front of a moving vehicle in the past. Pt denies any cough or palpitation. He says things has not been the same since the of his . No other modifying or associated factors reported. ED Review of Systems ROS: Stated complaint: CHEST PAIN Other details as noted in HPI Comment: All other systems reviewed and negative Cardiovascular: chest pain, edema (left lower leg ). denies: palpitations Psychiatric: auditory hallucinations, suicidal thoughts ED Past Medical Hx - Past Medical History Hx Hypertension: Yes Hx Congestive Heart Failure: Yes Hx Arthritis: Yes - Social History Smoking Status: Former Smoker Substance Use Type: None ED Physical Exam - General Limitations: No Limitations General appearance: alert, in no apparent distress - Head Head exam: Present: normal inspection - Eye Eye exam: Present: normal appearance Pupils: Present: normal accommodation - ENT ENT exam: Present: normal exam, normal orophraynx, mucous membranes moist - Neck Neck exam: Present: normal inspection, full ROM. Absent: tenderness - Respiratory Respiratory exam: Present: normal lung sounds bilaterally. Absent: respiratory distress, accessory muscle use - Cardiovascular Cardiovascular Exam: Present: regular rate, normal rhythm, normal heart sounds - GI/Abdominal GI/Abdominal exam: Present: soft, normal bowel sounds. Absent: tenderness - Extremities Exam Extremities exam: Present: tenderness (left calf with swellings and tenderness without erythema or warmth), pedal edema - Back Exam Back exam: Absent: tenderness - Neurological Exam Neurological exam: Present: alert, oriented X3 - Psychiatric Psychiatric exam: Present: normal affect, normal mood - Skin Skin exam: Present: warm, normal color ED Course Vital Signs 11/18/21 11/19/21 11/19/21 05:44 12:40 17:21 Temperature 98.5 F Pulse Rate 95 H 85 80 Respiratory 18 18 18 Rate Blood Pressure 170/94 145/69 Blood Pressure 145/65 [Left] O2 Sat by Pulse 99 99 99 Oximetry 11/19/21 11/20/21 11/20/21 20:11 03:49 09:59 Temperature 97.6 F 97.6 F 98.6 F Pulse Rate 82 81 80 Respiratory 18 16 18 Rate Blood Pressure Blood Pressure 151/99 165/103 149/80 [Left] O2 Sat by Pulse 99 99 98 Oximetry - Reevaluation(s) Reevaluation #1: 11/19/21 07:51 here with chest pain with left lower leg swellings and tenderness --with mentioned SI with auditory hallucination-- will go ahead and check routing pysch labs including thryoid profile for any correctable cause-- D-dimer to rule out any DVT or PE as a cause. EKG and troponin for cardiac etiology. CBC, CMP and UA for any infectious process or electrolyte abnormality. Reevaluation #2: 11/19/21 09:35 Noted with elevated D-dimer at 1968--worrisome for likely DVT and PE so we will go ahead and order Doppler ultrasound and CT angio chest to rule out PE-- Reevaluation #3: 11/19/21 13:10 Doppler ultrasound of the left lower leg shows acute DVT within the left popliteal and calf vein--we will go ahead and start blood thinner--will go ahead and start Xarelto 15 mg BID x the next 21 days -- considering this patient to be 1013-- ED Medical Decision Making - Lab Data Result diagrams: 11/19/21 13:28 11/19/21 13:28 Critical care attestation.: If time is entered above; I have spent that time in minutes in the direct care of this critically ill patient, excluding procedure time. ED Disposition Is pt being admited?: No Does the pt Need Aspirin: No
--- NOTE | 2021-11-19 10:51 | Vascular Lab Report ---
DUPLEX DOPPLER LOWER EXTREMITY VEINS, LEFT INDICATION / CLINICAL INFORMATION: Lower extremity swelling. TECHNIQUE: Duplex doppler imaging was performed through the veins of the left lower extremity using venous compr ession and other maneuvers. COMPARISON: 11/14/2021 FINDINGS: LEFT COMMON FEMORAL VEIN: Negative. LEFT FEMORAL VEIN: Negative. LEFT POPLITEAL VEIN: Acute thrombus. LEFT CALF VEINS: Acute thrombus. ADDITIONAL FINDINGS: None. IMPRESSION: 1. Acute DVT within the left popliteal and calf veins. The chemistry teacher reported these findings to the referring physician at the conclusion of the exam. Signer Name: Toby Pompa MD Signed: 11/19/2021 10:46 AM Workstation Name: [id number]
--- NOTE | 2021-11-19 11:24 | Cat Scan Report ---
CTA CHEST WITH CONTRAST INDICATION / CLINICAL INFORMATION: CP with elevated d-dimer 100 ML OMNI 350 . TECHNIQUE: Axial CT images were obtained through the chest after injection of IV contrast. 3 plane UT P and/or 3D reconstructions were produced. All CT scans at this location are performed using CT dose reduction for ALARA by means of automated exposure control. COMPARISON: None available. FINDINGS: PULMONARY EMBOLUS: None. THORACIC AORTA: No significant abnormality. HEART: No significant abnormality. CORONARY ARTERY CALCIFICATION: Absent -- None. MEDIASTINUM / FLORECITA: No significant abnormality. PLEURA: No pleural effusion. No pneumothorax. LUNGS: No acute air space or interstitial disease. ADDITIONAL FINDINGS: None. UPPER ABDOMEN: No acute findings. SKELETAL STRUCTURES: No significant osseous abnormality. IMPRESSION: 1. No CT evidence for pulmonary embolism. 2. No acute findings. Signer Name: Hernandez Angel MD Signed: 11/19/2021 11:20 AM Workstation Name: [id number]
--- NOTE | 2021-11-19 12:08 | Consultation ---
History of Present Illness - Reason for Consult Consult date: 11/19/21 Reason for consult: Mental health evaluation - History of Present Psychiatric Illness ED Note: 60 yo M with history of CHF and hypertension who now present with chest pressure associated with left lower leg swelling and pain. He reports that he is on disability since his 2018. He says he has been hearing voices intermittently to hurt himself. The latest was yesterday when the voice asked him to hit his head on the pole and he did. He also mentioned that the voice have asked him to jump in front of a moving vehicle in the past. Pt denies any cough or palpitation. He says things has not been the same since the of his . No other modifying or associated factors reported. The patient is a 60 year old male with history of cocaine use disorder, severe. The patient was seen today. In my encounter with the patient he is calm, alert and oriented x3. The patient reports on going depression and commanding auditory hallucinations x2 weeks. The patient states sobriety of 27 years but relapsed after the of his in 2018; he reports cocaine daily use, unable to specify amount but states " whatever I can get," he states he last used yesterday. The patient endorses suicidal ideation with a plan to " run into traffic, I'm tired of living like this." He reports commanding auditory hallucinations " voices telling me to harm myself." He denies visual hallucinations. PAST PSYCHIATRIC HISTORY: Diagnoses:cocaine use disorder, severe Suicide attempts or Self-harm behavior:Denies Prior psychiatric hospitalizations: Yes Substance Abuse history: Cocaine, alcohol Previous psychiatric medications tried: Outpatient treatment:Unknown PAST MEDICAL HISTORY: None reported or document Family Psychiatric History: None reported or documented SOCIAL HISTORY Marital Status: single Living Arrangements: Homeless Employment Status:Disabled Access to guns/weapons: Denies Education:some 12th grade History of Abuse: Denies Legal History: Denies REVIEW OF SYSTEMS Constitutional: Negative for weight loss ENT: Negative for stridor Respiratory: Negative for cough or hemoptysis All other systems reviewed and are negative MENTAL STATUS EXAMINATION General Appearance and Behavior: Age appropriate, wearing appropriate clothes, cooperative, polite with questioning, good eye contact, calm, polite Cooperation: cooperative Psychomotor Behavior: Psychomotor normal Mood: Depressed Affect and affective range: Congruent with stated mood Thought Process: Goal directed Thought Content:suicidal Speech: Normal volume, Regular rate and rhythm Suicidal Ideation: Yes Homicidal Ideation: Denies Hallucination: Commanding Auditory Delusions: None Impulse Control: limited Insight and Judgment: Limited Memory: intact Attention: attentive Orientation: Alert and oriented Diagnoses: (1) Major depressive disorder (2)Cocaine use disorder, severe Treatment Plan 1013 Continue home meds Sertraline 25mg po daily Trazodone 50mg po QHS PSYCHOTHERAPY: Supportive psychotherapy provided MEDICAL: Per primary team DELIRIUM PRECAUTIONS: Please re-orient patient frequently, keep lights on during the day, and minimize benzodiazepines and opiates as these medications could worsen patient's confusion. OIL BURNER TECHNICIAN: Per medical team DISPOSITION: Recommend acute psychiatric inpatient treatment. Will follow. Thank you for the consult. Case staffed with Dr. Majano Medications and Allergies Medications and Allergies Allergies Allergy/AdvReac Type Severity Reaction Status Date / Time ibuprofen [From Motrin] Allergy Nausea Verified 07/17/15 08:49 Home Medications Medication Instructions Recorded Confirmed Last Taken Type Oxycodone HCl/Acetaminophen 1 each PO Q6HR PRN #20 tablet 07/17/15 05/31/20 05/29/20 Rx [Percocet 10/325 mg] Albuterol Mdi (or & Nicu Only) 1 puff IH Q4-6H PRN #1 inha 05/07/20 05/31/20 Unknown Rx [ProAir HFA Inhaler] Aspirin [Aspirin BABY CHEW TAB] 81 mg PO QDAY #30 tab.chew 06/02/20 Unknown Rx Furosemide [Lasix TAB] 40 mg PO BID #60 tablet 06/02/20 Unknown Rx Losartan [Cozaar] 25 mg PO QDAY #30 tablet 06/02/20 Unknown Rx Metoprolol Xl [Metoprolol 50 mg PO QDAY #30 tablet 06/02/20 Unknown Rx SUCCINATE ER TAB] Furosemide [Lasix TAB] 40 mg PO BID #60 tablet 10/31/21 Unknown Rx Losartan [Cozaar] 25 mg PO QDAY #30 tablet 10/31/21 Unknown Rx Metoprolol [Lopressor TAB] 25 mg PO BID #60 tablet 10/31/21 Unknown Rx Furosemide [Lasix TAB] 20 mg PO QDAY PRN 7 Days #7 tablet 11/14/21 Unknown Rx Losartan [Cozaar] 25 mg PO QDAY 30 Days #30 tablet 11/14/21 Unknown Rx Mental Status Exam - Vital signs Last Vital Signs Temp 98.5 F 11/18/21 05:44 Pulse 95 H 11/18/21 05:44 Resp 18 11/18/21 05:44 BP 170/94 11/18/21 05:44 Pulse Ox 99 11/18/21 05:44 Results Result Diagrams: 11/18/21 06:58 11/18/21 06:58 Abnormal lab results 11/18/21 11/19/21 Range/Units 08:59 07:53 D-Dimer 1680.69 H (0-234) ng/mlDDU NT-Pro-B Natriuret Pep 1968 H (0-900) pg/mL All other labs normal.
[2021-11-19 13:57] LABS: Mean Corpuscular HGB Conc 32 % (32-34); Mean Corpuscular Volume 90 fl (84-94); Platelet Count 154 K/mm3 (140-440); Red Blood Count 4.56 M/mm3 (3.65-5.03); Red Cell Distribution Width 13.6 % (13.2-15.2)
[2021-11-19 14:14] LABS: INR 0.87 (0.87-1.13)
[2021-11-19 14:15] LABS: Partial Thromboplastin Time 28.1 Sec. (24.2-36.6)
[2021-11-19] MEDS: SERTRALINE 25 MG TAB PO SCH (17:54)
[2021-11-19] MEDS: RIVAROXABAN 15 MG TAB PO SCH (17:54)
[2021-11-19] MEDS ORDERED: traZODone 50 MG TAB PO SCH (22:00)
[2021-11-20 10:09] VITALS: BP 149/80
[2021-11-20] MEDS: RIVAROXABAN 15 MG TAB PO SCH (10:16)
[2021-11-20] MEDS: SERTRALINE 25 MG TAB PO SCH (10:16)
--- NOTE | 2021-11-20 10:24 | Progress Note ---
Subjective - Reason for Consult Consult date: 11/20/21 Reason for consult: mental health evaluation - Chief Complaint Chief complaint: The patient was seen today. He reports feeling better " I need to find a social welfare clerk or trimming caser." The patient presents with appropriate affec, he denies any current suicidal/homicidal ideation and denies hallucinations. REVIEW OF SYSTEMS Constitutional: Negative for weight loss ENT: Negative for stridor Respiratory: Negative for cough or hemoptysis All other systems reviewed and are negative MENTAL STATUS EXAMINATION General Appearance and Behavior: Age appropriate, wearing appropriate clothes, cooperative, polite with questioning, good eye contact, calm, polite Cooperation: cooperative Psychomotor Behavior: Psychomotor normal Mood: OK Affect and affective range: Congruent with stated mood Thought Process: Goal directed Thought Content:reality oriented Speech: Normal volume, Regular rate and rhythm Suicidal Ideation: denies Homicidal Ideation: Denies Hallucination: Denies Delusions: None Impulse Control: limited Insight and Judgment: Limited Memory: intact Attention: attentive Orientation: Alert and oriented Diagnoses: (1) Major depressive disorder (2)Cocaine use disorder, severe Treatment Plan [id number] Case management Continue home meds Sertraline 25mg po daily Trazodone 50mg po QHS PSYCHOTHERAPY: Supportive psychotherapy provided MEDICAL: Per primary team DELIRIUM PRECAUTIONS: Please re-orient patient frequently, keep lights on during the day, and minimize benzodiazepines and opiates as these medications could worsen patient's confusion. AGRONOMY LOCATION MANAGER: Per medical team DISPOSITION: Do not recommend acute psychiatric inpatient treatment. Aquatic Habitat Biologist will provide patient with outpatient resources. Will sign off. Case staffed with Dr. Majano Medications and Allergies Mental Status Exam - Vital signs Last Vital Signs Temp 98.6 F 11/20/21 09:59 Pulse 80 11/20/21 09:59 Resp 18 11/20/21 09:59 BP 149/80 11/20/21 09:59 Pulse Ox 98 11/20/21 09:59
--- NOTE | 2021-11-21 08:57 | Electrocardiograph Report ---
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
[2021-12-11] MEDS ORDERED: RIVAROXABAN 20 MG TAB PO SCH (17:00)
== END 2021-11-20 17:04 | disposition home or self-care (01) ==
LOC: EEVIPCON 05:40 → ED 05:40
DX: M79.89 Other specified soft tissue disorders (principal); R44.0 Auditory hallucinations; R45.851 Suicidal ideations; R07.9 Chest pain, unspecified; I82.432 Acute embolism and thrombosis of left popliteal vein; Z88.6 Allergy status to analgesic agent; Z20.822 Contact with and (suspected) exposure to COVID-19
CPT/HCPCS: 36415; 71046; 71275; 80053; 82565; 83735; 83880; 84100; 84484; 85025; 85027; 85379; 85610; 85730; 93005; 93971; 99285; Q9967; U0003

== ENCOUNTER 2021-11-21 01:07 | Emergency (ER) | payer SELFPAY ==
[2021-11-21] MEDS ORDERED: METOPROLOL TARTRATE 25 MG TAB PO STA (06:50)
[2021-11-21] MEDS ORDERED: FUROSEMIDE 40 MG TAB PO STA (06:50)
[2021-11-21] MEDS ORDERED: LOSARTAN 25 MG TAB PO STA (06:50)
[2021-11-21] MEDS ORDERED: RIVAROXABAN 15 MG PO STA (06:50)
[2021-11-21] MEDS ORDERED: NON-FORMULARY EACH (Rivaroxaban 20 MG Tablet) PO STA (06:50)
--- NOTE | 2021-11-21 06:51 | Emergency Department Report ---
ED General Adult HPI - General Chief complaint: Medical Clearance Stated complaint: medical clearance Time Seen by Provider: 11/21/21 06:06 Source: patient, EMS ( EMS documentation not available at time of chart dictation ), RN notes reviewed, old records reviewed Mode of arrival: Ambulatory Limitations: No Limitations - History of Present Illness Initial comments: The patient was evaluated in the emergency department for symptoms described in the history of present illness. He/she was evaluated in the context of the global COVID-19 pandemic, which necessitated consideration that the patient might be at risk for infection with the virus that causes COVID-19. Institutional protocols and algorithms that pertain to the evaluation of patients at risk for COVID-19 are in a state of rapid change based on information released by regulatory bodies including the CDC and federal and state organizations. These policies and algorithms were followed during the patient's care in the emergency department. Please note that these policies, procedures and recommendations changed on a rapid basis. This patient is a 60-year-old gentleman who presents to the department today with a request for medical clearance. The patient was recently seen in this department for nonspecific chest pain and psychiatric symptoms. He had a CTA chest which is negative for PE a few days ago, and a lower extremity DVT study which demonstrated a popliteal and calf vein DVT. He was started on appropriate medications. He was given prescriptions for appropriate medications. He also complains of nonspecific psychiatric symptoms, and was seen by our psychiatry team, who advised discharge. The patient presents today because he reports that he went to an outpatient psychiatric facility, and they stated that his blood pressure was too high. He denies physical pain at this time. He denies homicidality, suicidality, and overdose. He has been intermittently compliant with his medications that were recently prescribed. He reports that he had constant central chest wall pain yesterday, which did not radiate to the back, arms or neck, and is now resolved. -: days(s) Improves with: none Worsens with: none Associated Symptoms: denies other symptoms - Related Data Previous Rx's Medication Instructions Recorded Last Taken Type Albuterol Mdi (or & Nicu Only) 1 puff IH Q4-6H PRN #1 inha 05/07/20 Unknown Rx [ProAir HFA Inhaler] Aspirin [Aspirin BABY CHEW TAB] 81 mg PO QDAY #30 tab.chew 12/13/20 Unknown Rx Furosemide [Lasix TAB] 40 mg PO BID #60 tablet 06/02/20 Unknown Rx Losartan [Cozaar] 25 mg PO QDAY #30 tablet 06/02/20 Unknown Rx Losartan [Cozaar] 25 mg PO QDAY #30 tablet 10/31/21 Unknown Rx Metoprolol [Lopressor TAB] 25 mg PO BID #60 tablet 10/31/21 Unknown Rx Furosemide [Lasix TAB] 20 mg PO QDAY PRN 7 Days #7 tablet 11/14/21 Unknown Rx Rivaroxaban [Xarelto] 15 mg PO BID 21 Days #42 tablet 11/20/21 Unknown Rx Rivaroxaban [Xarelto] 20 mg PO QDAY 30 Days #30 tab 11/20/21 Unknown Rx Sertraline [Zoloft] 25 mg PO QDAY 30 Days #30 tab 11/20/21 Unknown Rx traZODone [Desyrel] 50 mg PO QHS 30 Days #30 tab 11/20/21 Unknown Rx Furosemide [Lasix TAB] 40 mg PO BID #60 tablet 11/21/21 Unknown Rx Losartan [Cozaar] 25 mg PO QDAY 30 Days #30 tablet 11/21/21 Unknown Rx Metoprolol Xl [Metoprolol 50 mg PO QDAY #30 tablet 11/21/21 Unknown Rx SUCCINATE ER TAB] Allergies Allergy/AdvReac Type Severity Reaction Status Date / Time ibuprofen [From Motrin] Allergy Nausea Verified 07/17/15 08:49 ED Review of Systems ROS: Stated complaint: CHEST PAIN & GROIN PAIN Other details as noted in HPI Constitutional: denies: fever Eyes: denies: eye discharge ENT: denies: epistaxis Respiratory: denies: wheezing Cardiovascular: chest pain. denies: syncope Gastrointestinal: denies: abdominal pain Psychiatric: denies: auditory hallucinations, visual hallucinations, homicidal thoughts, suicidal thoughts ED Past Medical Hx - Past Medical History Previous Medical History?: Yes Hx Hypertension: Yes Hx Congestive Heart Failure: Yes Hx Arthritis: Yes - Surgical History Past Surgical History?: No - Social History Smoking Status: Unknown if ever smoked - Medications Home Medications: Home Medications Medication Instructions Recorded Confirmed Last Taken Type Albuterol Mdi (or & Nicu Only) 1 puff IH Q4-6H PRN #1 inha 05/07/20 05/31/20 Unknown Rx [ProAir HFA Inhaler] Aspirin [Aspirin BABY CHEW TAB] 81 mg PO QDAY #30 tab.chew 06/02/20 Unknown Rx Furosemide [Lasix TAB] 40 mg PO BID #60 tablet 06/02/20 Unknown Rx Losartan [Cozaar] 25 mg PO QDAY #30 tablet 06/02/20 Unknown Rx Losartan [Cozaar] 25 mg PO QDAY #30 tablet 10/31/21 Unknown Rx Metoprolol [Lopressor TAB] 25 mg PO BID #60 tablet 10/31/21 Unknown Rx Furosemide [Lasix TAB] 20 mg PO QDAY PRN 7 Days #7 tablet 11/14/21 Unknown Rx Rivaroxaban [Xarelto] 15 mg PO BID 21 Days #42 tablet 11/20/21 Unknown Rx Rivaroxaban [Xarelto] 20 mg PO QDAY 30 Days #30 tab 11/20/21 Unknown Rx Sertraline [Zoloft] 25 mg PO QDAY 30 Days #30 tab 11/20/21 Unknown Rx traZODone [Desyrel] 50 mg PO QHS 30 Days #30 tab 11/20/21 Unknown Rx Furosemide [Lasix TAB] 40 mg PO BID #60 tablet 11/21/21 Unknown Rx Losartan [Cozaar] 25 mg PO QDAY 30 Days #30 tablet 11/21/21 Unknown Rx Metoprolol Xl [Metoprolol 50 mg PO QDAY #30 tablet 11/21/21 Unknown Rx SUCCINATE ER TAB] ED Physical Exam - General Limitations: No Limitations General appearance: alert, in no apparent distress - Head Head exam: Present: atraumatic, normocephalic - Eye Eye exam: Present: normal appearance, EOMI. Absent: nystagmus - ENT ENT exam: Present: normal exam, normal orophraynx, mucous membranes moist, normal external ear exam - Neck Neck exam: Present: normal inspection, full ROM. Absent: tenderness, meningismus - Respiratory Respiratory exam: Present: normal lung sounds bilaterally. Absent: respiratory distress, wheezes, rales, rhonchi, stridor, decreased breath sounds - Cardiovascular Cardiovascular Exam: Present: regular rate, normal rhythm, normal heart sounds. Absent: bradycardia, tachycardia, irregular rhythm, systolic murmur, diastolic murmur, rubs, gallop - GI/Abdominal GI/Abdominal exam: Present: soft. Absent: distended, tenderness, guarding, rebound, rigid, pulsatile mass - Rectal Rectal exam: Present: deferred - Extremities Exam Extremities exam: Present: normal inspection, full ROM, pedal edema, other (2+ pulses noted in the bilateral upper and lower extremities. There is no palpable cord. negative Homans sign. Muscular compartments are soft. The pelvis is stable.). Absent: calf tenderness - Back Exam Back exam: Present: normal inspection. Absent: tenderness, CVA tenderness (R), CVA tenderness (L), paraspinal tenderness, vertebral tenderness - Neurological Exam Neurological exam: Present: alert, oriented X3, other (No facial droop. Tongue midline. Extraocular movements intact bilaterally. Facial sensation intact to light touch in V1, V2, V3 distribution bilaterally. 5 and a 5 strength in 4 extremities. Sensation intact to light touch in 4 extremities.). Absent: motor sensory deficit - Psychiatric Psychiatric exam: Present: normal affect, normal mood. Absent: homicidal ideation, suicidal ideation - Skin Skin exam: Present: warm, dry, intact, normal color. Absent: rash ED Course Vital Signs 11/21/21 11/21/21 11/21/21 01:22 07:08 08:14 Temperature 98.4 F Pulse Rate 74 80 Respiratory 18 Rate Blood Pressure 162/79 152/90 O2 Sat by Pulse 98 Oximetry O2 Sat by Pulse 99 Oximetry [ Digit-Finger] - Pulse Oximetry Interpretation Digit-Finger Initial Pulse Oximetry Readin O2 Sat by Pulse Oximetry: 99 Actions Taken: none ED Medical Decision Making - Lab Data Result diagrams: 11/21/21 07:09 11/21/21 07:09 Vital Signs 11/21/21 11/21/21 01:22 07:08 Temperature 98.4 F Pulse Rate 74 80 Respiratory 18 Rate Blood Pressure 162/79 152/90 O2 Sat by Pulse 98 Oximetry - EKG Data -: EKG Interpreted by Nh EKG shows normal: sinus rhythm Rate: normal - EKG Data 11/21/21 07:40 The EKG is interpreted at 07: 4 0 This is a sinus rhythm, with a rate of 77 bpm. There is a borderline leftward axis deviation, there is atrial enlargement, and left ventricular hypertrophy. There is motion artifact. This is an abnormal EKG. This is not a STEMI. This EKG appears to be essentially unchanged when compared to prior EKG from 2021, - Radiology Data Radiology results: pending, report reviewed, image reviewed [address] [address] Vascular Lab Report Signed Patient: JULIEN DEL RIO MR#: [id number] : 1960 Acct:[id number] Age/Sex: 60 / M ADM Date: 11/18/21 Loc: ED Attending Dr: Ordering Physician: SUJATA ROBERTS Date of Service: 11/19/21 Procedure(s): VL venous duplex LE LT Accession Number(s): [id number] cc: SUJATA ROBERTS DUPLEX DOPPLER LOWER EXTREMITY VEINS, LEFT INDICATION / CLINICAL INFORMATION: Lower extremity swelling. TECHNIQUE: Duplex doppler imaging was performed through the veins of the left lower extremity using venous compression and other maneuvers. COMPARISON: 11/14/2021 FINDINGS: LEFT COMMON FEMORAL VEIN: Negative. LEFT FEMORAL VEIN: Negative. LEFT POPLITEAL VEIN: Acute thrombus. LEFT CALF VEINS: Acute thrombus. ADDITIONAL FINDINGS: None. IMPRESSION: 1. Acute DVT within the left popliteal and calf veins. The marketing database analyst reported these findings to the referring physician at the conclusion of the exam. Signer Name: Toby Pompa MD Signed: 11/19/2021 10:46 AM Workstation Name: [id number] Transcribed By: Dictated By: Toby Pompa MD Electronically Authenticated By: Toby Pompa MD Signed Date/Time: 11/19/21 1046 DD/ [address] [address] Cat Scan Report Signed Patient: JULIEN DEL RIO MR#: [id number] : 1960 Acct:[id number] Age/Sex: 60 / M ADM Date: 11/18/21 Loc: ED Attending Dr: Ordering Physician: SUJATA ROBERTS Date of Service: 11/19/21 Procedure(s): CT angio chest Accession Number(s): [id number] cc: SUJATA ROBERTS CTA CHEST WITH CONTRAST INDICATION / CLINICAL INFORMATION: CP with elevated d-dimer 100 ML OMNI 350 . TECHNIQUE: Axial CT images were obtained through the chest after injection of IV contrast. 3 plane MIP and/or 3D reconstructions were produced. All CT scans at this location are performed using CT dose reduction for ALARA by means of automated exposure control. COMPARISON: None available. FINDINGS: PULMONARY EMBOLUS: None. THORACIC AORTA: No significant abnormality. HEART: No significant abnormality. CORONARY ARTERY CALCIFICATION: Absent -- None. MEDIASTINUM / FLORECITA: No significant abnormality. PLEURA: No pleural effusion. No pneumothorax. LUNGS: No acute air space or interstitial disease. ADDITIONAL FINDINGS: None. UPPER ABDOMEN: No acute findings. SKELETAL STRUCTURES: No significant osseous abnormality. IMPRESSION: 1. No CT evidence for pulmonary embolism. 2. No acute findings. Signer Name: Hernandez Angel MD Signed: 11/19/2021 11:20 AM Workstation Name: [id number] Transcribed By: JOVANY Dictated By: Hernanedz Angel MD Electronically Authenticated By: Hernandez Angel MD Signed Date/Time: 11/19/21 1120 DD/ 18 [facility] [address] [place] [address] XRay Report Signed Patient: JULIEN DEL RIO MR#: [id number] : 1960 Acct:[id number] Age/Sex: 60 / M ADM Date: 11/18/21 Loc: ED Attending Dr: Ordering Physician: SOULEYMANE SOLO MD Date of Service: 11/18/21 Procedure(s): XR chest routine 2V Accession Number(s): [id number] cc: ED MD EDIL Fluoro Time In Minutes: CHEST 2 VIEWS INDICATION / CLINICAL INFORMATION: CHEST PAIN. COMPARISON: Chest x-ray 11/14/2021 FINDINGS: SUPPORT DEVICES: None. HEART / MEDIASTINUM: No significant abnormality. LUNGS / PLEURA: No significant pulmonary or pleural abnormality. No pneumothorax. BONES: No significant osseous abnormality. ADDITIONAL FINDINGS: No significant additional findings. IMPRESSION: 1. No active cardiopulmonary disease. Signer Name: Darin Zapata II, MD Signed: 11/18/2021 7:52 AM Workstation Name: [id number] Transcribed By: JOSHUA Dictated By: DARIN ZAPATA II, MD Electronically Authenticated By: DARIN ZAPATA II, MD Signed Date/Time: 11/18/21 075 DD/ 1 - Medical Decision Making Differential diagnosis, including not limited to: Hypertension, medical screening examination, behavioral health screening examination Assessment and plan: 60-year-old gentleman, who is afebrile, with reassuring vital signs, clinically sober, with a GCS of 15, who is not currently tachycardic, tachypneic or hypoxic, who does not meet criteria for 1013 hold or involuntary confinement, presenting essentially for medical clearance and medical screening examination. Laboratory studies are essentially nonactionable. Troponin negative x1, has essentially been chest pain-free for at least 12 hours. EKG unchanged from prior, and on my initial assessment, the patient is sleeping comfortably in his stretcher, saturating 100% on room air, and in no acute distress. He had a thorough and recent extensive work-up performed in this department, CT scan of the chest is negative for acute findings. Hypertension is chronic, and not acutely decompensated. We will continue the patient's current outpatient blood pressure medications. He was recently provided prescriptions for his lower extremity DVT by one of my colleagues. He is low risk for major adverse cardiac event as per heart score. He does not appear to have an emergent medical or psychiatric condition at this time. We will refill his antihypertensive therapy, and he may be discharged to follow-up as an outpatient with resources. He is observed in this department for hours without clinical decompensation Critical care attestation.: If time is entered above; I have spent that time in minutes in the direct care of this critically ill patient, excluding procedure time. ED Disposition Clinical Impression: Nonspecific chest pain, Elevated blood pressure reading, Medication refill, Encounter for behavioral health screening Disposition: 01 HOME / SELF CARE / HOMELESS Is pt being admited?: No Does the pt Need Aspirin: No Condition: Good Instructions: Rivaroxaban oral tablets, Nonspecific Chest Pain, Adult Additional Instructions: Please take the prescribed blood pressure medications as directed. Please continue the Xarelto prescriptions that were recently provided for the patient. Please follow-up with an outpatient console assembler within the next week. Please follow-up with an outpatient primary care doctor within the next 2 weeks. He is to follow-up with the outpatient resources that were recently provided to the patient. The patient is not found to have an emergent medical or psychiatric co ndition while present here in the emergency room today. Patient will receive a good Rx affordable prescription card. Please return to the emergency room right away with new pain, worsened pain, migration of pain, projectile vomiting, change in mental status, confusion, inability tolerate liquid feeds, new, worsened or different symptoms not present on the initial emergency room evaluation Prescriptions: Losartan [Cozaar] 25 mg PO QDAY 30 Days #30 tablet Furosemide [Lasix TAB] 40 mg PO BID #60 tablet Metoprolol Xl [Metoprolol SUCCINATE ER TAB] 50 mg PO QDAY #30 tablet Referrals: [facility] [Provider Group] - 3-5 Days [facility] [Provider Group] - 3-5 Days
[2021-11-21 07:09] VITALS: BP 152/90
[2021-11-21 07:19] LABS: Hematocrit 43.4 % (35.5-45.6); Hemoglobin 14.2 gm/dl (11.8-15.2); Mean Corpuscular HGB Conc 33 % (32-34); Mean Corpuscular Volume 89 fl (84-94); Platelet Count 156 K/mm3 (140-440); Red Blood Count 4.89 M/mm3 (3.65-5.03); Red Cell Distribution Width 13.5 % (13.2-15.2)
[2021-11-21] MEDS ORDERED: RIVAROXABAN 15 MG TAB PO STA (07:20)
[2021-11-21 07:44] LABS: BUN/Creatinine Ratio 11; Blood Urea Nitrogen 12 mg/dL (9-20); Calcium 9.2 mg/dL (8.4-10.2); Hemolysis Index 6
[2021-11-21] MEDS ORDERED: RIVAROXABAN 20 MG TAB PO SCH (17:00)
== END 2021-11-21 09:00 | disposition home or self-care (01) ==
LOC: ED 01:07
DX: R07.89 Other chest pain (principal); Z76.0 Encounter for issue of repeat prescription; I10 Essential (primary) hypertension; Z13.30 Encounter for screening examination for mental health and behavioral disorders, unspecified; I11.0 Hypertensive heart disease with heart failure; I50.9 Heart failure, unspecified; M19.90 Unspecified osteoarthritis, unspecified site; Z91.09 Other allergy status, other than to drugs and biological substances; Z79.899 Other long term (current) drug therapy
CPT/HCPCS: 36415; 80048; 80320; 84484; 85027; 93005; 99284; G0480

== ENCOUNTER 2022-01-08 11:02 | Emergency (ER) | payer SELFPAY ==
[2022-01-08 12:37] LABS: Basophils % (Auto) 0.6 % (0.0-1.8); Eosinophils # (Auto) 0.1 K/mm3 (0.0-0.4); Eosinophils % (Auto) 1.9 % (0.0-4.3); Hematocrit 38.1 % (35.5-45.6); Hemoglobin 12.6 gm/dl (11.8-15.2); Lymphocytes % (Auto) 17.6 % (13.4-35.0); Mean Corpuscular HGB Conc 33 % (32-34); Mean Corpuscular Volume 87 fl (84-94); Monocytes # (Auto) 0.4 K/mm3 (0.0-0.8); Monocytes % (Auto) 7.4 % (0.0-7.3); Platelet Count 157 K/mm3 (140-440); Red Blood Count 4.37 M/mm3 (3.65-5.03)
--- NOTE | 2022-01-08 12:44 | XRay Report ---
XR chest routine 2V INDICATION / CLINICAL INFORMATION: Chest Pain. COMPARISON: 11/18/2021 FINDINGS: SUPPORT DEVICES: None. HEART /PULMONARY VASCULATURE: No significant abnormality. LUNGS / PLEURA: No significant pulmonary or pleural abnormality. No pneumothorax. ADDITIONAL FINDINGS: No significant additional findings. IMPRESSION: 1. No acute findings. Signer Name: Jg Sargent MD Signed: 01/08/2022 12:39 PM Workstation Name: [id number]
[2022-01-08 12:45] LABS: INR 0.88 (0.87-1.13)
[2022-01-08 12:55] LABS: Alanine Aminotransferase 22 units/L (7-56); Albumin 3.9 g/dL (3.9-5); BUN/Creatinine Ratio 11; Blood Urea Nitrogen 11 mg/dL (9-20); Calcium 9.5 mg/dL (8.4-10.2); Hemolysis Index 6
--- NOTE | 2022-01-08 14:20 | Emergency Department Report ---
Blank Doc - Documentation Documentation: 61-year-old male who presents with chest pain. 1- This is a initial triage assessment/medical screening only. Full assessment and work-up will be completed once the patient is in proper hospital gown, ED bed and in a private room setting. This initial assessment/diagnostic or ders/clinical plan/ treatment(s) is/are subject to change based on pt's health status, clinical progression and re-assessment by fellow clinical providers in the ED. Further treatment and workup at subsequent clinical providers discretion. Patient/guardians urged not to elope from ED as their condition may be serious if not clinically assessed and managed. 2-cardiac workup The patient was evaluated in the emergency department for symptoms described in the history of present illness. He/she was evaluated in the context of the global COVID-19 pandemic, which necessitated consideration that the patient might be at risk for infection with the virus that causes COVID-19. Institutional protocols and algorithms that pertain to the evaluation of patients at risk for COVID-19 are in a state of rapid change based on information released by regulatory bodies including the CDC and federal and state organizations. These policies and algorithms were followed during the patient's care in the emergency department. Please note that these policies, procedures and recommendations changed on a rapid basis.
[2022-01-08] MEDS ORDERED: FUROSEMIDE 40 MG/4 ML INJ IV ONE (19:32)
--- NOTE | 2022-01-08 19:57 | Emergency Department Report ---
HPI - General Chief Complaint: Chest Pain PUI?: No Time Seen by Provider: 01/08/22 11:26 - HPI HPI: This patient is a 61-year-old male with multiple medical comorbidities who presents for evaluation of shortness of breath. Triage note endorses that the patient is complaining of chest pain but the patient clarifies to this provider that he feels chest "tightness" in the setting of feeling as though he is having problems breathing. He reports swelling in his lower extremities, left greater than right which she states is typical for him when he has flareup of his congestive heart failure. He states that he is not working and does not have a primary care doctor and so unless he comes to the ER, he does not have access to his routine medications. Patient also reports that several weeks ago he was seen in the emergency department and diagnosed with a left lower extremity DVT. He states he was discharged to home with oral anticoagulation but due to inability to afford these medications, he stopped taking them. Reports several days of worsening shortness of breath and difficulty breathing, primarily on exertion. He has not taken any pain medication for symptoms. He denies any upper respiratory tract infection symptoms. No recent prolonged travel history immobilization. Pain currently 0-10. ED Past Medical Hx - Past Medical History Hx Hypertension: Yes Hx Congestive Heart Failure: Yes Hx Arthritis: Yes Additional medical history: bronchitis - Social History Smoking Status: Former Smoker Substance Use Type: None - Medications Home Medications: Home Medications Medication Instructions Recorded Confirmed Last Taken Type Albuterol Mdi (or & Nicu Only) 1 puff IH Q4-6H PRN #1 inha 05/07/20 05/31/20 Unknown Rx [ProAir HFA Inhaler] Aspirin [Aspirin BABY CHEW TAB] 81 mg PO QDAY #30 tab.chew 06/02/20 Unknown Rx Losartan [Cozaar] 25 mg PO QDAY #30 tablet 10/31/21 Unknown Rx Furosemide [Lasix TAB] 20 mg PO QDAY PRN 7 Days #7 tablet 11/14/21 Unknown Rx Rivaroxaban [Xarelto] 15 mg PO BID 21 Days #42 tablet 11/20/21 Unknown Rx Sertraline [Zoloft] 25 mg PO QDAY 30 Days #30 tab 11/20/21 Unknown Rx traZODone [Desyrel] 50 mg PO QHS 30 Days #30 tab 11/20/21 Unknown Rx Furosemide [Lasix TAB] 40 mg PO BID #60 tablet 11/21/21 Unknown Rx Losartan [Cozaar] 25 mg PO QDAY 30 Days #30 tablet 11/21/21 Unknown Rx Metoprolol Xl [Metoprolol 50 mg PO QDAY #30 tablet 11/21/21 Unknown Rx SUCCINATE ER TAB] Furosemide [Lasix TAB] 40 mg PO BID #60 tablet 01/08/22 Unknown Rx Losartan [Cozaar] 25 mg PO QDAY #30 tablet 01/08/22 Unknown Rx Metoprolol [Lopressor TAB] 25 mg PO BID #60 tablet 01/08/22 Unknown Rx Rivaroxaban [Xarelto] 20 mg PO QDAY 30 Days #30 tab 01/08/22 Unknown Rx ED Review of Systems ROS: Stated complaint: SOB,CHEST PAIN,PAIN IN LEFT ARM HISTORY OF CHF Other details as noted in HPI Comment: All other systems reviewed and negative Constitutional: no symptoms reported Eyes: as per HPI ENT: as per HPI Respiratory: no symptoms reported, shortness of breath Cardiovascular: as per HPI, chest pain, dyspnea on exertion, edema Gastrointestinal: denies: abdominal pain, nausea, vomiting, diarrhea, constipation, hematemesis, melena, hematochezia Genitourinary: denies: urgency, dysuria, frequency, hematuria, discharge, testicular pain, testicular mass, other Musculoskeletal: denies: back pain, joint swelling, arthralgia, myalgia Skin: other (Edema to lower extremities, left greater than right). denies: rash, lesions, change in color, change in hair/nails, pruritus Neurological: denies: headache, weakness, numbness, paresthesias, confusion, abnormal gait, vertigo, other Psychiatric: denies: anxiety, depression, auditory hallucinations, visual hedrick ucinations, homicidal thoughts, suicidal thoughts Hematological/Lymphatic: denies: easy bleeding, easy bruising Physical Exam - Physical Exam Vital Signs: Vital Signs 01/08/22 01/08/22 01/08/22 11:17 16:54 17:01 Temperature 98.1 F Pulse Rate 90 102 H 104 H Respiratory 18 19 26 H Rate Blood Pressure 203/113 Blood Pressure 169/108 [Right] O2 Sat by Pulse 100 98 100 Oximetry 01/08/22 01/08/22 01/08/22 17:15 17:31 17:37 Temperature Pulse Rate 97 H 93 H Respiratory 20 19 Rate Blood Pressure 203/113 203/113 Blood Pressure [Right] O2 Sat by Pulse 100 100 98 Oximetry General: Gen: pt is well appearing, no acute distress HEENT: Normocephalic atraumatic pupils equally round and reactive to light ex traocular muscles intact sclera anicteric Neck: Full range of motion, no midline spinal tenderness palpation, no JVD, no carotid bruits, no nuchal rigidity CVS: S1-S2 regular rate and rhythm with no gallops rubs or murmurs, chest wall nontender Pulmonary: Clear to auscultation bilaterally, no wheezes rales or rhonchi Abdomen: Soft nondistended nontender no guarding or rebound tenderness, no palpable deformities or step-offs, normal active bowel sounds, no hepatosplenomegaly, no pulsatile masses : Deferred Extremities: No cyanosis no clubbing no edema, intact distal peripheral pulses,, patient has nonpitting edema to his left lower extremity, no visible edema to right lower extremity, Integumentary: Skin normal, no petechia no purpura no abscess no lacerations no evidence of trauma no evidence of infection Neuro: Patient is awake alert and oriented to person place time situation, menta ting well, cranial nerves II through XII intact, no focal neurodeficits, sensation grossly tact Psych: Calm cooperative, mood affect normal ED Course Vital Signs 01/08/22 01/08/22 01/08/22 11:17 16:54 17:01 Temperature 98.1 F Pulse Rate 90 102 H 104 H Respiratory 18 19 26 H Rate Blood Pressure 203/113 Blood Pressure 169/108 [Right] O2 Sat by Pulse 100 98 100 Oximetry 01/08/22 01/08/22 01/08/22 17:15 17:31 17:37 Temperature Pulse Rate 97 H 93 H Respiratory 20 19 Rate Blood Pressure 203/113 203/113 Blood Pressure [Right] O2 Sat by Pulse 100 100 98 Oximetry - Reevaluation(s) Reevaluation #1: 01/08/22 19:59 Patient is comfortable and well-appearing. He has been ordered for dose of furosemide intravenously for management of acute decompensated heart failure Reevaluation #2: 01/08/22 20:49 Patient is comfortable and well-appearing. States he has a follow-up appointment with his primary care doctor within 1 week. Patient is requesting to be given temporary refill of medications so that he will have medications to take while he is awaiting formal evaluation by his primary care doctor. As a courtesy prescriptions will be written for patient as discussed his vitals are stable. He denies any complaints. Plan will be to discharge patient ED Medical Decision Making - Lab Data Result diagrams: 01/08/22 12:16 01/08/22 12:16 - EKG Data -: EKG Interpreted by Me EKG shows normal: sinus rhythm Rate: normal - EKG Data When compared to previous EKG there are: no significant change Interpretation: no acute changes, normal EKG - Radiology Data Radiology results: report reviewed - Medical Decision Making This is a 61-year-old male with multiple medical comorbidities who presents for evaluation of shortness of breath and chest tightness times several days. Vital stable. Patient has pitting edema to bilateral lower extremities. Labs reviewed. D-dimer elevated. BNP elevated. Your cardiac enzymes unremarkable. Chest x-ray grossly unremarkable. CTA chest performed to rule out acute pulmonary embolism. The patient has no acute pulmonary embolism, he has mild congestive heart failure. He was given furosemide intravenously here with good diuresis. Overall he remains well-appearing. He has no dyspnea tachypnea or hypoxia necessitating further intravenous diuretics and there is no evidence at this time that he requires inpatient hospitalization for management of his symptoms. Had multiple extensive conversations with the patient at his bedside concerning his compliance and adherence to his blood pressure and diuretic medication management. Patient states he is scheduled to see his primary care doctor within 1 week. As a courtesy patient's blood pressure medication as well as furosemide were written for him. He is stable for discharge to home. For discharge she was given strict verbal and written return precautions. Patient verbalized understanding and agreement the plan of care. Critical care attestation.: If time is entered above; I have spent that time in minutes in the direct care of this critically ill patient, excluding procedure time. ED Disposition Clinical Impression: Congestive heart failure Disposition: HOME / SELF CARE / HOMELESS Is pt being admited?: No Does the pt Need Aspirin: No Condition: Stable Instructions: Low-Sodium Eating Plan, Heart Failure, Diagnosis, [id number], Heart Failure, Diagnosis, Preventing Heart Failure Additional Instructions: It is extremely important that you see your primary care doctor within 1 week f or reassessment. You will need to discuss with your primary care doctor low cost alternatives to your regular medications, if they exist, so that you can continue to be able to afford your medications. This is very important. Take your medications as prescribed. Observe your symptoms very carefully. Return to the nearest emergency department as soon as possible if you develop chest pain, shortness of breath, difficulty breathing, palpitations, inability tolerate liquids or solids, or if any other new worrisome symptoms develop. Prescriptions: Losartan [Cozaar] 25 mg PO QDAY #30 tablet Furosemide [Lasix TAB] 40 mg PO BID #60 tablet Metoprolol [Lopressor TAB] 25 mg PO BID #60 tablet Rivaroxaban [Xarelto] 20 mg PO QDAY 30 Days #30 tab Referrals: PRIMARY CARE, [Primary Care Provider] - 3-5 Days
--- NOTE | 2022-01-08 20:16 | Cat Scan Report ---
CTA CHEST WITH CONTRAST INDICATION / CLINICAL INFORMATION: hx of dvt, p/w chest pain, sob, eval for PE. TECHNIQUE: Axial CT images were obtained through the chest after injection of IV contrast. 3 plane PR P and/or 3D reconstructions were produced. All CT scans at this location are performed using CT dose reduction for ALARA by means of automated exposure control. COMPARISON: 11/19/2021 FINDINGS: PULMONARY EMBOLUS: None. THORACIC AORTA: Mild atherosclerotic calcification without acute abnormality. HEART: Mild global cardiomegaly. CORONARY ARTERY CALCIFICATION: Present -- Mild. MEDIASTINUM / FLORECITA: No significant abnormality. PLEURA: Tiny bilateral pleural effusions. No pneumothorax. LUNGS: Mild interstitial edema. ADDITIONAL FINDINGS: None. UPPER ABDOMEN: No acute findings. SKELETAL STRUCTURES: No significant osseous abnormality. IMPRESSION: 1. No CT evidence for pulmonary embolism. 2. Findings likely indicating mild CHF as above. Signer Name: Hernandez Angel MD Signed: 01/08/2022 8:12 PM Workstation Name: [id number]
[2022-01-09 00:47] VITALS: BP 171/119
--- NOTE | 2022-01-09 14:07 | Electrocardiograph Report ---
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
== END 2022-01-09 00:47 | disposition home or self-care (01) ==
LOC: ED 11:02
DX: I11.0 Hypertensive heart disease with heart failure (principal); I50.9 Heart failure, unspecified; M19.90 Unspecified osteoarthritis, unspecified site; Z87.891 Personal history of nicotine dependence
CPT/HCPCS: 36415; 71046; 71275; 80053; 83880; 84484; 85025; 85610; 85730; 93005; 96374; 99284; J1940; Q9967

== ENCOUNTER 2022-01-26 11:37 | Emergency (ER) | payer SELFPAY ==
[2022-01-26 12:25] VITALS: BP 147/70
== END 2022-01-27 03:34 | disposition left against medical advice (07) ==
LOC: ED 11:37
DX: M79.606 Pain in leg, unspecified (principal); Z53.21 Procedure and treatment not carried out due to patient leaving prior to being seen by health care provider